=== PATIENT | male | born 1960 | race Caucasian/White ===

== ENCOUNTER 2016-10-18 15:25 | Emergency (ER) | payer MEDICAID ==
--- NOTE | 2016-10-18 16:22 | EDM.PDOC ---
ED HPI Trauma - General Chief Complaint: Lower Extremity Injury/Pain Stated Complaint: FOOT PAIN - BOTH FEET Time Seen by Provider: 10/18/16 16:12 Source: Reports: Patient History Limitations: Reports: No limitations - History of Present Illness INITIAL COMMENTS - FREE TEXT/NARRATIVE: Patient presents for evaluation and treatment of an acute gout flare. Patient reports that this is been going on for the last 3 or 4 days. He says he cannot walk due to the pain. He reports that it is the worst in the left great toe. he also reports pain to the right lateral ankle. He states he cannot walk due to the pain. He reports erythema and swelling to the left toes. He reports that he has had gout before and has been on colchicine previously. He is not on any medications to lower his uric acid levels. While he was being triaged the nurse noticed that his heart rate was rapid and irregular. He is in A. fib and has a history of A. fib. He is currently on metoprolol twice a day and he states that he has been taking this as prescribed. He states when he first was diagnosed A. fib with RVR he would have shortness of breath, chest pain and diaphoresis. He denies any of this today. Specifically, he denies any chest pain, palpitations, fatigue, diaphoresis, shortness of breath, dizziness or lightheadedness. He states that he was seeing a primary care provider and was told to see cardiology to havea cardioversion but has never had this done. He states that he has improved his diet and is no longer drinking alcohol. He currently takes a 325 mg aspirin a day. He was unable to afford xarelto. He was previously on Coumadin, is it unclear why he went off of this medication. He did not refill it. Allergies/ADRs: Allergies No Known Allergies Allergy (Verified 08/15/14 23:21) Home Medications: Ambulatory Orders Aspirin [Ecotrin] 325 mg PO DAILY 08/15/14 [Confirmed 10/18/16] Naproxen 500 mg PO TID #30 tablet 04/22/15 [Confirmed 10/18/16] oxyCODONE HCl/Acetaminophen [Percocet 5-325 mg Tablet] 1 - 2 each PO Q4H PRN # 20 tablet 06/25/16 [Confirmed 10/18/16] Acetaminophen/oxyCODONE [Percocet 325-5 MG] 1 tab PO Q6H PRN #20 tablet Diltiazem [Cardizem CD] 120 mg PO DAILY #30 cap.cd 10/18/16 Metoprolol Tartrate 50 mg PO BID 10/18/16 [Confirmed 10/18/16] Prednisone [IJD: predniSONE] 40 mg PO WITHBREAKFAST #10 tab 10/18/16 Warfarin [Coumadin] 5 mg PO DAILY #10 tablet 10/18/16 Past Medical History - Past Health History Medical/Surgical History: Denies Medical/Surgical History Cardiovascular History: Reports: Afib, Hypertension Other Cardiovascular History: stopped taking xarelto as could not afford it but is on adult asa Musculoskeletal History: Reports: Gout - Past Surgical History Other Cardiovascular Surgeries/Procedures: angiogram Social & Family History - Tobacco Use Smoking Status *Q: Never Smoker - Caffeine Use Caffeine Use: Reports: Soda - Alcohol Use Days Per Week of Alcohol Use: 3 Number of Drinks Per Day: 0 Total Drinks Per Week: 0 - Recreational Drug Use Recreational Drug Use: No Drug Use in Last 12 Months: No Recreational Drug Type: Reports: Marijuana/Hashish Recreational Drug Use Frequency: Rarely - Living Situation & Occupation Living situation: Reports: Occupation: employed Review of Systems - Review of Systems Review Of Systems: See Below Constitutional: Reports: other (denies fatigue). Denies: diaphoresis Ears: Denies: dizziness Respiratory: Denies: Shortness of Breath Cardiovascular: Reports: irregular heart rate. Denies: chest pain, lightheadedness, palpitations Musculoskeletal: Reports: foot pain (left foto, right ankle), joint swelling ( left toes, right lateral ankle) Skin: Reports: erythema (left toes) Neurological: Reports: Difficulty Walking. Denies: Numbness, Tingling Trauma Exam - Physical Exam Exam: See Below Exam Limited By: No limitations General Appearance: Reports: alert, WD/WN, no apparent distress Respiratory Exam: Reports: no respiratory distress, lungs clear, normal breath sounds Cardiovascular: Reports: normal peripheral pulses, no murmur, tachycardia, irregularly irregular GI/Abdominal: Reports: soft, non tender Extremities: Reports: joint effusion (left great toe), pain with movement, tenderness (left toes, rigt lateral ankle), unable to bear weight Neurologic: Reports: alert, normal mood/affect Skin: Reports: Other (erythema to the left toes) EKG INTERPRETATION EKG Date: 10/18/16 Time: 16:50 Rhythm: a-fib Rate (beats/min): 129 (86 to 165) Mousie: normal P-wave: absent QRS: normal ST-T: normal QT: normal EKG Interpretation Comments: a.fib with a rate of 86-15 bpm. Q wave in AVF and near q wave in III. Consider inferior wall ischemia. Reviewed by myself and Dr. Olmedo. Course - Vital Signs Last Recorded V/S: Last Vital Signs Temp 36.7 C 10/18/16 15:35 Pulse 127 H 10/18/16 19:41 Resp 18 10/18/16 19:41 BP 136/95 H 10/18/16 19:41 Pulse Ox 95 10/18/16 19:41 - Orders/Labs/Meds Orders: Active Orders 24 hr Category Date Time Status Cardiac Monitoring [RC] . DIRECTED Care 10/18/16 16:23 Active EKG 12 Lead [EKG Documentation Completion] [RC] STAT Care 10/18/16 16:23 Active Peripheral IV Care [RC] . DIRECTED Care 10/18/16 16:23 Active Chest 1V Frontal [CR] Stat Exams 10/18/16 16:25 Taken Peripheral IV Insertion Adult [OM.PC] Routine Oth 10/18/16 16:22 Ordered Labs: Laboratory Tests 10/18/16 10/18/16 10/18/16 Range/Units 16:30 16:30 16:30 WBC 10.12 H (4.23-9.07) K/mm3 RBC 5.15 (4.63-6.08) M/mm3 Hgb 16.4 (13.7-17.5) gm/L Hct 47.4 (40.1-51.0) % MCV 92.0 (79.0-92.2) fl MCH 31.8 (25.7-32.2) pg MCHC 34.6 (32.2-35.5) g/dl RDW Std Deviation 45.1 H (35.1-43.9) fL Plt Count 210 (163-337) K/mm3 MPV 9.7 (9.4-12.3) fl Neut % (Auto) 58.5 (34.0-67.9) % Lymph % (Auto) 28.6 (21.8-53.1) % Wharton % (Auto) 11.9 (5.3-12.2) % Eos % (Auto) 0.5 L (0.8-7.0) Baso % (Auto) 0.2 (0.1-1.2) % Neut # 5.93 H (1.78-5.38) K/mm3 Lymph # 2.89 (1.32-3.57) K/mm3 Wharton # 1.20 H (0.30-0.82) K/mm3 Eos # 0.05 (0.04-0.54) K/mm3 Baso # 0.02 (0.01-0.08) K/mm3 PT (8.0-13.0) SECONDS INR Sodium 140 (136-145) mEq/L Potassium 4.0 (3.5-5.1) mEq/L Chloride 104 (98-107) mEq/L Carbon Dioxide 24 (21-32) mEq/L Anion Gap 16.0 H (5-15) BUN 8 (7-18) mg/dL Creatinine 1.1 (0.7-1.3) mg/dL Est Cr Clr Drug Dosing 77.96 mL/min Estimated GFR (MDRD) > 60 (>60) mL/min BUN/Creatinine Ratio 7.3 L (14-18) Glucose 99 (74-106) mg/dL Uric Acid (3.5-7.2) mg/dL Calcium 8.9 (8.5-10.1) mg/dL Total Bilirubin 1.4 H (0.2-1.0) mg/dL AST 18 (15-37) U/L ALT 31 (16-63) U/L Alkaline Phosphatase 91 (46-116) U/L CK-MB (CK-2) (0-3.6) ng/ml Troponin I < 0.017 (0.00-0.056) ng/mL B-Natriuretic Peptide 546 H (0-100) pg/mL Total Protein 7.4 (6.4-8.2) g/dl Albumin 3.9 (3.4-5.0) g/dl Globulin 3.5 gm/dL Albumin/Globulin Ratio 1.1 (1-2) 10/18/16 10/18/16 Range/Units 16:30 16:30 WBC (4.23-9.07) K/mm3 RBC (4.63-6.08) M/mm3 Hgb (13.7-17.5) gm/L Hct (40.1-51.0) % MCV (79.0-92.2) fl MCH (25.7-32.2) pg MCHC (32.2-35.5) g/dl RDW Std Deviation (35.1-43.9) fL Plt Count (163-337) K/mm3 MPV (9.4-12.3) fl Neut % (Auto) (34.0-67.9) % Lymph % (Auto) (21.8-53.1) % Wharton % (Auto) (5.3-12.2) % Eos % (Auto) (0.8-7.0) Baso % (Auto) (0.1-1.2) % Neut # (1.78-5.38) K/mm3 Lymph # (1.32-3.57) K/mm3 Wharton # (0.30-0.82) K/mm3 Eos # (0.04-0.54) K/mm3 Baso # (0.01-0.08) K/mm3 PT 10.9 (8.0-13.0) SECONDS INR 1.00 Sodium (136-145) mEq/L Potassium (3.5-5.1) mEq/L Chloride (98-107) mEq/L Carbon Dioxide (21-32) mEq/L Anion Gap (5-15) BUN (7-18) mg/dL Creatinine (0.7-1.3) mg/dL Est Cr Clr Drug Dosing mL/min Estimated GFR (MDRD) (>60) mL/min BUN/Creatinine Ratio (14-18) Glucose (74-106) mg/dL Uric Acid 10.5 H (3.5-7.2) mg/dL Calcium (8.5-10.1) mg/dL Total Bilirubin (0.2-1.0) mg/dL AST (15-37) U/L ALT (16-63) U/L Alkaline Phosphatase (46-116) U/L CK-MB (CK-2) 0.9 (0-3.6) ng/ml Troponin I (0.00-0.056) ng/mL B-Natriuretic Peptide (0-100) pg/mL Total Protein (6.4-8.2) g/dl Albumin (3.4-5.0) g/dl Globulin gm/dL Albumin/Globulin Ratio (1-2) Meds: Medications Discontinued Medications Generic Name Dose Route Start Last Admin Trade Name Melchorq PRN Reason Stop Dose Admin Colchicine 0.6 mg 10/18/16 16:29 10/18/16 16:57 Colcrys PO 10/18/16 16:30 0.6 mg ONETIME ONE Administration Colchicine 0.6 mg 10/18/16 17:49 10/18/16 17:59 Colcrys PO 10/18/16 17:50 0.6 mg ONETIME ONE Administration Colchicine 0.6 mg 10/18/16 18:20 10/18/16 19:17 Colcrys PO 10/18/16 18:21 0.6 mg ONETIME ONE Administration Diltiazem HCl 10 mg 10/18/16 16:25 10/18/16 16:58 Diltiazem IVPUSH 10/18/16 16:26 10 mg ONETIME ONE Administration Diltiazem HCl 120 mg 10/18/16 18:19 10/18/16 19:17 Cardizem Cd PO 10/18/16 18:20 120 mg ONETIME ONE Administration Furosemide 20 mg 10/18/16 17:51 10/18/16 17:59 Lasix IVPUSH 10/18/16 17:52 20 mg NOW ONE Administration Hydromorphone HCl 0.5 mg 10/18/16 16:25 10/18/16 16:55 Dilaudid IVPUSH 10/18/16 16:26 0.5 mg NOW STA Administration Sodium Chloride Confirm 10/18/16 16:45 10/18/16 19:10 Normal Saline Administered 10/18/16 16:46 Not Given Dose 1,000 mls @ as directed .ROUTE .STK-MED ONE Ketorolac Tromethamine 30 mg 10/18/16 16:26 10/18/16 16:49 Toradol IVPUSH 10/18/16 16:27 30 mg ONETIME ONE Administration Methylprednisolone Sodium Succinate 125 mg 10/18/16 16:25 10/18/16 16:52 Solu-Medrol IVPUSH 10/18/16 16:26 125 mg ONETIME ONE Administration Sodium Chloride 10 ml 10/18/16 16:23 10/18/16 17:01 Saline Flush FLUSH 10 ml ASDIRECTED PRN Administration Keep Vein Open Warfarin Sodium 10 mg 10/18/16 18:19 10/18/16 19:17 Coumadin PO 10/18/16 18:20 10 mg ONETIME ONE Administration - Radiology Interpretation Free Text/Narrative:: Chest 1view shows no acute intrathoracic process. - Re-Assessments/Exams Free Text/Narrative Re-Assessment/Exam: 10/18/16 18:55 Labs returned. WBC is 10.12, hgb is 16.4 and plts are 210 uric acid is high at 10.5 Trop is normal at <0.017 CKMB is normal at 0.9 BNP is elevated at 546 Sodium is 140, potassium is 4.0 and chloride is 104. Anion gap is 16.0 and glucose is 99 Patient feels improved after the IV solumedrol, dilaudid and colchine x 3. Case was discussed with Dr. Olmedo. Recommended giving IV bolus of 10mg cardizem here in the ER and an oral dose. Heart rate after cardizem bolus was 90 -100. Patient's [id number] score is 2. This comes with a recommendation for anticoagulation. Patient cannot afford xeralto. Was on coumadin previously but did not refill his medication. Agrees to restart coumadin again today. discussed with Dr. Olmedo. Will not bridge with lovenox due to costs concerns. Will start with 10mg PO today in Ed, 7.5mg tomorrow then 5mg daily. Follow-up with PCP this week. Departure - Departure Time of Disposition: 18:56 Disposition: Home, Self-Care 01 Condition: good Clinical Impression: Atrial fibrillation with rapid ventricular response, Gout attack Prescriptions: Acetaminophen/oxyCODONE [Percocet 325-5 MG] 1 tab PO Q6H PRN #20 tablet PRN Reason: Pain Diltiazem [Cardizem CD] 120 mg PO DAILY #30 cap.cd Prednisone [IJD: predniSONE] 40 mg PO WITHBREAKFAST #10 tab Warfarin [Coumadin] 5 mg PO DAILY #10 tablet Instructions: Gout, [id number], Atrial Fibrillation, [id number] Referrals: Sloane Billy PA-C [Primary Care Provider] - Forms: ED Department Discharge Additional Instructions: You were given medication in the ER that can affect your ability to drive and operate machinery. Do not drive or operate machinery within 12 hours of taking prescription narcotic pain medication. Take cardizem as prescribed 1 tab PO daily, start this medication tomorrow, 10-19 Take coumadin as prescribed. Start tomorrow. Take 1.5 tabs or 7.5mg no 10-19-16 then 1 tab or 5mg daily. Follow-up with PCP this week for an INR (for coumadin) check. I also recommend you discuss medication to lower your uric acid levels. Take prednisone as prescribed. 2 tabs (40mg) PO daily x 5 days, start 10-19-16. May take OTC ibuprofen as needed for pain. May take percocet 1-2 tabs PO every 4 -6 hours prn severe pain. No driving or operating machinery within 12 hours of taking the percocet. Percocet can be habit forming, I recommend you take as few of these as needed to control your pain. Please return to the ER if your symptoms change or worsen. - My Orders Last 24 Hours: My Active Orders 10/18/16 16:22 Peripheral IV Insertion Adult [OM.PC] Routine 10/18/16 16:23 Cardiac Monitoring [RC] . DIRECTED EKG 12 Lead [EKG Documentation Completion] [RC] STAT Peripheral IV Care [RC] . DIRECTED 10/18/16 16:25 Chest 1V Frontal [CR] Stat - Assessment/Plan Last 24 Hours: My Active Orders 10/18/16 16:22 Peripheral IV Insertion Adult [OM.PC] Routine 10/18/16 16:23 Cardiac Monitoring [RC] . DIRECTED EKG 12 Lead [EKG Documentation Completion] [RC] STAT Peripheral IV Care [RC] . DIRECTED 10/18/16 16:25 Chest 1V Frontal [CR] Stat
[2016-10-18] MEDS ORDERED: Sodium Chloride 0.9% 10 ML Syringe FLUSH PRN (16:23)
[2016-10-18] MEDS ORDERED: Diltiazem 25 MG/5 ML SDV IVPUSH ONE (16:25)
[2016-10-18] MEDS ORDERED: HYDROmorphone 0.5 MG/0.5 ML Syringe IVPUSH STA (16:25)
[2016-10-18] MEDS ORDERED: methylPREDNISolone Sodium Succinate 125 MG/2 ML SDV IVPUSH ONE (16:25)
[2016-10-18] MEDS ORDERED: Ketorolac 30 MG/ML SDV IVPUSH ONE (16:26)
[2016-10-18] MEDS ORDERED: Colchicine 0.6 MG Tab PO ONE ×3 (16:29→18:20)
[2016-10-18] MEDS ORDERED: Sodium Chloride 0.9% 1,000 ML ONE (16:45)
[2016-10-18] MEDS ORDERED: Furosemide 40 MG/4 ML VIAL IVPUSH ONE (17:51)
[2016-10-18] MEDS ORDERED: Diltiazem 120 MG Cap.CD PO ONE (18:19)
[2016-10-18] MEDS ORDERED: Warfarin 10 MG Tab PO ONE (18:19)
[2016-10-18 19:18] VITALS: BP 136/95
--- NOTE | 2016-10-20 08:01 | CR ---
Chest: Portable view of the chest was obtained. Comparison: Previous chest x-ray of 06/25/16. Heart size at the upper limits of normal. Tortuous thoracic aorta is seen. Lungs are clear with no acute infiltrates. Bony structures are grossly intact. Impression: 1. Nothing acute is identified on portable chest x-ray. Diagnostic code #2
== END 2016-10-18 19:42 | disposition home or self-care (01) ==
LOC: JD.ED 15:25 → SUPCPDRO 15:25 → JD.ED 19:42
DX: I48.91 Unspecified atrial fibrillation (principal); M10.9 Gout, unspecified; I10 Essential (primary) hypertension; Z79.82 Long term (current) use of aspirin; Z79.01 Long term (current) use of anticoagulants; Z79.899 Other long term (current) drug therapy
CPT/HCPCS: 36415; 71010; 80053; 82553; 83880; 84484; 84550; 85025; 85610; 93005; 96374; 96375; 99284; A9270; J1170; J1885; J1940; J2930; J7050; J3490

== ENCOUNTER 2017-06-15 12:46 | Inpatient (IN) | payer MEDICAID ==
[2017-06-15] MEDS ORDERED: LORazepam 2 MG/ML MDV IVPUSH ONE (13:16)
[2017-06-15] MEDS ORDERED: Magnesium Sulfate/Water 2 GM in Premix Bag 1 BAG IV ONE (13:16)
[2017-06-15] MEDS ORDERED: Diltiazem 25 MG/5 ML SDV IVPUSH ONE (13:16)
[2017-06-15] MEDS ORDERED: Sodium Chloride 0.9% 1,000 ML IV ONE (13:17)
--- NOTE | 2017-06-15 13:24 | EDM.PDOC ---
ED HPI GENERAL MEDICAL PROBLEM - General Chief Complaint: Cardiovascular Problem Stated Complaint: SOB/RACING HEARTBEAT Time Seen by Provider: 06/15/17 13:05 Source of Information: Reports: Patient History Limitations: Reports: No Limitations - History of Present Illness INITIAL COMMENTS - FREE TEXT/NARRATIVE: Patient's 57-year-old male with a history of A. fib/A flutter who presents to the ED with a fast heart rate and shortness of breath. Patient states he has chronic A. fib and is supposed be taking metoprolol, warfarin, and Cardizem. States he's been taking naproxen and aspirin full adult dose every day. States he stopped taking all these medications minus naproxen and aspirin due to cost. 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 He had PFTs and echocardiogram obtained. He was suppose to schedule cardioversion but did not return. Patient also has a history of alcohol abuse. States he normally drinks about a pint of fireball for about 3-4 days and then stops. States his last drink was approximately 3 days ago. In addition he has history of gout and notes that he is currently having a gout attack to his left big toe and also to his right pinky finger. States pattern similar to previous episodes. They diagnosed with pseudogout. He has been experiencing shortness of breath with nonproductive cough. He has been experiencing PND and orthopnea. He's gained approximately 5-10 pounds over the last month. Denies any chest pain, nausea/vomiting, diaphoresis, dizziness, syncopal episodes, or any additional complaints. Middle Chest Pain Score (Numeric/FACES): 0 Lower Pelvic Pain Score (Numeric/FACES): 7 Left Feet Pain Score (Numeric/FACES): 5 - Related Data Allergies Allergy/AdvReac Type Severity Reaction Status Date / Time No Known Allergies Allergy Verified 06/15/17 13:01 Home Meds: Home Meds Aspirin [Ecotrin] 325 mg PO DAILY 08/15/14 [History] Naproxen 500 mg PO TID #30 tablet 04/22/15 [Rx] Acetaminophen/oxyCODONE [Percocet 325-5 MG] 1 tab PO Q6H PRN #20 tablet [Rx] Diltiazem [Cardizem CD] 120 mg PO DAILY #30 cap.cd 10/18/16 [Rx] Metoprolol Tartrate 50 mg PO BID 10/18/16 [History] Warfarin [Coumadin] 5 mg PO DAILY #10 tablet 10/18/16 [Rx] Past Medical History - Past Health History Medical/Surgical History: Denies Medical/Surgical History Cardiovascular History: Reports: Afib, Hypertension Other Cardiovascular History: stopped taking xarelto as could not afford it but is on adult asa Respiratory History: Reports: SOB Musculoskeletal History: Reports: Gout Other Neuro History: broken neck, Halo - Past Surgical History Other Cardiovascular Surgeries/Procedures: angiogram Social & Family History - Family History Family Medical History: Noncontributory - Tobacco Use Smoking Status *Q: Never Smoker - Caffeine Use Caffeine Use: Reports: Soda - Alcohol Use Days Per Week of Alcohol Use: 3 Number of Drinks Per Day: 0 Total Drinks Per Week: 0 - Recreational Drug Use Recreational Drug Use: No Drug Use in Last 12 Months: No Recreational Drug Type: Reports: Marijuana/Hashish Recreational Drug Use Frequency: Rarely - Living Situation & Occupation Living situation: Reports: Occupation: Employed ED ROS GENERAL - Review of Systems Review Of Systems: ROS reveals no pertinent complaints other than HPI. ED EXAM, GENERAL - Physical Exam Exam: See Below Exam Limited By: No Limitations General Appearance: Alert, WD/WN, No Apparent Distress Ears: Hearing Grossly Normal Nose: Normal Inspection Throat/Mouth: Normal Inspection, Normal Oropharynx, Normal Voice, No Airway Compromise Neck: Normal Inspection, Supple Respiratory/Chest: No Respiratory Distress, Lungs Clear, Normal Breath Sounds, No Accessory Muscle Use, Chest Non-Tender Cardiovascular: Normal Peripheral Pulses, No Murmur (None appreciated), Irregularly Irregular (A flutter at a variable rate of 127.) Peripheral Pulses: 2+: Radial (L), Radial (R) GI/Abdominal: Normal Bowel Sounds, Soft, Non-Tender, No Organomegaly, No Distention Back Exam: Normal Inspection Extremities: Normal Inspection, Normal Range of Motion, Non-Tender, No Pedal Edema, Normal Capillary Refill Neurological: Alert, Oriented, CN II-XII Intact, Normal Cognition, No Motor/ Sensory Deficits Psychiatric: Normal Affect, Normal Mood Skin Exam: Warm, Dry, Intact, Normal Color Course - Vital Signs Last Recorded V/S: Last Vital Signs Temp 97.5 F 06/15/17 20:00 Pulse 93 06/15/17 21:56 Resp 20 06/15/17 20:00 BP 143/94 H 06/15/17 21:56 Pulse Ox 97 06/15/17 20:00 - Orders/Labs/Meds Orders: Active Orders 24 hr Category Date Time Status Admission Status [Patient Status] [ADT] Routine ADT 06/15/17 17:28 Active Diltiazem 125 mg Med 06/15/17 14:00 Active Sodium Chloride 0.9% [Normal Saline] 100 ml IV TITRATE Medication Orders Albuterol/Ipratropium (Duoneb 3.0-0.5 Mg/3 Ml) 3 ml NEB Q4H PRN PRN Reason: Shortness Of Breath/wheezing Allopurinol (Zyloprim) 100 mg PO DAILY [facility] Last Admin: 06/15/17 21:46 Dose: 100 mg Diltiazem HCl (Cardizem Cd) 240 mg PO DAILY [facility] Diltiazem HCl 125 mg/ Sodium (Chloride) 125 mls @ 5 mls/hr IV TITRATE JESSICA; 5 MG /HR PRN Reason: Protocol Last Titration: 06/15/17 20:05 Dose: 6 mg/hr, 6 mls/hr Titration: 06/15/17 16:14 Dose: 4 mg/hr, 4 mls/hr Admin: 06/15/17 14:44 Dose: 3 mg/hr, 3 mls/hr Metoprolol Tartrate (Lopressor) 50 mg PO BID [facility] Last Admin: 06/15/17 21:56 Dose: 50 mg Naproxen (Naprosyn) 500 mg PO Q12HR [facility] Last Admin: 06/15/17 21:56 Dose: 500 mg Oxycodone/Acetaminophen (Percocet 325-5 Mg) 1 - 2 tab PO Q6H PRN PRN Reason: Pain Last Admin: 06/15/17 21:44 Dose: 1 tab Temazepam (Restoril) 15 mg PO BEDTIME PRN PRN Reason: Sleep Last Admin: 06/15/17 21:47 Dose: 15 mg Warfarin Sodium (Pharmacy To Dose - Warfarin) 1 dose .XX ASDIRECTED [facility] Labs: Laboratory Tests 06/15/17 06/15/17 06/15/17 Range/Units 13:01 13:01 13:01 WBC 13.41 H (4.23-9.07) K/mm3 RBC 6.06 (4.63-6.08) M/mm3 Hgb 18.6 H (13.7-17.5) gm/L Hct 53.5 H (40.1-51.0) % MCV 88.3 (79.0-92.2) fl MCH 30.7 (25.7-32.2) pg MCHC 34.8 (32.2-35.5) g/dl RDW Std Deviation 44.0 H (35.1-43.9) fL Plt Count 299 (163-337) K/mm3 MPV 9.7 (9.4-12.3) fl Neut % (Auto) 66.8 (34.0-67.9) % Lymph % (Auto) 23.6 (21.8-53.1) % [place] % (Auto) 8.4 (5.3-12.2) % Eos % (Auto) 0.6 L (0.8-7.0) Baso % (Auto) 0.2 (0.1-1.2) % Neut # (Auto) 8.94 H (1.78-5.38) K/mm3 Lymph # (Auto) 3.17 (1.32-3.57) K/mm3 [place] # (Auto) 1.13 H (0.30-0.82) K/mm3 Eos # (Auto) 0.08 (0.04-0.54) K/mm3 Baso # (Auto) 0.03 (0.01-0.08) K/mm3 Manual Slide Review Abnormal smear PT 12.0 (8.0-13.0) SECONDS INR 1.09 APTT (22-36) SECONDS D-Dimer, Quantitative (0.19-0.59) mg/L Sodium 136 (136-145) mEq/L Potassium 4.2 (3.5-5.1) mEq/L Chloride 100 (98-107) mEq/L Carbon Dioxide 25 (21-32) mEq/L Anion Gap 15.2 H (5-15) BUN 13 (7-18) mg/dL Creatinine 1.4 H (0.7-1.3) mg/dL Est Cr Clr Drug Dosing 43.74 mL/min Estimated GFR (MDRD) 52 (>60) mL/min BUN/Creatinine Ratio 9.3 L (14-18) Glucose 109 H (74-106) mg/dL Uric Acid 10.2 H (3.5-7.2) mg/dL Calcium 9.2 (8.5-10.1) mg/dL Magnesium 1.9 (1.8-2.4) mg/dl Total Bilirubin 1.9 H (0.2-1.0) mg/dL AST 31 (15-37) U/L ALT 35 (16-63) U/L Alkaline Phosphatase 90 (46-116) U/L Troponin I < 0.017 (0.00-0.056) ng/mL C-Reactive Protein (<1.0) mg/dL NT-Pro-B Natriuret Pep 6192 H (0-125) pg/mL Total Protein 8.1 (6.4-8.2) g/dl Albumin 3.9 (3.4-5.0) g/dl Globulin 4.2 gm/dL Albumin/Globulin Ratio 0.9 L (1-2) TSH 3rd Generation 2.123 (0.358-3.74) uIU/mL Urine Opiates Screen (NEGATIVE) Ur Buprenorphine Scrn (NEGATIVE) Ur Oxycodone Screen (NEGATIVE) Urine Methadone Screen (NEGATIVE) Ur Propoxyphene Screen (NEGATIVE) Ur Barbiturates Screen (NEGATIVE) Ur Tricyclics Screen (NEGATIVE) Ur Phencyclidine Scrn (NEGATIVE) Ur Amphetamine Screen (NEGATIVE) U Methamphetamines Scrn (NEGATIVE) U Benzodiazepines Scrn (NEGATIVE) U Cocaine Metab Screen (NEGATIVE) U Marijuana (THC) Screen (NEGATIVE) 06/15/17 06/15/17 06/15/17 Range/Units 13:01 13:01 13:01 WBC (4.23-9.07) K/mm3 RBC (4.63-6.08) M/mm3 Hgb (13.7-17.5) gm/L Hct (40.1-51.0) % MCV (79.0-92.2) fl MCH (25.7-32.2) pg MCHC (32.2-35.5) g/dl RDW Std Deviation (35.1-43.9) fL Plt Count (163-337) K/mm3 MPV (9.4-12.3) fl Neut % (Auto) (34.0-67.9) % Lymph % (Auto) (21.8-53.1) % [place] % (Auto) (5.3-12.2) % Eos % (Auto) (0.8-7.0) Baso % (Auto) (0.1-1.2) % Neut # (Auto) (1.78-5.38) K/mm3 Lymph # (Auto) (1.32-3.57) K/mm3 [place] # (Auto) (0.30-0.82) K/mm3 Eos # (Auto) (0.04-0.54) K/mm3 Baso # (Auto) (0.01-0.08) K/mm3 Manual Slide Review PT (8.0-13.0) SECONDS INR APTT 28 (22-36) SECONDS D-Dimer, Quantitative 0.82 H (0.19-0.59) mg/L Sodium (136-145) mEq/L Potassium (3.5-5.1) mEq/L Chloride (98-107) mEq/L Carbon Dioxide (21-32) mEq/L Anion Gap (5-15) BUN (7-18) mg/dL Creatinine (0.7-1.3) mg/dL Est Cr Clr Drug Dosing mL/min Estimated GFR (MDRD) (>60) mL/min BUN/Creatinine Ratio (14-18) Glucose (74-106) mg/dL Uric Acid (3.5-7.2) mg/dL Calcium (8.5-10.1) mg/dL Magnesium (1.8-2.4) mg/dl Total Bilirubin (0.2-1.0) mg/dL AST (15-37) U/L ALT (16-63) U/L Alkaline Phosphatase (46-116) U/L Troponin I (0.00-0.056) ng/mL C-Reactive Protein 2.6 H* (<1.0) mg/dL NT-Pro-B Natriuret Pep (0-125) pg/mL Total Protein (6.4-8.2) g/dl Albumin (3.4-5.0) g/dl Globulin gm/dL Albumin/Globulin Ratio (1-2) TSH 3rd Generation (0.358-3.74) uIU/mL Urine Opiates Screen (NEGATIVE) Ur Buprenorphine Scrn (NEGATIVE) Ur Oxycodone Screen (NEGATIVE) Urine Methadone Screen (NEGATIVE) Ur Propoxyphene Screen (NEGATIVE) Ur Barbiturates Screen (NEGATIVE) Ur Tricyclics Screen (NEGATIVE) Ur Phencyclidine Scrn (NEGATIVE) Ur Amphetamine Screen (NEGATIVE) U Methamphetamines Scrn (NEGATIVE) U Benzodiazepines Scrn (NEGATIVE) U Cocaine Metab Screen (NEGATIVE) U Marijuana (THC) Screen (NEGATIVE) 06/15/17 Range/Units 16:25 WBC (4.23-9.07) K/mm3 RBC (4.63-6.08) M/mm3 Hgb (13.7-17.5) gm/L Hct (40.1-51.0) % MCV (79.0-92.2) fl MCH (25.7-32.2) pg MCHC (32.2-35.5) g/dl RDW Std Deviation (35.1-43.9) fL Plt Count (163-337) K/mm3 MPV (9.4-12.3) fl Neut % (Auto) (34.0-67.9) % Lymph % (Auto) (21.8-53.1) % [place] % (Auto) (5.3-12.2) % Eos % (Auto) (0.8-7.0) Baso % (Auto) (0.1-1.2) % Neut # (Auto) (1.78-5.38) K/mm3 Lymph # (Auto) (1.32-3.57) K/mm3 [place] # (Auto) (0.30-0.82) K/mm3 Eos # (Auto) (0.04-0.54) K/mm3 Baso # (Auto) (0.01-0.08) K/mm3 Manual Slide Review PT (8.0-13.0) SECONDS INR APTT (22-36) SECONDS D-Dimer, Quantitative (0.19-0.59) mg/L Sodium (136-145) mEq/L Potassium (3.5-5.1) mEq/L Chloride (98-107) mEq/L Carbon Dioxide (21-32) mEq/L Anion Gap (5-15) BUN (7-18) mg/dL Creatinine (0.7-1.3) mg/dL Est Cr Clr Drug Dosing mL/min Estimated GFR (MDRD) (>60) mL/min BUN/Creatinine Ratio (14-18) Glucose (74-106) mg/dL Uric Acid (3.5-7.2) mg/dL Calcium (8.5-10.1) mg/dL Magnesium (1.8-2.4) mg/dl Total Bilirubin (0.2-1.0) mg/dL AST (15-37) U/L ALT (16-63) U/L Alkaline Phosphatase (46-116) U/L Troponin I (0.00-0.056) ng/mL C-Reactive Protein (<1.0) mg/dL NT-Pro-B Natriuret Pep (0-125) pg/mL Total Protein (6.4-8.2) g/dl Albumin (3.4-5.0) g/dl Globulin gm/dL Albumin/Globulin Ratio (1-2) TSH 3rd Generation (0.358-3.74) uIU/mL Urine Opiates Screen Negative (NEGATIVE) Ur Buprenorphine Scrn Negative (NEGATIVE) Ur Oxycodone Screen Negative (NEGATIVE) Urine Methadone Screen Negative (NEGATIVE) Ur Propoxyphene Screen Negative (NEGATIVE) Ur Barbiturates Screen Negative (NEGATIVE) Ur Tricyclics Screen Negative (NEGATIVE) Ur Phencyclidine Scrn Negative (NEGATIVE) Ur Amphetamine Screen Negative (NEGATIVE) U Methamphetamines Scrn Negative (NEGATIVE) U Benzodiazepines Scrn Negative (NEGATIVE) U Cocaine Metab Screen Negative (NEGATIVE) U Marijuana (THC) Screen Presumptive positive H (NEGATIVE) Meds: Medications Generic Name Dose Route Start Last Admin Trade Name Freq PRN Reason Stop Dose Admin Albuterol/Ipratropium 3 ml 06/15/17 20:55 Duoneb 3.0-0.5 Mg/3 Ml NEB Q4H PRN Shortness Of Breath/wheezing Allopurinol 100 mg 06/15/17 21:00 06/15/17 21:46 Zyloprim PO 100 mg DAILY JESSICA Administration Diltiazem HCl 240 mg 06/16/17 09:00 Cardizem Cd PO DAILY JESSICA Diltiazem HCl 125 mg/ Sodium 125 mls @ 5 mls/hr 06/15/17 14:00 06/15/17 20:05 Chloride IV 6 mg/hr TITRATE JESSICA 6 mls/hr Protocol Titration 5 MG/HR Metoprolol Tartrate 50 mg 06/15/17 21:45 06/15/17 21:56 Lopressor PO 50 mg BID JESSICA Administration Naproxen 500 mg 06/15/17 21:00 06/15/17 21:56 Naprosyn PO 500 mg Q12HR JESSICA Administration Oxycodone/Acetaminophen 1 - 2 tab 06/15/17 21:02 06/15/17 21:44 Percocet 325-5 Mg PO 1 tab Q6H PRN Administration Pain Temazepam 15 mg 06/15/17 20:55 06/15/17 21:47 Restoril PO 15 mg BEDTIME PRN Administration Sleep Warfarin Sodium 1 dose 06/15/17 21:15 Pharmacy To Dose - Warfarin .XX ASDIRECTED [facility] Discontinued Medications Generic Name Dose Route Start Last Admin Trade Name Freq PRN Reason Stop Dose Admin Aspirin 325 mg 06/16/17 09:00 Ecotrin PO DAILY JESSICA Diltiazem HCl 15 mg 06/15/17 13:16 06/15/17 13:34 Diltiazem IVPUSH 06/15/17 13:17 15 mg NOW ONE Administration Enoxaparin Sodium 100 mg 06/15/17 21:05 06/15/17 21:47 Lovenox SUBCUT 06/15/17 21:06 100 mg ONETIME ONE Administration Furosemide 40 mg 06/15/17 15:30 06/15/17 16:08 Lasix IVPUSH 06/15/17 15:31 40 mg NOW ONE Administration Magnesium Sulfate 2 gm/ Premix 50 mls @ 25 mls/hr 06/15/17 13:16 06/15/17 13: 37 IV 06/15/17 15:15 25 mls/hr ONETIME ONE Administration Sodium Chloride 1,000 mls @ 75 mls/hr 06/15/17 13:17 06/15/17 13:32 Normal Saline IV 06/16/17 02:36 75 mls/hr ONETIME ONE Administration Sodium Chloride 100 mls @ 60 mls/hr 06/15/17 15:30 06/15/17 15:30 Normal Saline IV 60 mls/hr ASDIRECTED JESSICA Administration Influenza Virus Vaccine 1 each 06/15/17 18:37 Pharmacy To Dose - Influenza Vaccine IM 06/15/17 18:38 ONETIME ONE Influenza Virus Vaccine 60 mcg 06/15/17 18:45 Flulaval Quad [id number] IM 06/15/17 18:46 .ONCE ONE Iopamidol 100 ml 06/15/17 15:17 06/15/17 15:30 Isovue-370 (76%) IVPUSH 06/15/17 15:18 100 ml ONETIME ONE Administration Lorazepam 0.5 mg 06/15/17 13:16 06/15/17 13:33 Ativan IVPUSH 06/15/17 13:17 0.5 mg ONETIME ONE Administration Methylprednisolone Sodium Succinate 125 mg 06/15/17 20:58 06/15/17 21:47 Solu-Medrol IVPUSH 06/15/17 20:59 125 mg ONETIME ONE Administration Sodium Chloride 10 ml 06/15/17 15:17 06/15/17 15:30 Saline Flush FLUSH 06/15/17 15:18 10 ml ONETIME ONE Administration Warfarin Sodium 10 mg 06/15/17 21:04 06/15/17 21:46 Coumadin PO 06/15/17 21:05 10 mg ONETIME ONE Administration - Re-Assessments/Exams Free Text/Narrative Re-Assessment/Exam: IV established with normal saline 75 mL per hour, diltiazem 15 mg IV push, lorazepam 0.5 mg IVP for alcohol withdrawals, magnesium 2 g IV. Initial labs and studies include CBC, chem 14, uric acid, crp, urine drug tox, coag studies, magnesium, proBNP, troponin, cxr, and TSH. EKG atrial flutter with variable conduction no ischemic changes with left axis deviation and left ventricle hypertrophy. Echocardiogram obtained August 17, 2014 impression: Left ventricular ejection fraction by visual estimation is 15%. Left ventricle internal cavity size is normal. Elevated mean atrial pressure. There is moderate biatrial dilatation. Mild mitral regurgitation. Right ventricle systolic pressure is mildly elevated at 42.0 mmHg. The inferior vena cava is dilated with respiratory size variation less than 50%. 06/15/17 13:54 Patients heart has lowered.Continues to be atrial flutter with variable conduction rate 70s to 90s blood pressure 08/29/90. Ordered Cardizem drip per a-fib/flutter protocol. 06/15/17 14:06 I did not order CXR or D-Dimer in error. This has been ordered. 06/15/17 14:20 Chest x-ray no acute findings or changes noted in comparison to previous x-ray obtained October 2016. Additional EKG obtained with decrease in heart rate noted. Atrial flutter variable conduction rate 84-144 which is decreased from 85-152. Blood pressures stable. 06/15/17 14:38 D-dimer 0.82. Once chemistry panels back he will get a CTA of the chest. Labs reviewed: Sodium 136, CO2 25, AG 15.2, heart 1.4, glucose 109, uric acid elevated 10.2, troponin less than 0.017, CRP 2.6, pro-BNP 6000 192, TSH 2.123, white blood cell count 13.41, hemoglobin 18.6, platelet count 299. ProBNP was 6192 no prior results to compare with. Ordered 40 mg of Lasix. Patient's had a history of PND and orthopnea. Magnesium is 1.9. Urine sample uncollected. Urine drug tox pending. CTA of the chest has been ordered. 06/15/17 16:10 CTA of the chest impression: Patchy parenchymal density within the left upper lung possibly due to pneumonia. Please correlate if patient has infectious symptoms. 7 mm nodule within the right upper lung. Recommend follow- up CT chest in 6 months which could be performed without contrast. Followed chest CT would occur December 2017. No findings of pulmonary embolism other than incidental findings as noted above. 06/15/17 16:[address] Marin, he has agreed to admit the patient to the ICU. MCG completed. Urine drug tox positive for marijuana. Departure - Departure Time of Disposition: 16:17 Disposition: Admitted As Inpatient 64 Condition: Fair Clinical Impression: Atrial fibrillation with rapid ventricular response - My Orders Last 24 Hours: My Active Orders 06/15/17 14:00 Diltiazem 125 mg Sodium Chloride 0.9% [Normal Saline] 100 ml IV TITRATE 06/15/17 17:28 Admission Status [Patient Status] [ADT] Routine - Assessment/Plan Last 24 Hours: My Active Orders 06/15/17 14:00 Diltiazem 125 mg Sodium Chloride 0.9% [Normal Saline] 100 ml IV TITRATE 06/15/17 17:28 Admission Status [Patient Status] [ADT] Routine
[2017-06-15] MEDS ORDERED: Diltiazem 125 MG in Sodium Chloride 0.9% 100 ML IV SCH (14:00)
[2017-06-15] MEDS ORDERED: Sodium Chloride 0.9% 10 ML Syringe FLUSH ONE (15:17)
[2017-06-15] MEDS ORDERED: Iopamidol 755 Mg/ML 100 ML Bottle IVPUSH ONE (15:17)
--- NOTE | 2017-06-15 15:18 | CR ---
Chest: Portable view of the chest is obtained. Comparison: Prior chest x-ray of 10/18/16. Heart size at the upper limits of normal. Tortuous thoracic aorta is seen. Lungs are clear. Bony structures are grossly intact. Impression: 1. Nothing acute is identified on portable chest x-ray. No significant change is seen from previous study. Diagnostic code #2
[2017-06-15] MEDS ORDERED: Furosemide 40 MG/4 ML VIAL IVPUSH ONE (15:30)
[2017-06-15] MEDS ORDERED: Sodium Chloride 0.9% 100 ML IV SCH (15:30)
--- NOTE | 2017-06-15 15:52 | CT ---
CT chest CT chest Technique: Multiple axial sections through the chest were obtained. Intravenous contrast was utilized. Comparison: Ventilation/perfusion lung scan dated 08/16/14 and chest x-ray performed earlier on the same day. Findings: Pulmonary arteries are well-opacified. No filling defects are identified to indicate pulmonary embolism. Mediastinum and hilar regions show no adenopathy or mass. Mild coronary artery calcification is seen. No pericardial thickening is noted. Mild cardiomegaly is seen. Small portion of the visualized upper abdominal structures appear within normal limits. Incidental dependent atelectasis seen posteriorly within both lungs. Patchy area of increased density is noted within the left upper lung which could represent small area of pneumonia. Nodule is identified within the right upper lung measuring 7 mm. Lungs otherwise are clear. Impression: 1. Patchy parenchymal density within the left upper lung possibly due to pneumonia. Please correlate if patient has infectious symptoms. 2. 7 mm nodule within the right upper lung. Recommend follow-up chest CT in 6 months which can be performed without contrast. This follow-up chest CT would occurred Dec, 2017. 3. No findings of pulmonary embolism. Other incidental findings as noted above. Diagnostic code #9
[2017-06-15] MEDS ORDERED: FLU Vacc QS 2017-18 (6mos UP)/PF 60 MCG/0.5 ML Syringe IM ONE (18:45)
[2017-06-15] MEDS ORDERED: Temazepam 15 MG Cap PO PRN (20:55)
[2017-06-15] MEDS ORDERED: Albuterol/Ipratropium 3.0-0.5 MG/3 ML Neb Soln NEB PRN (20:55)
[2017-06-15] MEDS ORDERED: methylPREDNISolone Sodium Succinate 125 MG/2 ML SDV IVPUSH ONE (20:58)
[2017-06-15] MEDS ORDERED: Acetaminophen/oxyCODONE 325-5 MG Tab PO PRN (21:02)
[2017-06-15] MEDS ORDERED: Warfarin 10 MG Tab PO ONE (21:04)
[2017-06-15] MEDS ORDERED: Enoxaparin 100 MG/1 ML Syringe SUBCUT ONE (21:05)
[2017-06-15] MEDS: Allopurinol 100 MG Tab PO SCH (21:46)
[2017-06-15] MEDS: Naproxen 500 MG Tab PO SCH (21:56)
[2017-06-15] MEDS: Metoprolol Tartrate 50 MG Tab PO SCH (21:56)
--- NOTE | 2017-06-15 23:42 | PCM.HP ---
H&P History of Present Illness - General Date of Service: 06/15/17 Admit Problem/Dx: A-fib with RVR Source of Information: Patient, Old Records, Provider, RN History Limitations: Reports: No Limitations - History of Present Illness Initial Comments - Free Text/Narative: Julius Sheehan is a 57 yo male who presents to our ED after noon with a "fast heart rate" and shortness of breath. The patient has a history of A. fib\\a flutter. Patient reports he is supposed to be taking metoprolol, warfarin and Cardizem however he has stopped taking them due to cost. Reports also been taking naproxen and aspirin every day. He reports being evaluated by Dr. Pardo disc sander at [facility] seeing Lit in [place] 2 years prior. PFTs and echo were obtained. This was scheduled cardioversion but did not return. Reports a history of alcohol abuse. Only drinks about a pint of fireball for 3- 4 days and stops last drink was about 3 days prior. In addition he has a history of gout. Reports a current gout attack of his left big toe and his right pinky finger. He has had prior episodes with gout attacks in these locations.he's been diagnosed with pseudogout in the past. He reports shortness of breath, nonproductive cough, PND, orthopnea he's gained 5-10 pounds over the last month. Denies any chest pain, nausea, vomiting, diaphoresis, dizziness, syncopal episodes. in the ED Was 97.5. Pulse 93. Respirations 20. Blood pressure 143/94. Pulse ox 97%. Labs were obtained: WBC 13.41. Hemoglobin 18.6. Hematocrit 53.5. He is normocytic. Platelet 299,000. Neutrophils 66.8%. PT was 12. INR 1.09. APTT 28. D-dimer was slightly elevated at 0.82. Sodium was 136. Potassium 4.2. Chloride 100. Carbon dioxide 25. Anion gap was slightly elevated at 15.2. BUN was 13. Creatinine elevated at 1.4. EGFR 52. Glucose was slightly high at 109. Uric acid was high at 10.2. Calcium normal at 9.2. Magnesium 1.9. Total bilirubin high at 1.9. Liver enzymes looked good with AST at 31, ALT at 39, alkaline phosphatase and 90. Troponin was negative with less than 0.017. CRP was elevated at 2.6. ProBNP was very high at 6192. Albumin was normal at 3.9. TSH normal at 2.123. Urine drug screen was negative with the exception of marijuana being presumptive positive. An IV of normal saline at 75 mils per hour was established with Cardizem 15 mg IV push, will lorazepam 0.5 mg IV push, and magnesium 2 g IV push. Twelve-lead EKG was obtained noting atrial flutter with variable conduction. No skin changes with left axis deviation and left ventricular hypertrophy. An echocardiogram was obtained August 17, 2014. At that time the impression read left ventricular ejection fraction by visual estimate is 15%. Left ventricular internal cavity size is normal. Elevated mean arterial pressure. There is moderate biatrial dilation. Mild mitral regurgitation. Right ventricular systolic pressure is mildly elevated at 42.0 mm hemoglobin. Inferior vena cava is dilated with respiratory size variation less than 50%. chest x-ray was compared with prior x-ray from October 2016. No acute findings or changes noted. A flutter continued with very poor conduction with a rate in the 70s to 90s. Blood pressure 127/91. Cardizem drip for A. fib/a flutter protocol initiated. CT of the chest was obtained. This shows patchy parenchymal density within the left upper lung possibly due to pneumonia. Please correlate if patient has infectious symptoms. 7 mm nodule within the right upper lung. Recommend follow-up CT chest in 6 months which could be performed without contrast. Follow chest CT would occurred December 2017. No findings of pulmonary embolism other than incidental findings as noted above. This is interpreted by Dr. Rajan, radiologist. He carries a history of:A. fib, hypertension, and gout. he was never a smoker. He does report utilizing marijuana. he was subsequently admitted to the ICU for further treatment. He is a full code. He does not have a primary care provider here. Middle Chest Pain Score (Numeric/FACES): 0 Lower Pelvic Pain Score (Numeric/FACES): 7 Left Feet Pain Score (Numeric/FACES): 5 right finger Pain Score (Numeric/FACES): 2 - Related Data Allergies/Adverse Reactions: Allergies Allergy/AdvReac Type Severity Reaction Status Date / Time No Known Allergies Allergy Verified 06/15/17 13:01 Home Medications: Home Meds Aspirin [Ecotrin] 325 mg PO DAILY 08/15/14 [History] Naproxen 500 mg PO TID #30 tablet 04/22/15 [Rx] Metoprolol Tartrate 50 mg PO BID 10/18/16 [History] Acetaminophen [Tylenol Extra Strength] 500 mg PO ASDIRECTED PRN 06/15/17 [ History] Ibuprofen 200 mg PO ASDIRECTED PRN 06/15/17 [History] Past Medical History - Past Health History Medical/Surgical History: Denies Medical/Surgical History HEENT History: Reports: Other (See Below) Other HEENT History: ears cauterized when he was young. Cardiovascular History: Reports: Afib, Hypertension Other Cardiovascular History: stopped taking xarelto as could not afford it but is on adult asa Respiratory History: Reports: SOB Musculoskeletal History: Reports: Gout Other Musculoskeletal History: chronic pain in feet Other Neuro History: broken neck, Halo Psychiatric History: Reports: Addiction - Infectious Disease History Infectious Disease History: Reports: Other (See Below) Other Infectious Disease History: rickiets - Past Surgical History Other Cardiovascular Surgeries/Procedures: angiogram Social & Family History - Family History Family Medical History: Noncontributory - Tobacco Use Smoking Status *Q: Never Smoker Second Hand Smoke Exposure: No - Caffeine Use Caffeine Use: Reports: Soda - Alcohol Use Days Per Week of Alcohol Use: 3 Number of Drinks Per Day: 0 Total Drinks Per Week: 0 Date of Last Drink: 06/12/17 Time of Last Drink: 22:00 - Recreational Drug Use Recreational Drug Use: No Drug Use in Last 12 Months: No Recreational Drug Type: Reports: Marijuana/Hashish Recreational Drug Use Frequency: Rarely - Living Situation & Occupation Living situation: Reports: Occupation: Employed H&P Review of Systems - Review of Systems: Review Of Systems: See Below General: Reports: No Symptoms. Denies: Fever, Chills, Malaise, Weakness, Fatigue HEENT: Reports: No Symptoms. Denies: Ear Pain, Eye Pain, Glasses, Headaches, Hearing Changes, Sore Throat, Vertigo, Visual Changes Pulmonary: Reports: No Symptoms. Denies: Shortness of Breath, Wheezing, Pleuritic Chest Pain, Cough, Sputum Cardiovascular: Reports: No Symptoms, Palpitations (occasional but none currently ). Denies: Chest Pain, Dyspnea on Exertion, Edema, Lightheadedness, Blood Pressure Problem Gastrointestinal: Reports: No Symptoms. Denies: Abdominal Pain, Constipation, Diarrhea, Nausea, Vomiting Genitourinary: Reports: No Symptoms. Denies: Dysuria, Frequency, Burning, Pain , Urgency Musculoskeletal: Reports: No Symptoms, Hand Pain (right pinky finger ), Foot Pain (left great toe ). Denies: Neck Pain, Shoulder Pain, Arm Pain, Back Pain, Leg Pain, Muscle Pain Skin: Reports: No Symptoms Psychiatric: Reports: No Symptoms Neurological: Reports: No Symptoms Hematologic/Lymphatic: Reports: No Symptoms Immunologic: Reports: No Symptoms Review of Systems Comment:: patient reports he drinks around a pint of fireball for 3-4 straight days and stops. Reports last week was 3 days ago. Denies any current withdrawal symptoms. Exam - Exam Exam: See Below - Vital Signs Vital Signs: Last Vital Signs Temp 97.5 F 06/15/17 20:00 Pulse 85 06/15/17 23:00 Resp 20 06/15/17 20:00 BP 103/76 06/15/17 23:00 Pulse Ox 97 06/15/17 20:00 Weight: 223 lb - Exam Quality Assessment: DVT Prophylaxis General: Alert, Oriented, Cooperative. No: Mild Distress HEENT: Conjunctiva Clear, EACs Clear, EOMI, Hearing Intact, Mucosa Moist & [place] , Nares Patent, Normal Nasal Septum, Posterior Pharynx Clear, PERRLA Neck: Supple, Trachea Midline. No: Carotid Bruit, JVD Lungs: Clear to Auscultation, Normal Respiratory Effort Cardiovascular: Irregular Rhythm (a flutter rate of 90-115) GI/Abdominal Exam: Normal Bowel Sounds, Soft, Non-Tender, No Organomegaly, No Distention, No Abnormal Bruit, No Mass, Pelvis Stable (Male) Exam: Deferred Rectal (Males) Exam: Deferred Back Exam: Normal Inspection, Full Range of Motion Extremities: Normal Inspection, Normal Range of Motion, Non-Tender, No Pedal Edema, Normal Capillary Refill Peripheral Pulses: 2+: Radial (L), Radial (R), Posterior Tibial (L), Posterior Tibial (R), Dorsalis Pedis (L), Dorsalis Pedis (R) Skin: Warm, Dry, Intact Neurological: Cranial Nerves Intact (grossly) Neuro Extensive - Mental Status: Alert, Oriented x3, Normal Mood/Affect, Normal Cognition Neuro Extensive - Motor, Sensory, Reflexes: CN II-XII Intact (grossly), Normal Gait Psychiatric: Alert, Normal Affect, Normal Mood - Patient Data Result Diagrams: 06/15/17 13:01 06/15/17 13:01 *Q Meaningful Use (ADM) - VTE *Q VTE Criteria *Q: - Stroke *Q Stroke Criteria *Q: - AMI *Q AMI Criteria *Q: - Problem List (1) Atrial fibrillation with rapid ventricular response SNOMED Code(s): 505435933647417 ICD Code: I48.91 - UNSPECIFIED ATRIAL FIBRILLATION Status: Acute Priority : High Current Visit: Yes (2) Alcohol abuse SNOMED Code(s): 96646967 ICD Code: F10.10 - ALCOHOL ABUSE, UNCOMPLICATED Status: Acute Priority: Medium Current Visit: Yes (3) Atrial flutter SNOMED Code(s): 2537672 ICD Code: I48.92 - UNSPECIFIED ATRIAL FLUTTER Status: Acute Priority: High Current Visit: Yes (4) CHF (congestive heart failure) SNOMED Code(s): 21407978 ICD Code: I50.9 - HEART FAILURE, UNSPECIFIED Status: Acute Priority: High Current Visit: Yes Qualifiers: Congestive heart failure type: unspecified congestive heart failure type Congestive heart failure chronicity: chronic Qualified Code(s): I50.9 - Heart failure, unspecified (5) Gout attack SNOMED Code(s): 92543509 ICD Code: M10.9 - GOUT, UNSPECIFIED Status: Acute Priority: High Current Visit: Yes Qualifiers: Gout site: multiple sites Gout etiology: unspecified cause Qualified Code (s): M10.9 - Gout, unspecified (6) Anxiety SNOMED Code(s): 97051956 ICD Code: F41.9 - ANXIETY DISORDER, UNSPECIFIED Status: Acute Priority: Medium Current Visit: Yes (7) Incidental lung nodule, > 3mm and < 8mm SNOMED Code(s): 215084549 ICD Code: R91.1 - SOLITARY PULMONARY NODULE Status: Acute Priority: Low Current Visit: Yes Problem Details: 7 mm nodule within right upper chest on 06/15/17. Follow-up chest CT recommended Dec, 2017. Problem List Initiated/Reviewed/Updated: Yes Orders Last 24hrs: Active Orders 24 hr Category Date Time Status Ambulate [RC] PER UNIT ROUTINE Care 06/15/17 21:00 Active Antiembolic Devices [RC] QSHIFT Care 06/15/17 21:02 Active Cardiac Monitoring [RC] CONTINUOUS Care 06/15/17 21:00 Active Height and Weight [RC] 04 Care 06/15/17 20:55 Active Intake and Output [RC] 04,16 Care 06/15/17 21:00 Active Oxygen Therapy [RC] PRN Care 06/15/17 20:55 Active RT Aerosol Therapy [RC] ASDIRECTED Care 06/15/17 21:02 Active Up With Assistance [RC] QSHIFT Care 06/15/17 20:55 Active VTE/DVT Education [RC] PER UNIT ROUTINE Care 06/15/17 20:55 Active Consult to Case Management [CONS] Routine Cons 06/15/17 20:55 Active Consult to Courier [CONS] Routine Cons 06/15/17 20:55 Active OT Evaluation and Treatment [CONS] Routine Cons 06/15/17 20:55 Active PT Evaluation and Treatment [CONS] Routine Cons 06/15/17 20:55 Active 2 Gram Sodium Diet [DIET] Diet 06/15/17 Breakfast Active BASIC METABOLIC PANEL,BMP [CHEM] AM Lab 06/16/17 05:11 Ordered BASIC METABOLIC PANEL,BMP [CHEM] AM Lab 06/17/17 05:11 Ordered BASIC METABOLIC PANEL,BMP [CHEM] AM Lab 06/18/17 05:11 Ordered BASIC METABOLIC PANEL,BMP [CHEM] AM Lab 06/19/17 05:11 Ordered CBC WITH AUTO DIFF [HEME] AM Lab 06/16/17 05:11 Ordered CBC WITH AUTO DIFF [HEME] AM Lab 06/17/17 05:11 Ordered CBC WITH AUTO DIFF [HEME] AM Lab 06/18/17 05:11 Ordered CBC WITH AUTO DIFF [HEME] AM Lab 06/19/17 05:11 Ordered INR,PT,PROTHROMBIN TIME [COAG] AM Lab 06/16/17 05:11 Ordered INR,PT,PROTHROMBIN TIME [COAG] AM Lab 06/17/17 05:11 Ordered INR,PT,PROTHROMBIN TIME [COAG] AM Lab 06/18/17 05:11 Ordered INR,PT,PROTHROMBIN TIME [COAG] AM Lab 06/19/17 05:11 Ordered MAGNESIUM [CHEM] AM Lab 06/16/17 05:11 Ordered MAGNESIUM [CHEM] AM Lab 06/17/17 05:11 Ordered MAGNESIUM [CHEM] AM Lab 06/18/17 05:11 Ordered MAGNESIUM [CHEM] AM Lab 06/19/17 05:11 Ordered PRO B-TYPE NATRIUR PEPT,BNPPRO [CHEM] DAILY Lab 06/16/17 05:11 Ordered PRO B-TYPE NATRIUR PEPT,BNPPRO [CHEM] DAILY Lab 06/17/17 05:11 Ordered PRO B-TYPE NATRIUR PEPT,BNPPRO [CHEM] DAILY Lab 06/18/17 05:11 Ordered PRO B-TYPE NATRIUR PEPT,BNPPRO [CHEM] DAILY Lab 06/19/17 05:11 Ordered Acetaminophen/oxyCODONE [Percocet 325-5 MG] Med 06/15/17 21:02 Active 1 - 2 tab PO Q6H PRN Albuterol/Ipratropium [DuoNeb 3.0-0.5 MG/3 ML] Med 06/15/17 20:55 Active 3 ml NEB Q4H PRN Allopurinol [Zyloprim] Med 06/15/17 21:00 Active 100 mg PO DAILY Diltiazem [Cardizem CD] Med 06/16/17 09:00 Active 240 mg PO DAILY Metoprolol Tartrate [Lopressor] Med 06/15/17 21:45 Active 50 mg PO BID Naproxen [Naprosyn] Med 06/15/17 21:00 Active 500 mg PO Q12HR Temazepam [Restoril] Med 06/15/17 20:55 Active 15 mg PO BEDTIME PRN Warfarin Pharmacy to Dose [Pharmacy to Dose - Warfarin] Med 06/15/17 21:15 Pending 1 dose .XX ASDIRECTED LICO Hose [Antiembolic Hose] [OM.PC] Routine Oth 06/15/17 21:34 Ordered Resuscitation Status Routine Resus Stat 06/15/17 20:55 Ordered Medication Orders Albuterol/Ipratropium (Duoneb 3.0-0.5 Mg/3 Ml) 3 ml NEB Q4H PRN PRN Reason: Shortness Of Breath/wheezing Allopurinol (Zyloprim) 100 mg PO DAILY JESSICA Last Admin: 06/15/17 21:46 Dose: 100 mg Diltiazem HCl (Cardizem Cd) 240 mg PO DAILY JESSICA Diltiazem HCl 125 mg/ Sodium (Chloride) 125 mls @ 5 mls/hr IV TITRATE JESSICA; 5 MG /HR PRN Reason: Protocol Last Titration: 06/15/17 23:06 Dose: 4 mg/hr, 4 mls/hr Titration: 06/15/17 20:05 Dose: 6 mg/hr, 6 mls/hr Titration: 06/15/17 16:14 Dose: 4 mg/hr, 4 mls/hr Admin: 06/15/17 14:44 Dose: 3 mg/hr, 3 mls/hr Metoprolol Tartrate (Lopressor) 50 mg PO BID [facility] Last Admin: 06/15/17 21:56 Dose: 50 mg Naproxen (Naprosyn) 500 mg PO Q12HR [facility] Last Admin: 06/15/17 21:56 Dose: 500 mg Oxycodone/Acetaminophen (Percocet 325-5 Mg) 1 - 2 tab PO Q6H PRN PRN Reason: Pain Last Admin: 06/15/17 21:44 Dose: 1 tab Temazepam (Restoril) 15 mg PO BEDTIME PRN PRN Reason: Sleep Last Admin: 06/15/17 21:47 Dose: 15 mg Warfarin Sodium (Pharmacy To Dose - Warfarin) 1 dose .XX ASDIRECTED [facility] Assessment/Plan Comment:: I/P Acute: Afib/flutter with RVR -Rate in upper 120s in ED -Given Cardizem IVP and started on Cardizem IV drip per protocol - continue -Supposed to be taking metoprolol, warfarin, and cardizem but quit taking due to cost -Last saw cardiology 2 years prior -Will order echo for tomorrow -Troponin negative -Vital signs stable -Lovenox 100mg for anticoagulation -Warfarin 10 mg - bridge to response; pharmacy to monitor and adjust dosage -Daily PT/INR -[id number] score - 2 (2.2% stroke risk per year) -HAS-BLED score - 2 (moderate risk of major bleeding); 3 after anti- coagulation (high risk of major bleeding). Heart failure -Acute on chronic -Reportedly gained 5-10 lbs over last maurice -Denies any edema and none noted on exam -Denies SOB -BNP 6192 in ED -Given 60mg Lasix in ED -Will order bumex 0.5mg BID monitoring for effect -Echo obtained 08/17/16 interpreted as: -left ventricular ejection fraction by visual estimation is 15%. -Left ventricular internal cavity size is normal. -Elevated mean arterial pressure. -There is moderate biatrial dilation. -Mild mitral regurgitation. -Right ventricular systolic pressure is mildly elevated at 42.0 mmHg. -Inferior vena cava is dilated with respiratory size variation less than 50%. -Echo ordered in AM Alcohol abuse -Reportedly drinks nearly a pint of fireball for 3-4 days and then stops. -States last drink was approximately 3 days ago -Denies any withdrawl symptoms. -2mg lorazepam ordered for seizure precautions -Discussed concern over withdrawl symptoms with ICU nurses. They deny any current concerns/symptoms. -Liver enzymes WNL -Will hold off CIWAA protocol for now -Consider [facility]/licensed addiction counselor consult -Consider supplementation Elevated D-Dimer -0.82 in ED -Reports SOB in ED -Negative CTA Anxiety -Very anxious about health per nursing reports -Pt. states he was supposed to be cardioverted multiple times but refused due to fear of procedure -Noncompliant for healthcare -0.5mg ativan ordered PRN for anxiety Gout attack -hx/o prior gout attacks and pseudogout attacks -Uric acid 10.2 in ED -C/o left great toe and right pinky finger pain -Redness/swelling noted in physical exam -Took indomethacin from friend prior to arrival for attack -Naproxen 500 mg every 12 ordered -Allopurinol 100 mg daily ordered Incidental Lung nodule -7mm nodule within right upper lung -Dr. Rajan recommends follow-up chest CT within 6 months (December 2017) which can be preformed without contrast. Chronic: As above Plan: Admit to ICU Continuous telemetry CM/SW for discharge planning PT/OT Routine AM labs Home medications as ordered Other orders as indicated above Patchy parenchymal density on CTA within left upper lung possibly pneumonia, monitor for worsening symptoms. Code Status: Full Code. He does not have a PCP and should establish locally.
[2017-06-16] MEDS ORDERED: LORazepam 2 MG/ML MDV IVPUSH PRN (01:31)
[2017-06-16] MEDS: Bumetanide 1 MG/4 ML MDV IVPUSH SCH ×2 (08:50→20:39)
[2017-06-16] MEDS: Naproxen 500 MG Tab PO SCH ×2 (08:51→20:38)
[2017-06-16] MEDS: Metoprolol Tartrate 50 MG Tab PO SCH ×2 (08:51→20:38)
[2017-06-16] MEDS: Allopurinol 100 MG Tab PO SCH (08:52)
[2017-06-16] MEDS ORDERED: Diltiazem 120 MG Cap.CD PO SCH (09:00)
[2017-06-16] MEDS ORDERED: Metoprolol Tartrate 50 MG Tab PO SCH (09:00)
[2017-06-16] MEDS ORDERED: Aspirin 325 MG Tab.EC PO SCH (09:00)
[2017-06-16] MEDS ORDERED: Benzocaine/Cetylpyridinium/Menthol Lozenge MUCMEM PRN (11:16)
--- NOTE | 2017-06-16 12:21 | PCM.PN ---
<Joanie Martinez - Last Filed: 06/16/17 12:16> - General Info Date of Service: 06/16/17 Admission Dx/Problem (Free Text): A-fib with RVR Functional Status: Reports: Pain Controlled, Tolerating Diet, Ambulating, Urinating - Review of Systems General: Reports: Fatigue HEENT: Reports: No Symptoms Pulmonary: Reports: Cough Cardiovascular: Reports: No Symptoms Gastrointestinal: Reports: No Symptoms Genitourinary: Reports: No Symptoms Musculoskeletal: Reports: Joint Pain (Gout) Skin: Reports: No Symptoms Neurological: Reports: Dizziness Psychiatric: Reports: Other (Has remorse about his drinking. Feels guilty about it) - Patient Data Vitals - Most Recent: Last Vital Signs Temp 97.0 F 06/16/17 12:00 Pulse 98 06/16/17 12:00 Resp 18 06/16/17 12:00 BP 161/87 H 06/16/17 12:00 Pulse Ox 97 06/16/17 12:00 Weight - Most Recent: 102.257 kg I&O - Last 24 Hours: Intake & Output 06/15/17 06/16/17 06/16/17 22:59 06:59 14:59 Intake Total 600 646 340 Output Total 640 250 Balance -40 396 340 Lab Results Last 24 Hours: Laboratory Results - last 24 hr 06/16/17 06/16/17 06/16/17 Range/Units 05:30 05:30 05:30 WBC 8.73 (4.23-9.07) K/mm3 RBC 5.98 (4.63-6.08) M/mm3 Hgb 18.6 H (13.7-17.5) gm/L Hct 52.5 H (40.1-51.0) % MCV 87.8 (79.0-92.2) fl MCH 31.1 (25.7-32.2) pg MCHC 35.4 (32.2-35.5) g/dl RDW Std Deviation 43.3 (35.1-43.9) fL Plt Count 266 (163-337) K/mm3 MPV 10.2 (9.4-12.3) fl Neut % (Auto) 84.3 H (34.0-67.9) % Lymph % (Auto) 14.3 L (21.8-53.1) % Todd % (Auto) 1.0 L (5.3-12.2) % Eos % (Auto) 0 L (0.8-7.0) Baso % (Auto) 0.1 (0.1-1.2) % Neut # (Auto) 7.35 H (1.78-5.38) K/mm3 Lymph # (Auto) 1.25 L (1.32-3.57) K/mm3 Todd # (Auto) 0.09 L (0.30-0.82) K/mm3 Eos # (Auto) 0.00 L (0.04-0.54) K/mm3 Baso # (Auto) 0.01 (0.01-0.08) K/mm3 PT 12.1 (8.0-13.0) SECONDS INR 1.10 Sodium 136 (136-145) mEq/L Potassium 4.2 (3.5-5.1) mEq/L Chloride 100 (98-107) mEq/L Carbon Dioxide 24 (21-32) mEq/L Anion Gap 16.2 H (5-15) BUN 19 H (7-18) mg/dL Creatinine 1.5 H (0.7-1.3) mg/dL Est Cr Clr Drug Dosing 56.48 mL/min Estimated GFR (MDRD) 48 (>60) mL/min BUN/Creatinine Ratio 12.7 L (14-18) Glucose 147 H (74-106) mg/dL Calcium 9.7 (8.5-10.1) mg/dL Magnesium 2.5 H (1.8-2.4) mg/dl NT-Pro-B Natriuret Pep 1790 H (0-125) pg/mL Kai Results Last 24 Hours: Microbiology 06/16/17 11:26 Group A Streptococcus Rapid Screen - Final Throat NEGATIVE STREP A SCREEN Med Orders - Current: Current Medications Albuterol/Ipratropium (Duoneb 3.0-0.5 Mg/3 Ml) 3 ml NEB Q4H PRN PRN Reason: Shortness Of Breath/wheezing Allopurinol (Zyloprim) 100 mg PO DAILY JESSICA Last Admin: 06/16/17 08:52 Dose: 100 mg Benzocaine/Menthol (Cepacol Sore Throat) 1 lozenge MUCMEM Q8HR PRN PRN Reason: Sore Throat Last Admin: 06/16/17 11:56 Dose: 1 lozenge Bumetanide (Bumex) 0.5 mg IVPUSH BID [facility] Last Admin: 06/16/17 08:50 Dose: 0.5 mg Diltiazem HCl (Cardizem Cd) 240 mg PO DAILY [facility] Last Admin: 06/16/17 08:48 Dose: 240 mg Diltiazem HCl 125 mg/ Sodium (Chloride) 125 mls @ 5 mls/hr IV TITRATE JESSICA; 5 MG /HR PRN Reason: Protocol Last Titration: 06/16/17 09:56 Dose: 0 mg/hr, 0 mls/hr Lorazepam (Ativan) 0.5 mg PO Q6H PRN PRN Reason: anxiety Lorazepam (Ativan) 2 mg IVPUSH Q4H PRN PRN Reason: Seizures Magnesium Sulfate (Pharmacy To Dose - Magnesium Replacement) 1 dose .XX ASDIRECTED [facility] Metoprolol Tartrate (Lopressor) 50 mg PO BID [facility] Last Admin: 06/16/17 08:51 Dose: 50 mg Naproxen (Naprosyn) 500 mg PO Q12HR [facility] Last Admin: 06/16/17 08:51 Dose: 500 mg Oxycodone/Acetaminophen (Percocet 325-5 Mg) 1 - 2 tab PO Q6H PRN PRN Reason: Pain Last Admin: 06/15/17 21:44 Dose: 1 tab Potassium Chloride (Pharmacy To Dose - Potassium Replacement) 1 dose .XX ASDIRECTED [facility] Temazepam (Restoril) 15 mg PO BEDTIME PRN PRN Reason: Sleep Last Admin: 06/15/17 21:47 Dose: 15 mg Warfarin Sodium (Pharmacy To Dose - Warfarin) 1 dose .XX ASDIRECTED [facility] Discontinued Medications Aspirin (Ecotrin) 325 mg PO DAILY [facility] Diltiazem HCl (Diltiazem) 15 mg IVPUSH NOW ONE Stop: 06/15/17 13:17 Last Admin: 06/15/17 13:34 Dose: 15 mg Enoxaparin Sodium (Lovenox) 100 mg SUBCUT ONETIME ONE Stop: 06/15/17 21:06 Last Admin: 06/15/17 21:47 Dose: 100 mg Furosemide (Lasix) 40 mg IVPUSH NOW ONE Stop: 06/15/17 15:31 Last Admin: 06/15/17 16:08 Dose: 40 mg Magnesium Sulfate 2 gm/ Premix 50 mls @ 25 mls/hr IV ONETIME ONE Stop: 06/15/17 15:15 Last Admin: 06/15/17 13:37 Dose: 25 mls/hr Sodium Chloride (Normal Saline) 1,000 mls @ 75 mls/hr IV ONETIME ONE Stop: 06/16/17 02:36 Last Admin: 06/15/17 13:32 Dose: 75 mls/hr Sodium Chloride (Normal Saline) 100 mls @ 60 mls/hr IV ASDIRECTED [facility] Last Admin: 06/15/17 15:30 Dose: 60 mls/hr Influenza Virus Vaccine (Pharmacy To Dose - Influenza Vaccine) 1 each IM ONETIME ONE Stop: 06/15/17 18:38 Influenza Virus Vaccine (Flulaval Quad [id number]) 60 mcg IM .ONCE ONE Stop: 06/15/17 18:46 Iopamidol (Isovue-370 (76%)) 100 ml IVPUSH ONETIME ONE Stop: 06/15/17 15:18 Last Admin: 06/15/17 15:30 Dose: 100 ml Lorazepam (Ativan) 0.5 mg IVPUSH ONETIME ONE Stop: 06/15/17 13:17 Last Admin: 06/15/17 13:33 Dose: 0.5 mg Methylprednisolone Sodium Succinate (Solu-Medrol) 125 mg IVPUSH ONETIME ONE Stop: 06/15/17 20:59 Last Admin: 06/15/17 21:47 Dose: 125 mg Sodium Chloride (Saline Flush) 10 ml FLUSH ONETIME ONE Stop: 06/15/17 15:18 Last Admin: 06/15/17 15:30 Dose: 10 ml Warfarin Sodium (Coumadin) 10 mg PO ONETIME ONE Stop: 06/15/17 21:05 Last Admin: 06/15/17 21:46 Dose: 10 mg - Exam General: Alert, Oriented, Cooperative, No Acute Distress HEENT: Pupils Equal, Pupils Reactive, EOMI, Mucous Membr. Moist/[place] Neck: Supple, Trachea Midline Lungs: Clear to Auscultation, Normal Respiratory Effort Cardiovascular: Irregular Rhythm (Atrial flutter), Tachycardia GI/Abdominal Exam: Normal Bowel Sounds, Soft, Non-Tender, No Organomegaly, No Distention, No Abnormal Bruit, No Mass, Pelvis Stable (Male) Exam: Deferred Back Exam: Normal Inspection, Full Range of Motion Extremities: Normal Inspection, Normal Range of Motion, Non-Tender, No Pedal Edema, Normal Capillary Refill Skin: Warm, Dry, Intact Neurological: No New Focal Deficit Psy/Mental Status: Alert, Normal Affect, Normal Mood - Assessment Assessment:: Patient is a 57 yo male who was admitted for atrial flutter. The patient says he is feeling much better from the previous day. He states that he is starting to develop a tickle in his throat which is causing him to cough and interrupt his sleep. He does not report any chest pain. He says that he is used to his irregular heart rhythm that he does not notice it anymore. He also reports that his gout is improved and overall is feeling much better. His main concern while talking to me, is that he feels guilty about his drinking and the outcome it has on his health. Physical exam showed no cervical or occipital adenopathy. Lung auscultation was unremarkable. Cardiac exam revealed an irregular rhythm and tachycardia. The gout in his left big toe and right pinky finger look swollen with some erythema, but he patient says it is improving. Rest of focus exam is unremarkable. - Plan Plan:: I/P Acute: Afib/flutter with RVR -Rate in upper 120s in ED -Given Cardizem IVP and started on Cardizem IV drip per protocol - continue -Supposed to be taking metoprolol, warfarin, and cardizem but quit taking due to cost -Last saw cardiology 2 years prior -Will order echo for tomorrow -Troponin negative -Vital signs stable -Lovenox 100mg for anticoagulation -Warfarin 10 mg - bridge to response; pharmacy to monitor and adjust dosage -Daily PT/INR -[id number] score - 2 (2.2% stroke risk per year) -HAS-BLED score - 2 (moderate risk of major bleeding); 3 after anti- coagulation (high risk of major bleeding). Heart failure -Acute on chronic -Reportedly gained 5-10 lbs over last maurice -Denies any edema and none noted on exam -Denies SOB -BNP 6192 in ED--> Today is 1270 -Given 60mg Lasix in ED -Will order bumex 0.5mg BID monitoring for effect -Echo obtained 08/17/16 interpreted as: -left ventricular ejection fraction by visual estimation is 15%. -Left ventricular internal cavity size is normal. -Elevated mean arterial pressure. -There is moderate biatrial dilation. -Mild mitral regurgitation. -Right ventricular systolic pressure is mildly elevated at 42.0 mmHg. -Inferior vena cava is dilated with respiratory size variation less than 50%. -Waiting on second echo report Alcohol abuse -Reportedly drinks nearly a pint of fireball for 3-4 days and then stops. -States last drink was approximately 3 days ago -Denies any withdrawl symptoms. -2mg lorazepam ordered for seizure precautions -Discussed concern over withdrawl symptoms with ICU nurses. They deny any current concerns/symptoms. -Liver enzymes WNL -Will hold off CIWAA protocol for now -Consider [facility]/licensed addiction counselor consult -Consider supplementation Elevated D-Dimer -0.82 in ED -Reports SOB in ED -Negative CTA Anxiety -Very anxious about health per nursing reports -Pt. states he was supposed to be cardioverted multiple times but refused due to fear of procedure -Noncompliant for healthcare -0.5mg ativan ordered PRN for anxiety Gout attack -hx/o prior gout attacks and pseudogout attacks -Uric acid 10.2 in ED -C/o left great toe and right pinky finger pain. Says its improving -Redness/swelling noted in physical exam -Took indomethacin from friend prior to arrival for attack -Naproxen 500 mg every 12 ordered -Allopurinol 100 mg daily ordered Incidental Lung nodule -7mm nodule within right upper lung -Dr. Rajan recommends follow-up chest CT within 6 months (December 2017) which can be preformed without contrast. Chronic: As above Plan: Move to med/surg floor Continuous telemetry CM/SW for discharge planning PT/OT Routine AM labs Home medications as ordered Other orders as indicated above Code Status: Full Code. He does not have a PCP and should establish locally. <Terrance Marin T - Last Filed: 06/16/17 23:22> - General Info Subjective Update: Follow Up Functional Status: Reports: Pain Controlled, Tolerating Diet, Ambulating, Urinating. Denies: New Symptoms - Review of Systems General: Reports: Fatigue. Denies: Fever, Chills HEENT: Reports: No Symptoms Pulmonary: Reports: Cough. Denies: Shortness of Breath Cardiovascular: Denies: Palpitations, Dyspnea on Exertion, Lightheadedness Gastrointestinal: Denies: Abdominal Pain, Nausea, Vomiting Genitourinary: Reports: No Symptoms Musculoskeletal: Reports: Joint Pain Skin: Reports: No Symptoms Neurological: Denies: Confusion, Dizziness, Difficulty Walking, Weakness, Gait Disturbance Psychiatric: Reports: Other. Denies: Depression, Anxiety, Agitation, Hallucinations Systems Review Comment:: No significant overnight or acute issues. He slept good and seems to be better. He complaints of toe pain. He is afebrile w/o leukocytosis. - Patient Data Vitals - Most Recent: Last Vital Signs Temp 36.7 C 06/16/17 19:47 Pulse 93 06/16/17 20:38 Resp 20 06/16/17 19:47 BP 152/99 H 06/16/17 20:38 Pulse Ox 95 06/16/17 19:47 I&O - Last 24 Hours: Intake & Output 06/16/17 06/16/17 06/17/17 14:59 22:59 06:59 Intake Total 340 1374 Output Total 300 Balance 340 1074 Lab Results Last 24 Hours: Laboratory Results - last 24 hr 06/16/17 06/16/17 06/16/17 Range/Units 05:30 05:30 05:30 WBC 8.73 (4.23-9.07) K/mm3 RBC 5.98 (4.63-6.08) M/mm3 Hgb 18.6 H (13.7-17.5) gm/L Hct 52.5 H (40.1-51.0) % MCV 87.8 (79.0-92.2) fl MCH 31.1 (25.7-32.2) pg MCHC 35.4 (32.2-35.5) g/dl RDW Std Deviation 43.3 (35.1-43.9) fL Plt Count 266 (163-337) K/mm3 MPV 10.2 (9.4-12.3) fl Neut % (Auto) 84.3 H (34.0-67.9) % Lymph % (Auto) 14.3 L (21.8-53.1) % Todd % (Auto) 1.0 L (5.3-12.2) % Eos % (Auto) 0 L (0.8-7.0) Baso % (Auto) 0.1 (0.1-1.2) % Neut # (Auto) 7.35 H (1.78-5.38) K/mm3 Lymph # (Auto) 1.25 L (1.32-3.57) K/mm3 Todd # (Auto) 0.09 L (0.30-0.82) K/mm3 Eos # (Auto) 0.00 L (0.04-0.54) K/mm3 Baso # (Auto) 0.01 (0.01-0.08) K/mm3 PT 12.1 (8.0-13.0) SECONDS INR 1.10 Sodium 136 (136-145) mEq/L Potassium 4.2 (3.5-5.1) mEq/L Chloride 100 (98-107) mEq/L Carbon Dioxide 24 (21-32) mEq/L Anion Gap 16.2 H (5-15) BUN 19 H (7-18) mg/dL Creatinine 1.5 H (0.7-1.3) mg/dL Est Cr Clr Drug Dosing 56.48 mL/min Estimated GFR (MDRD) 48 (>60) mL/min BUN/Creatinine Ratio 12.7 L (14-18) Glucose 147 H (74-106) mg/dL Calcium 9.7 (8.5-10.1) mg/dL Magnesium 2.5 H (1.8-2.4) mg/dl NT-Pro-B Natriuret Pep 1790 H (0-125) pg/mL Kai Results Last 24 Hours: Microbiology 06/16/17 11:26 Group A Streptococcus Rapid Screen - Final Throat NEGATIVE STREP A SCREEN Med Orders - Current: Current Medications Albuterol/Ipratropium (Duoneb 3.0-0.5 Mg/3 Ml) 3 ml NEB Q4H PRN PRN Reason: Shortness Of Breath/wheezing Allopurinol (Zyloprim) 100 mg PO DAILY [facility] Last Admin: 06/16/17 08:52 Dose: 100 mg Benzocaine/Menthol (Cepacol Sore Throat) 1 lozenge MUCMEM Q8HR PRN PRN Reason: Sore Throat Last Admin: 06/16/17 11:56 Dose: 1 lozenge Bumetanide (Bumex) 0.5 mg IVPUSH BID [facility] Last Admin: 06/16/17 20:39 Dose: 0.5 mg Diltiazem HCl (Dilacor Xr) 240 mg PO DAILY [facility] Enoxaparin Sodium (Lovenox) 100 mg SUBCUT DAILY [facility] Last Admin: 06/16/17 20:37 Dose: 100 mg Diltiazem HCl 125 mg/ Sodium (Chloride) 125 mls @ 5 mls/hr IV TITRATE JESSICA; 5 MG /HR PRN Reason: Protocol Last Titration: 06/16/17 09:56 Dose: 0 mg/hr, 0 mls/hr Lorazepam (Ativan) 0.5 mg PO Q6H PRN PRN Reason: anxiety Last Admin: 06/16/17 17:32 Dose: 0.5 mg Lorazepam (Ativan) 2 mg IVPUSH Q4H PRN PRN Reason: Seizures Magnesium Sulfate (Pharmacy To Dose - Magnesium Replacement) 1 dose .XX ASDIRECTED [facility] Metoprolol Tartrate (Lopressor) 50 mg PO BID [facility] Last Admin: 06/16/17 20:38 Dose: 50 mg Metoprolol Tartrate (Lopressor) 5 mg IVPUSH Q4H PRN PRN Reason: Tachycardia Naproxen (Naprosyn) 500 mg PO Q12HR [facility] Last Admin: 06/16/17 20:38 Dose: 500 mg Non-Formulary Medication (Acetaminophen) 500 mg PO ASDIRECTED PRN PRN Reason: gout flareups Non-Formulary Medication (Ibuprofen [Ibuprofen]) 200 mg PO ASDIRECTED PRN PRN Reason: gout flareups Oxycodone/Acetaminophen (Percocet 325-5 Mg) 1 - 2 tab PO Q6H PRN PRN Reason: Pain Last Admin: 06/15/17 21:44 Dose: 1 tab Potassium Chloride (Pharmacy To Dose - Potassium Replacement) 1 dose .XX ASDIRECTED [facility] Temazepam (Restoril) 15 mg PO BEDTIME PRN PRN Reason: Sleep Last Admin: 06/15/17 21:47 Dose: 15 mg Warfarin Sodium (Pharmacy To Dose - Warfarin) 1 dose .XX ASDIRECTED [facility] Discontinued Medications Aspirin (Ecotrin) 325 mg PO DAILY [facility] Diltiazem HCl (Diltiazem) 15 mg IVPUSH NOW ONE Stop: 06/15/17 13:17 Last Admin: 06/15/17 13:34 Dose: 15 mg Diltiazem HCl (Cardizem Cd) 240 mg PO DAILY JESSICA Last Admin: 06/16/17 08:48 Dose: 240 mg Diltiazem HCl (Cardizem Cd) 360 mg PO DAILY [facility] Enoxaparin Sodium (Lovenox) 100 mg SUBCUT ONETIME ONE Stop: 06/15/17 21:06 Last Admin: 06/15/17 21:47 Dose: 100 mg Enoxaparin Sodium (Lovenox) 150 mg SUBCUT BEDTIME JESSICA Furosemide (Lasix) 40 mg IVPUSH NOW ONE Stop: 06/15/17 15:31 Last Admin: 06/15/17 16:08 Dose: 40 mg Magnesium Sulfate 2 gm/ Premix 50 mls @ 25 mls/hr IV ONETIME ONE Stop: 06/15/17 15:15 Last Admin: 06/15/17 13:37 Dose: 25 mls/hr Sodium Chloride (Normal Saline) 1,000 mls @ 75 mls/hr IV ONETIME ONE Stop: 06/16/17 02:36 Last Admin: 06/15/17 13:32 Dose: 75 mls/hr Sodium Chloride (Normal Saline) 100 mls @ 60 mls/hr IV ASDIRECTED JESSICA Last Admin: 06/15/17 15:30 Dose: 60 mls/hr Influenza Virus Vaccine (Pharmacy To Dose - Influenza Vaccine) 1 each IM ONETIME ONE Stop: 06/15/17 18:38 Influenza Virus Vaccine (Flulaval Quad [id number]) 60 mcg IM .ONCE ONE Stop: 06/15/17 18:46 Iopamidol (Isovue-370 (76%)) 100 ml IVPUSH ONETIME ONE Stop: 06/15/17 15:18 Last Admin: 06/15/17 15:30 Dose: 100 ml Lorazepam (Ativan) 0.5 mg IVPUSH ONETIME ONE Stop: 06/15/17 13:17 Last Admin: 06/15/17 13:33 Dose: 0.5 mg Methylprednisolone Sodium Succinate (Solu-Medrol) 125 mg IVPUSH ONETIME ONE Stop: 06/15/17 20:59 Last Admin: 06/15/17 21:47 Dose: 125 mg Sodium Chloride (Saline Flush) 10 ml FLUSH ONETIME ONE Stop: 06/15/17 15:18 Last Admin: 06/15/17 15:30 Dose: 10 ml Warfarin Sodium (Coumadin) 10 mg PO ONETIME ONE Stop: 06/15/17 21:05 Last Admin: 06/15/17 21:46 Dose: 10 mg Warfarin Sodium (Coumadin) 7.5 mg PO ONETIME ONE Stop: 06/16/17 18:01 Last Admin: 06/16/17 17:28 Dose: 7.5 mg - Exam General: Alert, Oriented, Cooperative, No Acute Distress HEENT: Pupils Equal, Pupils Reactive, EOMI, Mucous Membr. Moist/[place] Neck: Supple, Trachea Midline, No JVD, No Thyromegaly Lungs: Clear to Auscultation, Normal Respiratory Effort Cardiovascular: Irregular Rhythm, Tachycardia GI/Abdominal Exam: Normal Bowel Sounds, Soft, Non-Tender, No Organomegaly, No Distention, No Abnormal Bruit, No Mass, Pelvis Stable (Male) Exam: Deferred Back Exam: Normal Inspection, Decreased Range of Motion Extremities: Normal Inspection, Normal Range of Motion, Non-Tender, No Pedal Edema, Normal Capillary Refill Peripheral Pulses: 2+: Dorsalis Pedis (L), Dorsalis Pedis (R) Skin: Warm, Dry, Intact Neurological: No New Focal Deficit Psy/Mental Status: Alert, Normal Affect, Normal Mood - Problem List Review Problem List Initiated/Reviewed/Updated: Yes - My Orders Last 24 Hours: My Active Orders 06/16/17 11:16 Benzocaine/Cetylpyrd/Menthol [Cepacol Sore Throat] 1 lozenge MUCMEM Q8HR PRN 06/16/17 11:26 CULTURE STREP A CONFIRMATION [RM] Routine STREP SCRN A RAPID W CULT CONF [RM] Routine 06/16/17 13:52 Consult for Substance Abuse [CONS] Routine 06/16/17 20:51 Metoprolol Tartrate [Lopressor] 5 mg IVPUSH Q4H PRN 06/16/17 20:59 Acetaminophen 500 mg PO ASDIRECTED PRN Ibuprofen [Ibuprofen] 200 mg PO ASDIRECTED PRN 06/16/17 21:03 Admission Status [Patient Status] [ADT] Routine 06/17/17 09:00 Diltiazem [Dilacor XR] 240 mg PO DAILY - Plan Plan:: I/P Acute: Afib/flutter with RVR - Rate in upper 120s in ED; HR now in the teens - Given Cardizem IVP and started on Cardizem IV drip per protocol - continue - Supposed to be taking metoprolol, warfarin, and cardizem but quit taking due to cost - Last saw cardiology 2 years prior - 2D echo completed - Continue Lovenox and Warfarin; pharmacy to monitor and adjust dosage - Daily PT/INR - [id number] score - 2 (2.2% stroke risk per year) - HAS-BLED score - 2 (moderate risk of major bleeding); 3 after anti- coagulation (high risk of major bleeding) - Titrate to come off cardizem drip - Start oral Cardizem 240 mg po daily and Metoprolol Tartrate 50 mg po BID once off drip Heart Failure with Reduced EF - Acute on chronic - Reportedly gained 5-10 lbs over last maurice - Denies any edema and none noted on exam - Denies SOB - BNP 6192 in ED--> Today is 1270 - Given 60mg Lasix in ED - Lasix 20 mg po daily and salt restriction - Echo obtained 08/17/16 interpreted as: - left ventricular ejection fraction by visual estimation is 15%. - Left ventricular internal cavity size is normal. - Elevated mean arterial pressure. - There is moderate biatrial dilation. - Mild mitral regurgitation. - Right ventricular systolic pressure is mildly elevated at 42.0 mmHg. - Inferior vena cava is dilated with respiratory size variation less than 50%. - Repeat echo completed; waiting on report Alcohol Abuse - Has hx/o chronic alcohol use - Reportedly drinks nearly a pint of fireball for 3-4 days and then stops. - States last drink was approximately 3 days ago - Denies any withdrawal symptoms. - 2mg lorazepam ordered for seizure precautions - Liver enzymes WNL - Will hold off CIWAA protocol for now - counselor consult - Consider supplementation Elevated D-Dimer - 0.82 in ED - Reports SOB in ED - Negative CTA Anxiety, Stable - Very anxious about health per nursing reports - Pt. states he was supposed to be cardioverted multiple times but refused due to fear of procedure - Noncompliant for healthcare - 0.5mg ativan ordered PRN for anxiety Gout Attack - Hx/o prior gout attacks and pseudogout attacks - Uric acid 10.2 in ED - C/o left great toe and right pinky finger pain. Says its improving - Redness/swelling noted in physical exam - Took indomethacin from friend prior to arrival for attack - Received Solumderol 125 IVP x1 - Continue Naproxen 500 mg BID and Allopurinol 100 mg daily - Gout Diet Incidental Lung nodule - 7mm nodule within right upper lung - Dr. Rajan recommends follow-up chest CT within 6 months (December 2017) which can be preformed without contrast. - PCP to monitor Chronic: As above Plan: He is clinically much better today Transfer to Med-Surg with Tele once off cardize drip CM/SW for discharge planning Continue PT/OT Routine AM labs Other orders as indicated above Code Status: Full Code. He does not have a PCP and should establish locally. Possible d/c in AM
[2017-06-16] MEDS: LORazepam 0.5 MG Tab PO PRN (17:32)
[2017-06-16] MEDS ORDERED: Warfarin 7.5 MG Tab PO ONE (18:00)
[2017-06-16] MEDS: Enoxaparin 100 MG/1 ML Syringe SUBCUT SCH (20:37)
[2017-06-16] MEDS ORDERED: Metoprolol Tartrate 5 MG/5 ML SDV IVPUSH PRN (20:51)
[2017-06-16] MEDS ORDERED: Acetaminophen 325 MG Tab PO PRN (20:59)
[2017-06-16] MEDS ORDERED: IBUPROFEN 200 MG PO PRN (20:59)
[2017-06-16] MEDS ORDERED: Enoxaparin 150 MG/1 ML Syringe SUBCUT SCH (21:00)
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
[2017-06-17] MEDS: Bumetanide 1 MG/4 ML MDV IVPUSH SCH ×2 (08:00→21:13)
[2017-06-17] MEDS: Enoxaparin 100 MG/1 ML Syringe SUBCUT SCH (08:00)
[2017-06-17] MEDS: Naproxen 500 MG Tab PO SCH ×2 (08:01→21:14)
[2017-06-17] MEDS: Diltiazem 240 MG Cap.ER PO SCH (08:01)
[2017-06-17] MEDS: Allopurinol 100 MG Tab PO SCH (08:01)
[2017-06-17] MEDS: Metoprolol Tartrate 50 MG Tab PO SCH ×2 (08:01→21:14)
--- NOTE | 2017-06-17 08:41 | PCM.PN ---
<Joanie Martinez - Last Filed: 06/17/17 08:48> - General Info Date of Service: 06/17/17 Admission Dx/Problem (Free Text): A-fib with RVR Subjective Update: Follow Up Functional Status: Reports: Pain Controlled, Tolerating Diet, Ambulating, Urinating - Review of Systems General: Reports: No Symptoms HEENT: Reports: No Symptoms Pulmonary: Reports: Cough Cardiovascular: Reports: No Symptoms Gastrointestinal: Reports: No Symptoms Genitourinary: Reports: No Symptoms Musculoskeletal: Reports: No Symptoms Skin: Reports: No Symptoms Neurological: Reports: No Symptoms Psychiatric: Reports: No Symptoms - Patient Data Vitals - Most Recent: Last Vital Signs Temp 97.4 F 06/17/17 07:46 Pulse 89 06/17/17 08:01 Resp 16 06/17/17 07:46 BP 115/89 06/17/17 08:01 Pulse Ox 98 06/17/17 07:46 Weight - Most Recent: 100.38 kg I&O - Last 24 Hours: Intake & Output 06/16/17 06/17/17 06/17/17 22:59 06:59 14:59 Intake Total 1374 Output Total 300 600 Balance 1074 -600 Lab Results Last 24 Hours: Laboratory Results - last 24 hr 06/17/17 06/17/17 06/17/17 Range/Units 05:35 05:35 05:35 WBC 21.20 H (4.23-9.07) K/mm3 RBC 5.70 (4.63-6.08) M/mm3 Hgb 17.9 H (13.7-17.5) gm/L Hct 51.0 (40.1-51.0) % MCV 89.5 (79.0-92.2) fl MCH 31.4 (25.7-32.2) pg MCHC 35.1 (32.2-35.5) g/dl RDW Std Deviation 44.2 H (35.1-43.9) fL Plt Count 326 (163-337) K/mm3 MPV 9.7 (9.4-12.3) fl Neut % (Auto) 81.0 H (34.0-67.9) % Lymph % (Auto) 10.1 L (21.8-53.1) % [place] % (Auto) 8.4 (5.3-12.2) % Eos % (Auto) 0 L (0.8-7.0) Baso % (Auto) 0.1 (0.1-1.2) % Neut # (Auto) 17.16 H (1.78-5.38) K/mm3 Lymph # (Auto) 2.15 (1.32-3.57) K/mm3 [place] # (Auto) 1.78 H (0.30-0.82) K/mm3 Eos # (Auto) 0.00 L (0.04-0.54) K/mm3 Baso # (Auto) 0.02 (0.01-0.08) K/mm3 Manual Slide Review Abnormal smear PT 17.9 H (8.0-13.0) SECONDS INR 1.59 Sodium 137 (136-145) mEq/L Potassium 4.9 (3.5-5.1) mEq/L Chloride 102 (98-107) mEq/L Carbon Dioxide 23 (21-32) mEq/L Anion Gap 16.9 H (5-15) BUN 33 H (7-18) mg/dL Creatinine 1.5 H (0.7-1.3) mg/dL Est Cr Clr Drug Dosing 56.48 mL/min Estimated GFR (MDRD) 48 (>60) mL/min BUN/Creatinine Ratio 22.0 H (14-18) Glucose 125 H (74-106) mg/dL Calcium 9.1 (8.5-10.1) mg/dL Magnesium 2.3 (1.8-2.4) mg/dl NT-Pro-B Natriuret Pep 1518 H (0-125) pg/mL Kai Results Last 24 Hours: Microbiology 06/16/17 11:26 Quick Strep Confirmation Culture - Final Throat NEGATIVE FOR BETA STREP Group A Streptococcus Rapid Screen - Final NEGATIVE STREP A SCREEN Med Orders - Current: Current Medications Acetaminophen (Tylenol) 650 mg PO ASDIRECTED PRN PRN Reason: gout flareups Albuterol/Ipratropium (Duoneb 3.0-0.5 Mg/3 Ml) 3 ml NEB Q4H PRN PRN Reason: Shortness Of Breath/wheezing Allopurinol (Zyloprim) 100 mg PO DAILY [facility]ESS[facility] Last Admin: 06/17/17 08:01 Dose: 100 mg Benzocaine/Menthol (Cepacol Sore Throat) 1 lozenge MUCMEM Q8HR PRN PRN Reason: Sore Throat Last Admin: 06/16/17 11:56 Dose: 1 lozenge Bumetanide (Bumex) 0.5 mg IVPUSH BID [facility] Last Admin: 06/17/17 08:00 Dose: 0.5 mg Diltiazem HCl (Dilacor Xr) 240 mg PO DAILY [facility] Last Admin: 06/17/17 08:01 Dose: 240 mg Enoxaparin Sodium (Lovenox) 100 mg SUBCUT DAILY [facility] Last Admin: 06/17/17 08:00 Dose: 100 mg Diltiazem HCl 125 mg/ Sodium (Chloride) 125 mls @ 5 mls/hr IV TITRATE JESSICA; 5 MG /HR PRN Reason: Protocol Last Titration: 06/16/17 09:56 Dose: 0 mg/hr, 0 mls/hr Lorazepam (Ativan) 0.5 mg PO Q6H PRN PRN Reason: anxiety Last Admin: 06/16/17 17:32 Dose: 0.5 mg Lorazepam (Ativan) 2 mg IVPUSH Q4H PRN PRN Reason: Seizures Magnesium Sulfate (Pharmacy To Dose - Magnesium Replacement) 1 dose .XX ASDIRECTED [facility] Metoprolol Tartrate (Lopressor) 50 mg PO BID [facility] Last Admin: 06/17/17 08:01 Dose: 50 mg Metoprolol Tartrate (Lopressor) 5 mg IVPUSH Q4H PRN PRN Reason: Tachycardia Naproxen (Naprosyn) 500 mg PO Q12HR [facility] Last Admin: 06/17/17 08:01 Dose: 500 mg Non-Formulary Medication (Ibuprofen [Ibuprofen]) 200 mg PO ASDIRECTED PRN PRN Reason: gout flareups Oxycodone/Acetaminophen (Percocet 325-5 Mg) 1 - 2 tab PO Q6H PRN PRN Reason: Pain Last Admin: 06/15/17 21:44 Dose: 1 tab Potassium Chloride (Pharmacy To Dose - Potassium Replacement) 1 dose .XX ASDIRECTED [facility] Temazepam (Restoril) 15 mg PO BEDTIME PRN PRN Reason: Sleep Last Admin: 06/15/17 21:47 Dose: 15 mg Warfarin Sodium (Pharmacy To Dose - Warfarin) 1 dose .XX ASDIRECTED [facility] Warfarin Sodium (Coumadin) 7.5 mg PO ONETIME ONE Stop: 06/17/17 18:01 Discontinued Medications Aspirin (Ecotrin) 325 mg PO DAILY [facility] Diltiazem HCl (Diltiazem) 15 mg IVPUSH NOW ONE Stop: 06/15/17 13:17 Last Admin: 06/15/17 13:34 Dose: 15 mg Diltiazem HCl (Cardizem Cd) 240 mg PO DAILY [facility] Last Admin: 06/16/17 08:48 Dose: 240 mg Diltiazem HCl (Cardizem Cd) 360 mg PO DAILY [facility] Enoxaparin Sodium (Lovenox) 100 mg SUBCUT ONETIME ONE Stop: 06/15/17 21:06 Last Admin: 06/15/17 21:47 Dose: 100 mg Enoxaparin Sodium (Lovenox) 150 mg SUBCUT BEDTIME JESS[facility] Furosemide (Lasix) 40 mg IVPUSH NOW ONE Stop: 06/15/17 15:31 Last Admin: 06/15/17 16:08 Dose: 40 mg Magnesium Sulfate 2 gm/ Premix 50 mls @ 25 mls/hr IV ONETIME ONE Stop: 06/15/17 15:15 Last Admin: 06/15/17 13:37 Dose: 25 mls/hr Sodium Chloride (Normal Saline) 1,000 mls @ 75 mls/hr IV ONETIME ONE Stop: 06/16/17 02:36 Last Admin: 06/15/17 13:32 Dose: 75 mls/hr Sodium Chloride (Normal Saline) 100 mls @ 60 mls/hr IV ASDIRECTED [facility] Last Admin: 06/15/17 15:30 Dose: 60 mls/hr Influenza Virus Vaccine (Pharmacy To Dose - Influenza Vaccine) 1 each IM ONETIME ONE Stop: 06/15/17 18:38 Influenza Virus Vaccine (Flulaval Quad [id number]) 60 mcg IM .ONCE ONE Stop: 06/15/17 18:46 Iopamidol (Isovue-370 (76%)) 100 ml IVPUSH ONETIME ONE Stop: 06/15/17 15:18 Last Admin: 06/15/17 15:30 Dose: 100 ml Lorazepam (Ativan) 0.5 mg IVPUSH ONETIME ONE Stop: 06/15/17 13:17 Last Admin: 06/15/17 13:33 Dose: 0.5 mg Methylprednisolone Sodium Succinate (Solu-Medrol) 125 mg IVPUSH ONETIME ONE Stop: 06/15/17 20:59 Last Admin: 06/15/17 21:47 Dose: 125 mg Sodium Chloride (Saline Flush) 10 ml FLUSH ONETIME ONE Stop: 06/15/17 15:18 Last Admin: 06/15/17 15:30 Dose: 10 ml Warfarin Sodium (Coumadin) 10 mg PO ONETIME ONE Stop: 06/15/17 21:05 Last Admin: 06/15/17 21:46 Dose: 10 mg Warfarin Sodium (Coumadin) 7.5 mg PO ONETIME ONE Stop: 06/16/17 18:01 Last Admin: 06/16/17 17:28 Dose: 7.5 mg - Exam General: Alert, Oriented, Cooperative, No Acute Distress HEENT: Pupils Equal, Pupils Reactive, EOMI, Mucous Membr. Moist/[place] Neck: Supple Lungs: Clear to Auscultation, Normal Respiratory Effort Cardiovascular: Regular Rate, Irregular Rhythm GI/Abdominal Exam: Normal Bowel Sounds, Soft, Non-Tender, No Organomegaly, No Distention, No Abnormal Bruit, No Mass, Pelvis Stable (Male) Exam: Deferred Back Exam: Normal Inspection, Full Range of Motion Extremities: Normal Inspection, Normal Range of Motion, Non-Tender, No Pedal Edema, Normal Capillary Refill Skin: Warm, Dry, Intact Neurological: No New Focal Deficit Psy/Mental Status: Alert, Normal Affect, Normal Mood - Assessment Assessment:: Patient is a 57 yo male who was admitted for atrial flutter. The patient says he is feeling much better from the previous day. He states that the tickle in his throat is well controlled with throat lozenge and is staying constant. He was tested for strep throat and it was negative. He does not report any chest pain. He says that he is used to his irregular heart rhythm that he does not notice it anymore. He also reports that his gout is improved and overall is feeling much better. He spoke with Juan Trejo LAC and he is willing to try an inpatient program at [facility]. He says he also has a follow up appointment with a family medicine provider here at [facility]. On cardiac exam there is still an irregular rhythm and tachycardia. The gout in his left big toe and right pinky finger look much better and still have some erythema. Rest of focus exam is unremarkable. - Plan Plan:: I/P Acute: Afib/flutter with RVR - Rate in upper 120s in ED; HR now in the teens - Given Cardizem IVP and started on Cardizem IV drip per protocol - continue - Supposed to be taking metoprolol, warfarin, and cardizem but quit taking due to cost - Last saw cardiology 2 years prior - 2D echo completed - Continue Lovenox and Warfarin; pharmacy to monitor and adjust dosage - Daily PT/INR - [id number] score - 2 (2.2% stroke risk per year) - HAS-BLED score - 2 (moderate risk of major bleeding); 3 after anti- coagulation (high risk of major bleeding) - Titrate to come off cardizem drip - Start oral Cardizem 240 mg po daily and Metoprolol Tartrate 50 mg po BID once off drip Heart Failure with Reduced EF - Acute on chronic - Reportedly gained 5-10 lbs over last maurice - Denies any edema and none noted on exam - Denies SOB - BNP 6192 in ED--> 1270--> Today 1518 - Given 60mg Lasix in ED - Lasix 20 mg po daily and salt restriction - Echo obtained 08/17/16 interpreted as: - left ventricular ejection fraction by visual estimation is 15%. - Left ventricular internal cavity size is normal. - Elevated mean arterial pressure. - There is moderate biatrial dilation. - Mild mitral regurgitation. - Right ventricular systolic pressure is mildly elevated at 42.0 mmHg. - Inferior vena cava is dilated with respiratory size variation less than 50%. - Repeat echo completed; waiting on report Alcohol Abuse - Has hx/o chronic alcohol use - Reportedly drinks nearly a pint of fireball for 3-4 days and then stops. - States last drink was approximately 3 days ago - Denies any withdrawal symptoms. - 2mg lorazepam ordered for seizure precautions - Liver enzymes WNL - Will hold off [facility] protocol for now - counselor consult - Consider supplementation Elevated D-Dimer - 0.82 in ED - Reports SOB in ED - Negative CTA Anxiety, Stable - Very anxious about health per nursing reports - Pt. states he was supposed to be cardioverted multiple times but refused due to fear of procedure - Noncompliant for healthcare - 0.5mg ativan ordered PRN for anxiety Gout Attack - Hx/o prior gout attacks and pseudogout attacks - Uric acid 10.2 in ED - C/o left great toe and right pinky finger pain. Says its improving - Redness/swelling noted in physical exam - Took indomethacin from friend prior to arrival for attack - Received Solumderol 125 IVP x1 - Continue Naproxen 500 mg BID and Allopurinol 100 mg daily - Gout Diet Incidental Lung nodule - 7mm nodule within right upper lung - Dr. Rajan recommends follow-up chest CT within 6 months (December 2017) which can be preformed without contrast. - PCP to monitor Chronic: As above Plan: He is clinically much better today Transfer to Med-Surg with Tele once off cardizem drip CM/SW for discharge planning Continue PT/OT Routine AM labs Other orders as indicated above Code Status: Full Code. He does not have a PCP and should establish locally. Possible d/c in AM <Terrance Marin T - Last Filed: 06/18/17 00:57> - General Info Functional Status: Reports: Pain Controlled, Tolerating Diet, Ambulating, Urinating, New Symptoms (weakness) - Review of Systems General: Reports: Weakness. Denies: Fever, Chills HEENT: Reports: No Symptoms Pulmonary: Reports: Cough. Denies: Shortness of Breath Cardiovascular: Denies: Chest Pain, Palpitations, Dyspnea on Exertion, Lightheadedness Gastrointestinal: Denies: Abdominal Pain, Nausea, Vomiting Genitourinary: Reports: No Symptoms Musculoskeletal: Reports: No Symptoms Skin: Denies: Cyanosis, Pallor, Diaphoresis, Pruritis Neurological: Denies: Confusion, Difficulty Walking, Weakness, Gait Disturbance Psychiatric: Denies: Depression, Anxiety, Agitation, Hallucinations, Suicidal Ideation Systems Review Comment:: No significant overnight or acute issues. He is doing just fine. He slept good but feels weak. He still has the cough. His HR is now pretty much controlled. Hs INR still subtherapeutic at 1.5. His WBC went up considerably to 21.20 from 8.73 this am. - Patient Data Vitals - Most Recent: Last Vital Signs Temp 36.6 C 06/17/17 21:25 Pulse 78 06/17/17 21:25 Resp 16 06/17/17 21:25 BP 118/92 H 06/17/17 21:26 Pulse Ox 100 06/17/17 21:25 I&O - Last 24 Hours: Intake & Output 06/17/17 06/17/17 06/18/17 14:59 22:59 06:59 Intake Total 1220 390 Output Total 300 300 Balance 920 90 Lab Results Last 24 Hours: Laboratory Results - last 24 hr 06/17/17 06/17/17 06/17/17 Range/Units 05:35 05:35 05:35 WBC 21.20 H (4.23-9.07) K/mm3 RBC 5.70 (4.63-6.08) M/mm3 Hgb 17.9 H (13.7-17.5) gm/L Hct 51.0 (40.1-51.0) % MCV 89.5 (79.0-92.2) fl MCH 31.4 (25.7-32.2) pg MCHC 35.1 (32.2-35.5) g/dl RDW Std Deviation 44.2 H (35.1-43.9) fL Plt Count 326 (163-337) K/mm3 MPV 9.7 (9.4-12.3) fl Neut % (Auto) 81.0 H (34.0-67.9) % Lymph % (Auto) 10.1 L (21.8-53.1) % [place] % (Auto) 8.4 (5.3-12.2) % Eos % (Auto) 0 L (0.8-7.0) Baso % (Auto) 0.1 (0.1-1.2) % Neut # (Auto) 17.16 H (1.78-5.38) K/mm3 Lymph # (Auto) 2.15 (1.32-3.57) K/mm3 [place] # (Auto) 1.78 H (0.30-0.82) K/mm3 Eos # (Auto) 0.00 L (0.04-0.54) K/mm3 Baso # (Auto) 0.02 (0.01-0.08) K/mm3 Manual Slide Review Abnormal smear PT 17.9 H (8.0-13.0) SECONDS INR 1.59 Sodium 137 (136-145) mEq/L Potassium 4.9 (3.5-5.1) mEq/L Chloride 102 (98-107) mEq/L Carbon Dioxide 23 (21-32) mEq/L Anion Gap 16.9 H (5-15) BUN 33 H (7-18) mg/dL Creatinine 1.5 H (0.7-1.3) mg/dL Est Cr Clr Drug Dosing 56.48 mL/min Estimated GFR (MDRD) 48 (>60) mL/min BUN/Creatinine Ratio 22.0 H (14-18) Glucose 125 H (74-106) mg/dL Calcium 9.1 (8.5-10.1) mg/dL Magnesium 2.3 (1.8-2.4) mg/dl C-Reactive Protein (<1.0) mg/dL NT-Pro-B Natriuret Pep 1518 H (0-125) pg/mL 06/17/17 Range/Units 05:35 WBC (4.23-9.07) K/mm3 RBC (4.63-6.08) M/mm3 Hgb (13.7-17.5) gm/L Hct (40.1-51.0) % MCV (79.0-92.2) fl MCH (25.7-32.2) pg MCHC (32.2-35.5) g/dl RDW Std Deviation (35.1-43.9) fL Plt Count (163-337) K/mm3 MPV (9.4-12.3) fl Neut % (Auto) (34.0-67.9) % Lymph % (Auto) (21.8-53.1) % [place] % (Auto) (5.3-12.2) % Eos % (Auto) (0.8-7.0) Baso % (Auto) (0.1-1.2) % Neut # (Auto) (1.78-5.38) K/mm3 Lymph # (Auto) (1.32-3.57) K/mm3 [place] # (Auto) (0.30-0.82) K/mm3 Eos # (Auto) (0.04-0.54) K/mm3 Baso # (Auto) (0.01-0.08) K/mm3 Manual Slide Review PT (8.0-13.0) SECONDS INR Sodium (136-145) mEq/L Potassium (3.5-5.1) mEq/L Chloride (98-107) mEq/L Carbon Dioxide (21-32) mEq/L Anion Gap (5-15) BUN (7-18) mg/dL Creatinine (0.7-1.3) mg/dL Est Cr Clr Drug Dosing mL/min Estimated GFR (MDRD) (>60) mL/min BUN/Creatinine Ratio (14-18) Glucose (74-106) mg/dL Calcium (8.5-10.1) mg/dL Magnesium (1.8-2.4) mg/dl C-Reactive Protein 1.7 H* (<1.0) mg/dL NT-Pro-B Natriuret Pep (0-125) pg/mL Kai Results Last 24 Hours: Microbiology 06/16/17 11:26 Quick Strep Confirmation Culture - Final Throat NEGATIVE FOR BETA STREP Group A Streptococcus Rapid Screen - Final NEGATIVE STREP A SCREEN Med Orders - Current: Current Medications Acetaminophen (Tylenol) 650 mg PO ASDIRECTED PRN PRN Reason: gout flareups Albuterol/Ipratropium (Duoneb 3.0-0.5 Mg/3 Ml) 3 ml NEB Q4H PRN PRN Reason: Shortness Of Breath/wheezing Allopurinol (Zyloprim) 100 mg PO DAILY [facility] Last Admin: 06/17/17 08:01 Dose: 100 mg Benzocaine/Menthol (Cepacol Sore Throat) 1 lozenge MUCMEM Q8HR PRN PRN Reason: Sore Throat Last Admin: 06/16/17 11:56 Dose: 1 lozenge Bumetanide (Bumex) 0.5 mg IVPUSH BID [facility] Last Admin: 06/17/17 21:13 Dose: 0.5 mg Diltiazem HCl (Dilacor Xr) 240 mg PO DAILY [facility] Last Admin: 06/17/17 08:01 Dose: 240 mg Enoxaparin Sodium (Lovenox) 100 mg SUBCUT DAILY [facility] Last Admin: 06/17/17 08:00 Dose: 100 mg Levofloxacin/Dextrose 750 mg/ (Premix) 150 mls @ 100 mls/hr IV Q24H [facility] Lorazepam (Ativan) 0.5 mg PO Q6H PRN PRN Reason: anxiety Last Admin: 06/16/17 17:32 Dose: 0.5 mg Lorazepam (Ativan) 2 mg IVPUSH Q4H PRN PRN Reason: Seizures Magnesium Sulfate (Pharmacy To Dose - Magnesium Replacement) 1 dose .XX ASDIRECTED [facility] Metoprolol Tartrate (Lopressor) 50 mg PO BID [facility] Last Admin: 06/17/17 21:14 Dose: 50 mg Metoprolol Tartrate (Lopressor) 5 mg IVPUSH Q4H PRN PRN Reason: Tachycardia Naproxen (Naprosyn) 500 mg PO Q12HR [facility] Last Admin: 06/17/17 21:14 Dose: 500 mg Non-Formulary Medication (Ibuprofen [Ibuprofen]) 200 mg PO ASDIRECTED PRN PRN Reason: gout flareups Oxycodone/Acetaminophen (Percocet 325-5 Mg) 1 - 2 tab PO Q6H PRN PRN Reason: Pain Last Admin: 06/15/17 21:44 Dose: 1 tab Potassium Chloride (Pharmacy To Dose - Potassium Replacement) 1 dose .XX ASDIRECTED [facility] Temazepam (Restoril) 15 mg PO BEDTIME PRN PRN Reason: Sleep Last Admin: 06/15/17 21:47 Dose: 15 mg Warfarin Sodium (Pharmacy To Dose - Warfarin) 1 dose .XX ASDIRECTED [facility] Discontinued Medications Aspirin (Ecotrin) 325 mg PO DAILY [facility] Diltiazem HCl (Diltiazem) 15 mg IVPUSH NOW ONE Stop: 06/15/17 13:17 Last Admin: 06/15/17 13:34 Dose: 15 mg Diltiazem HCl (Cardizem Cd) 240 mg PO DAILY [facility] Last Admin: 06/16/17 08:48 Dose: 240 mg Diltiazem HCl (Cardizem Cd) 360 mg PO DAILY [facility] Enoxaparin Sodium (Lovenox) 100 mg SUBCUT ONETIME ONE Stop: 06/15/17 21:06 Last Admin: 06/15/17 21:47 Dose: 100 mg Enoxaparin Sodium (Lovenox) 150 mg SUBCUT BEDTIME [facility] Furosemide (Lasix) 40 mg IVPUSH NOW ONE Stop: 06/15/17 15:31 Last Admin: 06/15/17 16:08 Dose: 40 mg Magnesium Sulfate 2 gm/ Premix 50 mls @ 25 mls/hr IV ONETIME ONE Stop: 06/15/17 15:15 Last Admin: 06/15/17 13:37 Dose: 25 mls/hr Sodium Chloride (Normal Saline) 1,000 mls @ 75 mls/hr IV ONETIME ONE Stop: 06/16/17 02:36 Last Admin: 06/15/17 13:32 Dose: 75 mls/hr Diltiazem HCl 125 mg/ Sodium (Chloride) 125 mls @ 5 mls/hr IV TITRATE JESSICA; 5 MG /HR PRN Reason: Protocol Last Titration: 06/16/17 09:56 Dose: 0 mg/hr, 0 mls/hr Sodium Chloride (Normal Saline) 100 mls @ 60 mls/hr IV ASDIRECTED JESSICA Last Admin: 06/15/17 15:30 Dose: 60 mls/hr Levofloxacin/Dextrose 750 mg/ (Premix) 150 mls @ 100 mls/hr IV ONETIME ONE Stop: 06/17/17 13:05 Last Admin: 06/17/17 12:02 Dose: 100 mls/hr Influenza Virus Vaccine (Pharmacy To Dose - Influenza Vaccine) 1 each IM ONETIME ONE Stop: 06/15/17 18:38 Influenza Virus Vaccine (Flulaval Quad [id number]) 60 mcg IM .ONCE ONE Stop: 06/15/17 18:46 Iopamidol (Isovue-370 (76%)) 100 ml IVPUSH ONETIME ONE Stop: 06/15/17 15:18 Last Admin: 06/15/17 15:30 Dose: 100 ml Lorazepam (Ativan) 0.5 mg IVPUSH ONETIME ONE Stop: 06/15/17 13:17 Last Admin: 06/15/17 13:33 Dose: 0.5 mg Methylprednisolone Sodium Succinate (Solu-Medrol) 125 mg IVPUSH ONETIME ONE Stop: 06/15/17 20:59 Last Admin: 06/15/17 21:47 Dose: 125 mg Sodium Chloride (Saline Flush) 10 ml FLUSH ONETIME ONE Stop: 06/15/17 15:18 Last Admin: 06/15/17 15:30 Dose: 10 ml Warfarin Sodium (Coumadin) 10 mg PO ONETIME ONE Stop: 06/15/17 21:05 Last Admin: 06/15/17 21:46 Dose: 10 mg Warfarin Sodium (Coumadin) 7.5 mg PO ONETIME ONE Stop: 06/16/17 18:01 Last Admin: 06/16/17 17:28 Dose: 7.5 mg Warfarin Sodium (Coumadin) 7.5 mg PO ONETIME ONE Stop: 06/17/17 18:01 Last Admin: 06/17/17 17:26 Dose: 7.5 mg - Exam General: Alert, Oriented, Cooperative, No Acute Distress HEENT: Pupils Equal, Pupils Reactive, EOMI, Mucous Membr. Moist/[place] Neck: Supple, Trachea Midline, No JVD Lungs: Clear to Auscultation, Normal Respiratory Effort Cardiovascular: Irregular Rhythm GI/Abdominal Exam: Normal Bowel Sounds, Soft, Non-Tender, No Organomegaly, No Distention, No Abnormal Bruit, No Mass (Male) Exam: Deferred Back Exam: Normal Inspection, Full Range of Motion Extremities: Normal Inspection, Normal Range of Motion, Non-Tender, No Pedal Edema, Normal Capillary Refill Peripheral Pulses: 2+: Dorsalis Pedis (L), Dorsalis Pedis (R) Skin: Warm, Dry, Intact Neurological: No New Focal Deficit Psy/Mental Status: Alert, Normal Affect, Normal Mood - Problem List Review Problem List Initiated/Reviewed/Updated: Yes - My Orders Last 24 Hours: My Active Orders 06/17/17 09:00 Diltiazem [Dilacor XR] 240 mg PO DAILY 06/18/17 05:11 CRP [C-REACTIVE PROTEIN] [CHEM] AM 06/18/17 11:30 Levofloxacin/Dextrose 5%-Water [Levaquin in D5W 750 MG/150 ML] 750 mg Premix Bag 1 bag IV Q24H 06/19/17 05:11 CRP [C-REACTIVE PROTEIN] [CHEM] AM 06/20/17 05:11 CRP [C-REACTIVE PROTEIN] [CHEM] AM 06/21/17 05:11 CRP [C-REACTIVE PROTEIN] [CHEM] AM - Plan Plan:: I/P Acute: Afib/flutter with RVR, now HR controlled - Rate in upper 120s in ED - Off cardizem drip - Supposed to be taking metoprolol, warfarin, and cardizem but quit taking due to cost - Last saw cardiology 2 years prior - 2D echo; LVEF of 30 % - Continue Lovenox and Warfarin; pharmacy to monitor and adjust dosage - Daily PT/INR - [id number] score - 2 (2.2% stroke risk per year) - HAS-BLED score - 2 (moderate risk of major bleeding); 3 after anti- coagulation (high risk of major bleeding) - Continue oral Cardizem 240 mg po daily and Metoprolol Tartrate 50 mg po BID Heart Failure with Reduced EF - Acute on chronic - Reportedly gained 5-10 lbs over last maurice - Denies any edema and none noted on exam - Denies SOB - BNP 6192 in ED--> 1270--> Today 1518 - Loop diuretic and salt restriction - Echo obtained 08/17/16 interpreted as: - left ventricular ejection fraction by visual estimation is 15%. - Left ventricular internal cavity size is normal. - Elevated mean arterial pressure. - There is moderate biatrial dilation. - Mild mitral regurgitation. - Right ventricular systolic pressure is mildly elevated at 42.0 mmHg. - Inferior vena cava is dilated with respiratory size variation less than 50%. - Repeat echo completed: LVEF 30% with Regional Wall Motion Abnormality ( Severe Generalized Hypokinesis of the Left Ventricle) Alcohol Abuse - Has hx/o chronic alcohol use - Reportedly drinks nearly a pint of fireball for 3-4 days and then stops. - States last drink was approximately 3 days ago - Denies any withdrawal symptoms. - 2mg lorazepam ordered for seizure precautions - Liver enzymes WNL - [facility] protocol - counselor consulted: recommended outpatient treatment at [facility]; if no beds available likely to go inpatient - Consider supplementation Gout Attack, Improved - Hx/o prior gout attacks and pseudogout attacks - Uric acid 10.2 in ED - C/o left great toe and right pinky finger pain. Says its improving - Redness/swelling noted in physical exam - Took indomethacin from friend prior to arrival for attack - Received Solumedrol 125 IVP x1 - Continue Naproxen 500 mg BID and Allopurinol 100 mg daily - Gout Diet Bronchitis - He dry cough - CT scan reads patchy parenchymal density within the left upper lung possibly due to pneumonia - IV Levaquin for prophylaxis - Continue cepacol and will add cough suppressants - Repeat CXR today Incidental Lung nodule - 7mm nodule within right upper lung - Dr. Rajan recommends follow-up chest CT within 6 months (December 2017) which can be preformed without contrast. - PCP to monitor Resolved: Elevated D-Dimer - 0.82 in ED - Reports SOB in ED - Negative CTA Anxiety, Stable - Very anxious about health per nursing reports - Pt. states he was supposed to be cardioverted multiple times but refused due to fear of procedure - Noncompliant for healthcare - 0.5mg ativan ordered PRN for anxiety Chronic: As above Plan: He remains clinically stable Continue current treatment/PT/OT Routine AM labs CM/SW for discharge planning Other orders as indicated above Code Status: Full Code. He does not have a PCP and should establish locally. LOS anticipate > 96 hrs pending placement for chemical dependency treatment
[2017-06-17] MEDS ORDERED: Diltiazem 120 MG Cap.CD PO SCH (09:00)
[2017-06-17] MEDS ORDERED: Levofloxacin/Dextrose 5%-Water 750 MG in Premix Bag 1 BAG IV ONE (11:36)
--- NOTE | 2017-06-17 12:02 | CR ---
Chest: Portable view of the chest was obtained. Comparison: Prior chest x-ray of 06/15/17. Heart size is normal. Tortuous thoracic aorta is seen. Lungs are clear. Bony structures are grossly intact. Impression: 1. Nothing acute is seen on portable chest x-ray. Diagnostic code #1
[2017-06-17] MEDS ORDERED: Warfarin 7.5 MG Tab PO ONE (18:00)
[2017-06-18] MEDS ORDERED: cloNIDine 0.1 MG/Day Transdermal Patch TRDERM SCH (01:00)
[2017-06-18] MEDS: LORazepam 0.5 MG Tab PO PRN (03:00)
[2017-06-18] MEDS ORDERED: Hydrochlorothiazide 12.5 MG Cap PO SCH (06:00)
[2017-06-18] MEDS ORDERED: Benzonatate 100 MG Cap PO PRN (06:00)
[2017-06-18] MEDS ORDERED: Ibuprofen 200 MG Tab PO PRN (07:45)
[2017-06-18 09:11] VITALS: BP 147/95
--- NOTE | 2017-06-18 09:19 | PCM.DCSUM1 ---
Discharge Summary - Hospital Course Brief History: Julius Sheehan is a 57 yo male with past medical hx/o Afib- aflutter, HF with Reduced EF of 15%, HTN, Gout, Chronic Pain and Substance Abuse who presents to our ED after noon with a "fast heart rate" and shortness of breath. He was admitted for medical management of atrial flutter. - Discharge Data Discharge Date: 06/18/17 Discharge Disposition: DC/Tfer to Inpt Rehab Fac 62 Condition: Good - Discharge Diagnosis/Problem(s) (1) Substance abuse or dependence SNOMED Code(s): 12199503 ICD Code: [id number] - Status: Acute (2) Alcohol abuse SNOMED Code(s): 15656262 ICD Code: F10.10 - ALCOHOL ABUSE, UNCOMPLICATED Status: Acute Priority: Medium (3) Atrial flutter SNOMED Code(s): 0430922 ICD Code: I48.92 - UNSPECIFIED ATRIAL FLUTTER Status: Acute Priority: High (4) Marijuana abuse SNOMED Code(s): 94281012 ICD Code: F12.10 - CANNABIS ABUSE, UNCOMPLICATED Status: Acute (5) CHF (congestive heart failure) SNOMED Code(s): 89333490 ICD Code: I50.9 - HEART FAILURE, UNSPECIFIED Status: Resolved Priority: High Qualifiers: Congestive heart failure type: systolic Congestive heart failure chronicity : acute on chronic Qualified Code(s): I50.23 - Acute on chronic systolic ( congestive) heart failure (6) Gout attack SNOMED Code(s): 60237227 ICD Code: M10.9 - GOUT, UNSPECIFIED Status: Resolved Priority: High Qualifiers: Gout site: foot Gout etiology: unspecified cause Laterality: left Qualified Code(s): M10.9 - Gout, unspecified (7) Incidental lung nodule, > 3mm and < 8mm SNOMED Code(s): 830796526 ICD Code: R91.1 - SOLITARY PULMONARY NODULE Status: Acute Priority: Low Problem Details: 7 mm nodule within right upper chest on 06/15/17. Follow-up chest CT recommended Dec, 2017. - Patient Summary/Data Operative Procedure(s) Performed: None Complications: None Consults: Consultations 06/15/17 20:55 Consult to Case Management [CONS] Routine Consult to Spray Gunner [CONS] Routine 06/16/17 13:52 Consult for Substance Abuse [CONS] Routine Labs Pending at D/C: None Recommended Follow-up Testing/Procedures: None Planned Operative Procedure(s) after DC: None Hospital Course: Patient was primarily admitted for medical management of atrial fibrillation and acute congestive heart failure. He carried a past medical hx/o paroxysmal afib-aflutter in past. He was put on cardizem drip and then switched to oral dose once his rate was controlled. His [id number] score was 2 so he was offered DOACs but her chose warfarin for stroke prophylaxis. His INR was at therapeutic range at the time of discharge. As for his heart failure, he was known to have an EF of 15%. He was placed on heart-failure protocol and he improved on this regimen. His repeat 2D echo showed improved EF of 30%. He was put on lasix, spironolacton and low dose lisinopril on discharge. His hospital course was complicated by acute onset of gout which we felt induced by his alcoholic drinking. He was given anti-inflammatory and uricosuric agent for maintenance medication. On this admission, we addressed his chronic substance abuse and offered him help. He was receptive to it and agreed for inpatient chemical rehab to [facility] in [place]. Once medically stable, he was transferred to [facility] under the services of Dr. Collins, attending psychiatrist for further treatment. He was advised to see his PCP after discharge from chemical treatment. He was further advised to keep his cardiology appointment as scheduled. The patient expressed understanding and in agreement wit the plans as discussed above. All questions were answered. - Patient Instructions Diet: Heart Healthy Diet, Low Sodium (2 grams) Fluid Restriction: 2000 mL Activity: As Tolerated Driving: Do Not Drive Showering/Bathing: May Shower Notify Provider of: Increased Pain, Swelling and Redness, Nausea and/or Vomiting Other/Special Instructions: - Please take all medications as directed. - Follow daily fluid and salt restrictions. - Avoid high protein diet for now due to Gout Attack. - Avoid Alcohol! - Hold Warfarin dose tonight. - Recommend follow up INR level on Thursday. - Follow up with you PCP after discharge from chemical dependency rehab. - Keep your cardiology appointment as scheduled - Discharge Plan Prescriptions/Med Rec: Allopurinol [Zyloprim] 100 mg PO DAILY #30 tablet Diltiazem [Cardizem CD] 180 mg PO DAILY #30 cap.cd Furosemide [Lasix] 20 mg PO ASDIRECTED #90 tablet Lisinopril 5 mg PO DAILY #30 tablet Spironolactone [Aldactone] 25 mg PO ASDIRECTED #60 tablet Warfarin [Coumadin] 1 mg PO ASDIRECTED #30 tablet Home Medications: Home Meds Aspirin [Ecotrin] 325 mg PO DAILY 08/15/14 [History] Metoprolol Tartrate 50 mg PO BID 10/18/16 [History] Acetaminophen [Tylenol Extra Strength] 500 mg PO ASDIRECTED PRN 06/15/17 [ History] Allopurinol [Zyloprim] 100 mg PO DAILY #30 tablet 06/18/17 [Rx] Diltiazem [Cardizem CD] 180 mg PO DAILY #30 cap.cd 06/18/17 [Rx] Furosemide [Lasix] 20 mg PO ASDIRECTED #90 tablet 06/18/17 [Rx] Lisinopril 5 mg PO DAILY #30 tablet 06/18/17 [Rx] Naproxen 500 mg PO BID #6 tablet 06/18/17 [Rx] Spironolactone [Aldactone] 25 mg PO ASDIRECTED #60 tablet 06/18/17 [Rx] Warfarin [Coumadin] 1 mg PO ASDIRECTED #30 tablet 06/18/17 [Rx] Patient Handouts: Low-Purine Diet, Atrial Flutter, Heart Failure, [id number] Referrals: Bairon Valdez [Ordering Only Provider] - 10/13/17 1:00 pm (This appt. is in [place] at [facility] this is for you EP (Electric physiology)) Khanh Oquendo MD [Ordering Only Provider] - 08/10/17 1:20 pm (This appt. is in [facility] time. Please arrive 1220 for labs appt. and to see Doctor it is at 1:20 (this appt. is for your account administrator.) - Discharge Summary/Plan Comment DC Time >30 min.: Yes (45 mins) Discharge Summary/Plan Comment: Transfer to [facility] for chemical dependency rehab under the services of Dr. Collins - General Info Date of Service: 06/18/17 Admission Dx/Problem (Free Text: A-fib with RVR Subjective Update: Follow Up Functional Status: Reports: Pain Controlled, Tolerating Diet - Review of Systems General: Denies: Fever, Chills HEENT: Reports: No Symptoms Pulmonary: Denies: Shortness of Breath Cardiovascular: Denies: Chest Pain, Palpitations, Dyspnea on Exertion, Lightheadedness Gastrointestinal: Reports: Abdominal Pain, Nausea, Vomiting Genitourinary: Reports: No Symptoms Musculoskeletal: Reports: No Symptoms Skin: Denies: Cyanosis, Mottled, Pallor, Diaphoresis, Bruising, Pruritis Neurological: Denies: Confusion, Difficulty Walking, Weakness, Gait Disturbance Psychiatric: Denies: Depression, Anxiety, Agitation, Hallucinations Systems Review Comment: No overnight or acute issues. He feels really good and he is doing relatively well. He has no new complaints. - Patient Data Vitals - Most Recent: Last Vital Signs Temp 36.5 C 06/18/17 09:08 Pulse 100 06/18/17 09:08 Resp 16 06/18/17 09:08 BP 147/95 H 06/18/17 09:08 Pulse Ox 98 06/18/17 09:08 Weight - Most Recent: 99.654 kg I&O - Last 24 hours: Intake & Output 06/17/17 06/18/17 06/18/17 22:59 06:59 14:59 Intake Total 390 425 Output Total 300 1120 Balance 90 -695 Lab Results - Last 24 hrs: Laboratory Results - last 24 hr 06/17/17 06/18/17 06/18/17 Range/Units 05:35 06:34 06:34 WBC 10.22 H (4.23-9.07) K/mm3 RBC 5.68 (4.63-6.08) M/mm3 Hgb 17.3 (13.7-17.5) gm/L Hct 51.0 (40.1-51.0) % MCV 89.8 (79.0-92.2) fl MCH 30.5 (25.7-32.2) pg MCHC 33.9 (32.2-35.5) g/dl RDW Std Deviation 44.6 H (35.1-43.9) fL Plt Count 284 (163-337) K/mm3 MPV 9.9 (9.4-12.3) fl Neut % (Auto) 58.3 (34.0-67.9) % Lymph % (Auto) 31.8 (21.8-53.1) % [place] % (Auto) 8.8 (5.3-12.2) % Eos % (Auto) 0.2 L (0.8-7.0) Baso % (Auto) 0.2 (0.1-1.2) % Neut # (Auto) 5.96 H (1.78-5.38) K/mm3 Lymph # (Auto) 3.25 (1.32-3.57) K/mm3 [place] # (Auto) 0.90 H (0.30-0.82) K/mm3 Eos # (Auto) 0.02 L (0.04-0.54) K/mm3 Baso # (Auto) 0.02 (0.01-0.08) K/mm3 PT (8.0-13.0) SECONDS INR Sodium 138 (136-145) mEq/L Potassium 4.2 (3.5-5.1) mEq/L Chloride 101 (98-107) mEq/L Carbon Dioxide 23 (21-32) mEq/L Anion Gap 18.2 H (5-15) BUN 40 H (7-18) mg/dL Creatinine 1.4 H (0.7-1.3) mg/dL Est Cr Clr Drug Dosing 60.51 mL/min Estimated GFR (MDRD) 52 (>60) mL/min BUN/Creatinine Ratio 28.6 H (14-18) Glucose 94 (74-106) mg/dL Calcium 8.6 (8.5-10.1) mg/dL Magnesium 2.3 (1.8-2.4) mg/dl C-Reactive Protein 1.7 H* 0.5 (<1.0) mg/dL 06/18/17 Range/Units 06:34 WBC (4.23-9.07) K/mm3 RBC (4.63-6.08) M/mm3 Hgb (13.7-17.5) gm/L Hct (40.1-51.0) % MCV (79.0-92.2) fl MCH (25.7-32.2) pg MCHC (32.2-35.5) g/dl RDW Std Deviation (35.1-43.9) fL Plt Count (163-337) K/mm3 MPV (9.4-12.3) fl Neut % (Auto) (34.0-67.9) % Lymph % (Auto) (21.8-53.1) % [place] % (Auto) (5.3-12.2) % Eos % (Auto) (0.8-7.0) Baso % (Auto) (0.1-1.2) % Neut # (Auto) (1.78-5.38) K/mm3 Lymph # (Auto) (1.32-3.57) K/mm3 [place] # (Auto) (0.30-0.82) K/mm3 Eos # (Auto) (0.04-0.54) K/mm3 Baso # (Auto) (0.01-0.08) K/mm3 PT 32.9 H (8.0-13.0) SECONDS INR 2.82 Sodium (136-145) mEq/L Potassium (3.5-5.1) mEq/L Chloride (98-107) mEq/L Carbon Dioxide (21-32) mEq/L Anion Gap (5-15) BUN (7-18) mg/dL Creatinine (0.7-1.3) mg/dL Est Cr Clr Drug Dosing mL/min Estimated GFR (MDRD) (>60) mL/min BUN/Creatinine Ratio (14-18) Glucose (74-106) mg/dL Calcium (8.5-10.1) mg/dL Magnesium (1.8-2.4) mg/dl C-Reactive Protein (<1.0) mg/dL ARINA Results - Last 24 hrs: Microbiology 06/16/17 11:26 Quick Strep Confirmation Culture - Final Throat NEGATIVE FOR BETA STREP Group A Streptococcus Rapid Screen - Final NEGATIVE STREP A SCREEN Med Orders - Current: Current Medications Acetaminophen (Tylenol) 650 mg PO ASDIRECTED PRN PRN Reason: gout flareups Albuterol/Ipratropium (Duoneb 3.0-0.5 Mg/3 Ml) 3 ml NEB Q4H PRN PRN Reason: Shortness Of Breath/wheezing Allopurinol (Zyloprim) 100 mg PO DAILY JESSICA Last Admin: 06/17/17 08:01 Dose: 100 mg Benzocaine/Menthol (Cepacol Sore Throat) 1 lozenge MUCMEM Q8HR PRN PRN Reason: Sore Throat Last Admin: 06/16/17 11:56 Dose: 1 lozenge Benzonatate (Tessalon Perles) 100 mg PO TID PRN PRN Reason: Cough Bumetanide (Bumex) 0.5 mg IVPUSH BID [facility] Last Admin: 06/17/17 21:13 Dose: 0.5 mg Clonidine HCl (Catapres-Tts 1) 0.1 mg TRDERM Q7D [facility] Last Admin: 06/18/17 02:04 Dose: Not Given Diltiazem HCl (Dilacor Xr) 240 mg PO DAILY [facility] Last Admin: 06/17/17 08:01 Dose: 240 mg Hydrochlorothiazide (Hydrochlorothiazide) 12.5 mg PO BIDDIURETIC [facility] Last Admin: 06/18/17 06:37 Dose: 12.5 mg Levofloxacin/Dextrose 750 mg/ (Premix) 150 mls @ 100 mls/hr IV Q24H [facility] Ibuprofen (Motrin) 200 mg PO ASDIRECTED PRN PRN Reason: gout flareups Lorazepam (Ativan) 0.5 mg PO Q6H PRN PRN Reason: anxiety Last Admin: 06/18/17 03:00 Dose: 0.5 mg Lorazepam (Ativan) 2 mg IVPUSH Q4H PRN PRN Reason: Seizures Magnesium Sulfate (Pharmacy To Dose - Magnesium Replacement) 1 dose .XX ASDIRECTED [facility] Metoprolol Tartrate (Lopressor) 50 mg PO BID [facility] Last Admin: 06/17/17 21:14 Dose: 50 mg Metoprolol Tartrate (Lopressor) 5 mg IVPUSH Q4H PRN PRN Reason: Tachycardia Miscellaneous Information (Remove Patch) 1 ea TRDERM Q7D [facility] Naproxen (Naprosyn) 500 mg PO Q12HR [facility] Last Admin: 06/17/17 21:14 Dose: 500 mg Oxycodone/Acetaminophen (Percocet 325-5 Mg) 1 - 2 tab PO Q6H PRN PRN Reason: Pain Last Admin: 06/15/17 21:44 Dose: 1 tab Potassium Chloride (Pharmacy To Dose - Potassium Replacement) 1 dose .XX ASDIRECTED [facility] Temazepam (Restoril) 15 mg PO BEDTIME PRN PRN Reason: Sleep Last Admin: 06/15/17 21:47 Dose: 15 mg Warfarin Sodium (Pharmacy To Dose - Warfarin) 1 dose .XX ASDIRECTED [facility] Warfarin Sodium (Coumadin) 5 mg PO ONETIME ONE Stop: 06/18/17 18:01 Discontinued Medications Aspirin (Ecotrin) 325 mg PO DAILY JESSICA Diltiazem HCl (Diltiazem) 15 mg IVPUSH NOW ONE Stop: 06/15/17 13:17 Last Admin: 06/15/17 13:34 Dose: 15 mg Diltiazem HCl (Cardizem Cd) 240 mg PO DAILY [facility] Last Admin: 06/16/17 08:48 Dose: 240 mg Diltiazem HCl (Cardizem Cd) 360 mg PO DAILY [facility] Enoxaparin Sodium (Lovenox) 100 mg SUBCUT ONETIME ONE Stop: 06/15/17 21:06 Last Admin: 06/15/17 21:47 Dose: 100 mg Enoxaparin Sodium (Lovenox) 150 mg SUBCUT BEDTIME JESSICA Enoxaparin Sodium (Lovenox) 100 mg SUBCUT DAILY [facility] Last Admin: 06/17/17 08:00 Dose: 100 mg Furosemide (Lasix) 40 mg IVPUSH NOW ONE Stop: 06/15/17 15:31 Last Admin: 06/15/17 16:08 Dose: 40 mg Magnesium Sulfate 2 gm/ Premix 50 mls @ 25 mls/hr IV ONETIME ONE Stop: 06/15/17 15:15 Last Admin: 06/15/17 13:37 Dose: 25 mls/hr Sodium Chloride (Normal Saline) 1,000 mls @ 75 mls/hr IV ONETIME ONE Stop: 06/16/17 02:36 Last Admin: 06/15/17 13:32 Dose: 75 mls/hr Diltiazem HCl 125 mg/ Sodium (Chloride) 125 mls @ 5 mls/hr IV TITRATE JESSICA; 5 MG /HR PRN Reason: Protocol Last Titration: 06/16/17 09:56 Dose: 0 mg/hr, 0 mls/hr Sodium Chloride (Normal Saline) 100 mls @ 60 mls/hr IV ASDIRECTED JESSICA Last Admin: 06/15/17 15:30 Dose: 60 mls/hr Levofloxacin/Dextrose 750 mg/ (Premix) 150 mls @ 100 mls/hr IV ONETIME ONE Stop: 06/17/17 13:05 Last Admin: 06/17/17 12:02 Dose: 100 mls/hr Influenza Virus Vaccine (Pharmacy To Dose - Influenza Vaccine) 1 each IM ONETIME ONE Stop: 06/15/17 18:38 Influenza Virus Vaccine (Flulaval Quad [id number]) 60 mcg IM .ONCE ONE Stop: 06/15/17 18:46 Iopamidol (Isovue-370 (76%)) 100 ml IVPUSH ONETIME ONE Stop: 06/15/17 15:18 Last Admin: 06/15/17 15:30 Dose: 100 ml Lorazepam (Ativan) 0.5 mg IVPUSH ONETIME ONE Stop: 06/15/17 13:17 Last Admin: 06/15/17 13:33 Dose: 0.5 mg Methylprednisolone Sodium Succinate (Solu-Medrol) 125 mg IVPUSH ONETIME ONE Stop: 06/15/17 20:59 Last Admin: 06/15/17 21:47 Dose: 125 mg Non-Formulary Medication (Ibuprofen [Ibuprofen]) 200 mg PO ASDIRECTED PRN PRN Reason: gout flareups Sodium Chloride (Saline Flush) 10 ml FLUSH ONETIME ONE Stop: 06/15/17 15:18 Last Admin: 06/15/17 15:30 Dose: 10 ml Warfarin Sodium (Coumadin) 10 mg PO ONETIME ONE Stop: 06/15/17 21:05 Last Admin: 06/15/17 21:46 Dose: 10 mg Warfarin Sodium (Coumadin) 7.5 mg PO ONETIME ONE Stop: 06/16/17 18:01 Last Admin: 06/16/17 17:28 Dose: 7.5 mg Warfarin Sodium (Coumadin) 7.5 mg PO ONETIME ONE Stop: 06/17/17 18:01 Last Admin: 06/17/17 17:26 Dose: 7.5 mg - Exam General: Reports: Alert, Oriented, Cooperative, No Acute Distress HEENT: Reports: Pupils Equal, Pupils Reactive, EOMI, Mucous Membr. Moist/[place] Neck: Reports: Supple, Trachea Midline, No JVD Lungs: Reports: Clear to Auscultation, Normal Respiratory Effort Cardiovascular: Reports: Regular Rate, Regular Rhythm GI/Abdominal Exam: Normal Bowel Sounds, Soft, Non-Tender, No Organomegaly, No Distention, No Abnormal Bruit, No Mass, Pelvis Stable (Male) Exam: Deferred Rectal (Males) Exam: Deferred Back Exam: Reports: Normal Inspection, Decreased Range of Motion Extremities: Normal Inspection, Normal Range of Motion, Non-Tender, No Pedal Edema, Normal Capillary Refill Skin: Reports: Warm, Dry, Intact Neurological: Reports: No New Focal Deficit Psy/Mental Status: Reports: Alert, Normal Affect, Normal Mood *Q Meaningful Use (DIS) - VTE *Q VTE Criteria *Q: - Stroke *Q Stroke Criteria *Q: - AMI *Q AMI Criteria *Q:
[2017-06-18] MEDS: Metoprolol Tartrate 50 MG Tab PO SCH (09:20)
[2017-06-18] MEDS: Diltiazem 240 MG Cap.ER PO SCH (09:20)
[2017-06-18] MEDS: Bumetanide 1 MG/4 ML MDV IVPUSH SCH (09:21)
[2017-06-18] MEDS: Naproxen 500 MG Tab PO SCH (09:21)
[2017-06-18] MEDS: Allopurinol 100 MG Tab PO SCH (09:21)
[2017-06-18] MEDS ORDERED: Diphtheria,Pertussis(Acell),Tetanus Vaccine 0.5 ML SDV IM ONE (10:29)
[2017-06-18] MEDS ORDERED: Levofloxacin/Dextrose 5%-Water 750 MG in Premix Bag 1 BAG IV SCH (11:30)
[2017-06-18] MEDS ORDERED: Warfarin 5 MG Tab PO ONE (18:00)
== END 2017-06-18 10:41 | DRG 308 ==
LOC: JD.ED 12:46 → JD.ICU 17:31 → JD.MS 06-17 19:00
PROVIDERS: ADMIT Internal Medicine; ATTEND Internal Medicine
DX: I48.2 Chronic atrial fibrillation (principal); I50.23 Acute on chronic systolic (congestive) heart failure; I48.92 Unspecified atrial flutter; J02.9 Acute pharyngitis, unspecified; R05 Cough; Z79.01 Long term (current) use of anticoagulants; R91.1 Solitary pulmonary nodule; M10.9 Gout, unspecified; F10.10 Alcohol abuse, uncomplicated; F41.9 Anxiety disorder, unspecified; R79.1 Abnormal coagulation profile; F12.10 Cannabis abuse, uncomplicated; I11.0 Hypertensive heart disease with heart failure; Z79.82 Long term (current) use of aspirin; Z79.899 Other long term (current) drug therapy
CPT/HCPCS: 36415; 71010; 71010-26; 71275; 71275-26; 80048; 80053; 80306; 83735; 83880; 84443; 84484; 84550; 85025; 85379; 85610; 85730; 86140; 87081; 87430; 90471; 90686; 90715; 93005; 93010; 93306; 96365; 96366; 96367; 96375; 96376; 99223; 99231; 99232; 99239; 99285; 99285-25; A9270-GY; G0008; J1650; J1940; J1956; J2060; J2930; J3475; J3490; J7030; J7040; J7050; Q9967

== ENCOUNTER 2018-02-07 19:40 | Emergency (ER) | payer MEDICAID ==
[2018-02-07 19:53] VITALS: BP 155/105
--- NOTE | 2018-02-07 20:13 | EDM.PDOC ---
ED HPI GENERAL MEDICAL PROBLEM - General Chief Complaint: Lower Extremity Injury/Pain Stated Complaint: GOUT IN BOTH FEET Time Seen by Provider: 02/07/18 20:12 - History of Present Illness INITIAL COMMENTS - FREE TEXT/NARRATIVE: 57-year-old male presents emergency room with worsening gout. Patient has recurrent problems with gout his elbows and ankles and feet mostly this left great toe now he's having problems in his right forefoot multiple toes as well as his left great toe this is been acting up for the last 2 days. The patient is using colchicine without any success is using nonsteroidals and this is not help too much. Patient denies any fevers chills and nothing out of the ordinary from his prior gouty attacks he's usually responded most favorably to a short course of steroids in the past Bilateral Feet Pain Score (Numeric/FACES): 8 - Related Data Allergies Allergy/AdvReac Type Severity Reaction Status Date / Time No Known Allergies Allergy Verified 02/07/18 19:49 Home Meds: Home Meds Metoprolol Tartrate 50 mg PO BID 10/18/16 [History] Acetaminophen [Tylenol Extra Strength] 500 mg PO ASDIRECTED PRN 06/15/17 [ History] Allopurinol [Zyloprim] 100 mg PO DAILY #30 tablet 06/18/17 [Rx] Hydrocodone/Acetaminophen [Vicodin 5-300 mg Tablet] 300 mg PO BID PRN 07/16/17 [ History] Warfarin [Coumadin] 5 mg PO DAILY 02/07/18 [History] predniSONE [Prednisone] 40 mg PO QAM #10 tablet 02/07/18 [Rx] Past Medical History - Past Health History Medical/Surgical History: Denies Medical/Surgical History HEENT History: Reports: Other (See Below) Other HEENT History: ears cauterized when he was young. Cardiovascular History: Reports: Afib, Hypertension Other Cardiovascular History: stopped taking xarelto as could not afford it but is on adult asa Respiratory History: Reports: SOB Musculoskeletal History: Reports: Gout Other Musculoskeletal History: chronic pain in feet Other Neuro History: broken neck, [place] Psychiatric History: Reports: Addiction Hematologic History: Reports: None Immunologic History: Reports: None Oncologic (Cancer) History: Reports: None - Infectious Disease History Infectious Disease History: Reports: Other (See Below) Other Infectious Disease History: rickiets - Past Surgical History Head Surgeries/Procedures: Reports: None HEENT Surgical History: Reports: None Other Cardiovascular Surgeries/Procedures: angiogram Neurological Surgical History: Reports: None Musculoskeletal Surgical History: Reports: None Oncologic Surgical History: Reports: None Social & Family History - Family History Family Medical History: Noncontributory - Caffeine Use Caffeine Use: Reports: None - Recreational Drug Use Recreational Drug Use: No - Living Situation & Occupation Living situation: Reports: Occupation: Employed Review of Systems - Review of Systems Review Of Systems: See Below Constitutional: Reports: No Symptoms. Denies: Chills, Fever Eyes: Reports: No Symptoms Ears: Reports: No Symptoms Nose: Reports: No Symptoms Mouth/Throat: Reports: No Symptoms Respiratory: Reports: No Symptoms Cardiovascular: Reports: Lightheadedness GI/Abdominal: Reports: No Symptoms Genitourinary: Reports: No Symptoms Musculoskeletal: Reports: No Symptoms Skin: Reports: No Symptoms Neurological: Reports: No Symptoms ED EXAM, GENERAL - Physical Exam Exam: See Below Exam Limited By: No Limitations General Appearance: Alert, No Apparent Distress Respiratory/Chest: No Respiratory Distress, Lungs Clear, Normal Breath Sounds Cardiovascular: Regular Rate, Rhythm, No Edema, No Murmur GI/Abdominal: Normal Bowel Sounds, Soft, Non-Tender, No Organomegaly Back Exam: Normal Inspection. No: CVA Tenderness (L), CVA Tenderness (R) Extremities: Other (Patient's lower extremities show left great toe that is a little erythematous a little bit swollen not horribly tender he has marked swelling and tenderness involving the metatarsal-phalangeal joints of the second and third toes may be been the fourth ray. This is the most tender area at this point there is no warmth associated with that she has some swelling and mild redness) Course - Vital Signs Last Recorded V/S: Last Vital Signs Temp 36.6 C 02/07/18 19:49 Pulse 62 02/07/18 19:49 Resp 16 02/07/18 19:49 BP 155/105 H 02/07/18 19:49 Pulse Ox 100 02/07/18 19:49 - Orders/Labs/Meds Labs: Laboratory Tests 02/07/18 02/07/18 Range/Units 20:28 20:28 WBC 8.39 (4.23-9.07) K/mm3 RBC 5.01 (4.63-6.08) M/mm3 Hgb 15.2 (13.7-17.5) gm/L Hct 44.9 (40.1-51.0) % MCV 89.6 (79.0-92.2) fl MCH 30.3 (25.7-32.2) pg MCHC 33.9 (32.2-35.5) g/dl RDW Std Deviation 41.8 (35.1-43.9) fL Plt Count 276 (163-337) K/mm3 MPV 9.2 L (9.4-12.3) fl Neutrophils % (Manual) 53 (40-60) % Band Neutrophils % 0 (0-10) % Lymphocytes % (Manual) 34 (20-40) % Atypical Lymphs % 0 % Monocytes % (Manual) 12 H (2-10) % Eosinophils % (Manual) 1 (0.8-7.0) % Basophils % (Manual) 0 L (0.2-1.2) Platelet Estimate Adequate Plt Morphology Comment Normal RBC Morph Comment Normal Sodium 137 (136-145) mEq/L Potassium 3.9 (3.5-5.1) mEq/L Chloride 102 (98-107) mEq/L Carbon Dioxide 26 (21-32) mEq/L Anion Gap 12.9 (5-15) BUN 15 (7-18) mg/dL Creatinine 1.4 H (0.7-1.3) mg/dL Est Cr Clr Drug Dosing 62.36 mL/min Estimated GFR (MDRD) 52 (>60) mL/min BUN/Creatinine Ratio 10.7 L (14-18) Glucose 111 H (74-106) mg/dL Uric Acid 4.1 (3.5-7.2) mg/dL Calcium 8.6 (8.5-10.1) mg/dL Meds: Medications Discontinued Medications Generic Name Dose Route Start Last Admin Trade Name Freq PRN Reason Stop Dose Admin Ketorolac Tromethamine 15 mg 02/07/18 20:43 02/07/18 20:48 Toradol IVPUSH 02/07/18 20:44 15 mg ONETIME ONE Administration Methylprednisolone Sodium Succinate 125 mg 02/07/18 20:27 02/07/18 20:38 Solu-Medrol IVPUSH 02/07/18 20:28 125 mg ONETIME ONE Administration - Re-Assessments/Exams Free Text/Narrative Re-Assessment/Exam: 02/07/18 21:37 For evaluation was done which showed a uric acid that is at the upper side of normal at 4.1 certainly can precipitate this gouty crystals with a range of 3. At this point he'll be started on Solu-Medrol 125 mg here in the emergency room and 15 mg of Toradol IV the patient did get great relief with this and wants to go home Departure - Departure Time of Disposition: 21:38 Disposition: Home, Self-Care 01 Clinical Impression: Gout attack - Discharge Information Prescriptions: predniSONE [Prednisone] 40 mg PO QAM #10 tablet Referrals: Vasquez Delarosa Jr, MD [Primary Care Provider] - Forms: ED Department Discharge Additional Instructions: Return to emergency room if any questions problems worsening symptoms. Follow-up with your regular doctor the middle this next week. Have him recheck your INR as the prednisone can mess with this Continue the ibuprofen. Take the prednisone as directed for 5 days then stop.
[2018-02-07] MEDS ORDERED: methylPREDNISolone Sodium Succinate 125 MG/2 ML SDV IVPUSH ONE (20:27)
[2018-02-07] MEDS ORDERED: Ketorolac 15 MG/ML SDV IVPUSH ONE (20:43)
== END 2018-02-07 21:49 | disposition home or self-care (01) ==
LOC: JD.ED 19:40
DX: M10.9 Gout, unspecified (principal); I10 Essential (primary) hypertension; I48.91 Unspecified atrial fibrillation; Z79.899 Other long term (current) drug therapy
CPT/HCPCS: 36415; 80048; 84550; 85007; 85027; 96374; 96375; 99283; J1885; J2930

== ENCOUNTER 2020-05-26 05:25 | Emergency (ER) | payer MEDICAID ==
[2020-05-26 05:42] VITALS: BP 125/113; PULSE 48
[2020-05-26] MEDS ORDERED: predniSONE 20 MG Tab PO STA (06:03)
[2020-05-26] MEDS ORDERED: Colchicine 0.6 MG Tab PO ONE (06:03)
[2020-05-26] MEDS ORDERED: HYDROmorphone 1 MG/ML Syringe IM ONE (06:04)
--- NOTE | 2020-05-26 06:12 | EDM.PDOC ---
ED HPI GENERAL MEDICAL PROBLEM - General Chief Complaint: General Stated Complaint: GOUT-HANDS/ELBOW/FEET Time Seen by Provider: 05/26/20 05:50 Source of Information: Reports: Patient History Limitations: Reports: No Limitations - History of Present Illness INITIAL COMMENTS - FREE TEXT/NARRATIVE: Mr. Sheehan is a very pleasant 60-year-old gentleman with a past medical history significant for suspected gout, who now presents with pain and swelling to the fingers of both of his hands, and both elbows, along with less significant pain and swelling to his left great toe and right ankle, for the past 4 days. He states that he ordinarily takes colchicine 1 to 2 tablets/day, and that he has been taking that for the past year, but that he ran out 2 days ago. No recent fever. Here in the ED, the patient's initial BP is found to be mildly elevated at 125/113, with bradycardia of 48. He is afebrile, saturating 92% on room air. Other than his chronic/recurrent joint pains, the patient denies having a recent fever, chills, sore throat, ear pain, nasal or sinus congestion, cough, dyspnea, chest pain, palpitations, nausea, vomiting, constipation, diarrhea, abdominal pain, urinary symptoms, recent weight gain or weight loss, recent bloody bowel movements or black bowel movements, headaches, or rashes. The patient's PCP is Dr. Vasquez Delarosa. The patient states that he expects to follow-up with Dr. Delarosa within the next couple of days. Hand Pain Score (Numeric/FACES): 10 - Related Data Allergies Allergy/AdvReac Type Severity Reaction Status Date / Time No Known Allergies Allergy Verified 05/26/20 05:43 Home Meds: Home Meds Metoprolol Tartrate 50 mg PO BID 10/18/16 [History] Hydrocodone/Acetaminophen [Vicodin 5-300 mg Tablet] 300 mg PO BID PRN 07/16/17 [History] Colchicine 1 tab PO Q12H #10 tablet 05/26/20 [Rx] predniSONE [Prednisone] 1 tab PO QAM #5 tablet 05/26/20 [Rx] Past Medical History Cardiovascular History: Reports: Afib (paroxysmal x 2014, untreated), Heart Failure, High Cholesterol, Hypertension Musculoskeletal History: Reports: Fracture (neck), Gout (suspected, not confirmed by aspiration) Psychiatric History: Reports: Addiction (alcohol) Endocrine/Metabolic History: Reports: Hypothyroidism (untreated) - Past Surgical History Cardiovascular Surgical History: Reports: Other (See Below) (coronary angiiogram around 2018 -> clean) Neurological Surgical History: Reports: C-Spine (halo) Musculoskeletal Surgical History: Reports: Arthroscopic Knee (left), Other (See Below) (Right Achilles tendon repair) Social & Family History - Family History Family Medical History: Noncontributory - Tobacco Use Tobacco Use Status *Q: Never Tobacco User - Caffeine Use Caffeine Use: Reports: Coffee - Alcohol Use Alcohol Use History: Yes Date/Time of Last Drink Comment: Sober x late 2018 Alcohol Use Frequency: Binges - Recreational Drug Use Recreational Drug Use: Yes Drug Use in Last 12 Months: No Recreational Drug Type: Reports: Marijuana/Hashish (last smoked 1997) - Living Situation & Occupation Living situation: Reports: Single, Alone Occupation: Employed (farm truck driver) ED ROS GENERAL - Review of Systems Review Of Systems: Comprehensive ROS is negative, except as noted in HPI. ED EXAM, GENERAL - Physical Exam Exam: See Below Exam Limited By: No Limitations General Appearance: Alert, WD/WN, No Apparent Distress Extremities: Other (The fingers of both hands are swollen and mildly erythematous at the joints. They are warm and tender to palpation. There are large tophi on the extensor surfaces of both elbows. No visible abnormality, tenderness, or pain with PROM to the left great toe. Minimal, if any, swelling to the right ankle, with no increased calor or erythema. No apparent pain to PROM of the right ankle. Neurovascular status of all extremities appears to be intact.) Course - Vital Signs Last Recorded V/S: Last Vital Signs Temp 36.6 C 05/26/20 05:35 Pulse 48 L 05/26/20 05:35 Resp 18 05/26/20 05:35 BP 125/113 H 05/26/20 05:35 Pulse Ox 92 L 05/26/20 05:35 - Orders/Labs/Meds Meds: Medications Discontinued Medications Generic Name Dose Route Start Last Admin Trade Name Freq PRN Reason Stop Dose Admin Colchicine 0.6 mg 05/26/20 06:03 05/26/20 06:12 Colcrys PO 05/26/20 06:04 0.6 mg ONETIME ONE Administration Hydromorphone HCl 1 mg 05/26/20 06:04 05/26/20 06:12 Dilaudid IM 05/26/20 06:05 1 mg ONETIME ONE Administration Prednisone 40 mg 05/26/20 06:03 05/26/20 06:12 Prednisone PO 05/26/20 06:04 40 mg ONETIME STA Administration - Re-Assessments/Exams Free Text/Narrative Re-Assessment/Exam: 05/26/20 06:07 As above, the patient has a history of suspected gout, with large tophi on both of his elbows, with pain and swelling to the fingers of both of his hands, both of his elbows, and mild pain and swelling to his left great toe and right ankle for the past 4 days. He states that he ran out of his colchicine, that he ordinarily takes once or twice a day, 2 days ago. I will start him on both colchicine and prednisone here in the ED, and submit prescriptions for both to [facility] for 5 days. The patient states that he will be able to follow-up with his PCP in the next couple of days. He also asked for a shot of something strong, stating that Toradol does not work for him. I therefore ordered an IM injection of Dilaudid. The patient already has Percocet at home. Departure - Departure Time of Disposition: 06:09 Disposition: Home, Self-Care 01 Condition: Good Clinical Impression: Gout flare - Discharge Information *PRESCRIPTION DRUG MONITORING PROGRAM REVIEWED*: Not Applicable *COPY OF PRESCRIPTION DRUG MONITORING REPORT IN PATIENT JOMAR: Not Applicable Prescriptions: Colchicine 1 tab PO Q12H #10 tablet predniSONE [Prednisone] 1 tab PO QAM #5 tablet Referrals: Vasquez Delarosa Jr, MD [Primary Care Provider] - Igor Lehman MD [Physician] - Forms: ED Department Discharge Additional Instructions: You were seen in the emergency room for pain and swelling of the fingers of both of your hands, both your elbows, with less significant pain and swelling to your left big toe and right ankle, for the past 4 days. Based on your history and physical examination, you are most likely suffering from a flare of gout, however, other possibilities, including pseudogout, are possible. You have been started on colchicine and prednisone, and given an injection of Dilaudid. Prescriptions for colchicine and prednisone have been sent to the [facility], located in the [place] [facility]. Take 1 tablet of colchicine every 12 hours, starting this evening, 05/26/2020, as prescribed. Take 1 tablet of prednisone every morning, starting tomorrow morning, 05/27/2020, as prescribed. It is very important that you follow-up with your PCP, Dr. Vasquez Delarosa, this week. We strongly recommend that you follow-up with the Orthopedic Surgeon Dr. Igor Lehman, in order to undergo appropriate studies to determine if it is gout versus some other etiology that you are suffering from. With a proper diagnosis, you can receive the best treatment. If any other problems, please do not hesitate to return to the ER. Sepsis Event Note (ED) - Evaluation Sepsis Screening Result: No Definite Risk - Focused Exam Vital Signs: Vital Signs Temp Pulse Resp BP Pulse Ox 05/26/20 05:35 36.6 C 48 L 18 125/113 H 92 L
== END 2020-05-26 06:27 | disposition home or self-care (01) ==
LOC: JD.ED 05:25
DX: M10.9 Gout, unspecified (principal); I48.91 Unspecified atrial fibrillation; I11.0 Hypertensive heart disease with heart failure; I50.9 Heart failure, unspecified; Z79.899 Other long term (current) drug therapy
CPT/HCPCS: 96372; 99283; A9270; J1170; J7512

== ENCOUNTER 2023-07-31 10:31 | Inpatient (IN) | payer MEDICARE, MEDICAID ==
[2023-07-31] MEDS ORDERED: Sodium Chloride 0.9% 10 ML Syringe FLUSH PRN (10:36)
[2023-07-31] MEDS ORDERED: Diltiazem 25 MG/5 ML SDV IVPUSH ONE (10:51)
[2023-07-31 11:00] LABS: BASOPHILS PERCENT AUTO 0.4 % (0.0-1.0); EOSINOPHILS PERCENT AUTO 0.4 % (0.0-6.0); HEMATOCRIT 48.6 % (42.0-52.0); HEMOGLOBIN 16.2 gm/dl (14.0-18.0); IMMATURE GRAN ABSOLUTE AUTO 0.04 K/mm3 (0.00-0.05); IMMATURE GRAN PERCENT AUTO 0.4 % (0.0-0.4); LYMPHOCYTES ABSOLUTE AUTO 3.1 K/mm3 (1.0-4.8); LYMPHOCYTES PERCENT AUTO 31.9 % (24.0-44.0); MEAN CORPUSCULAR HEMOGLOBIN 30.8 pg (28.0-32.0); MEAN CORPUSCULAR HGB CONC 33.3 g/dl (32.0-36.0); MEAN CORPUSCULAR VOLUME 92.4 fl (83.0-99.0); MEAN PLATELET VOLUME 9.3 fl (9.4-12.4); MONOCYTES ABSOLUTE AUTO 0.6 K/mm3 (0.0-0.8); MONOCYTES PERCENT AUTO 5.9 % (0.0-8.0); NEUTROPHILS ABSOLUTE AUTO 5.9 K/mm3 (1.8-7.7); PLATELET COUNT,PLT 300 K/mm3 (150-400); RED BLOOD CELL COUNT 5.26 M/mm3 (4.52-5.90)
[2023-07-31 11:12] LABS: APPEARANCE,URINE CLEAR (Clear); BILIRUBIN,URINE NEGATIVE (Negative); COLOR,URINE YELLOW (Yellow); GLUCOSE,URINE NEGATIVE (Negative); KETONES,URINE NEGATIVE (Negative); LEUKOCYTE ESTERASE,URINE NEGATIVE (Negative); NITRITE,URINE NEGATIVE (Negative); OCCULT BLOOD,URINE TRACE-INTACT (Negative); PROTEIN,URINE 2+ (Negative); UROBILINOGEN,URINE 0.2 (0.2-1.0)
[2023-07-31 11:28] LABS: A/G RATIO 0.9 (1-2); ANION GAP 18.9 (5-15); BILIRUBIN TOTAL 1.4 mg/dL (0.2-1.0); BUN/CREATININE RATIO 9.3 (14-18); CALCIUM 9.5 mg/dL (8.5-10.1); CREATININE 1.4 mg/dL (0.7-1.3); EST CRCL DRUG DOSING (CG) 56.03 mL/min; POTASSIUM,K 3.9 mEq/L (3.5-5.1); PROTEIN TOTAL,TP 8.5 g/dl (6.4-8.2)
[2023-07-31] MEDS ORDERED: Bumetanide 1 MG/4 ML MDV IVPUSH ONE (11:30)
[2023-07-31] MEDS ORDERED: Diltiazem 180 MG Cap.CD PO ONE (11:30)
[2023-07-31 11:36] LABS: RBC,URINE 0-5 /hpf (0-5); WBC,URINE 0-5 /hpf (0-5)
[2023-07-31 11:37] LABS: BACTERIA,URINE FEW /hpf (FEW); MUCUS,URINE FEW /hpf (FEW); SQUAMOUS EPITHELIAL CELLS,UR 0-5 /hpf (0-5)
[2023-07-31] MEDS ORDERED: Ondansetron 4 MG Tab.DIS PO PRN (14:43)
[2023-07-31] MEDS ORDERED: Docusate Sodium 100 MG Cap PO PRN (14:43)
[2023-07-31] MEDS ORDERED: Acetaminophen 325 MG Tab PO PRN (14:43)
[2023-07-31] MEDS ORDERED: Naloxone 0.4 MG/ML SDV IVPUSH PRN (15:53)
[2023-07-31] MEDS ORDERED: HYDROmorphone 1 MG/ML Syringe IVPUSH ONE (16:00)
[2023-07-31] MEDS: Sodium Chloride 0.9% 1,000 ML IV SCH (16:13)
[2023-07-31] MEDS: Diltiazem 125 MG in Sodium Chloride 0.9% 100 ML IV SCH (16:13)
[2023-07-31] MEDS: oxyCODONE 5 MG Tab PO PRN ×2 (16:18→20:28)
[2023-07-31] MEDS: Colchicine 0.6 MG Tab PO SCH ×2 (16:18→20:28)
[2023-07-31] MEDS: HYDROmorphone 1 MG/ML Syringe IVPUSH PRN (20:21)
[2023-07-31] MEDS: Apixaban 5 MG Tab PO SCH (20:28)
[2023-08-01] MEDS: oxyCODONE 5 MG Tab PO PRN ×2 (00:22→04:34)
[2023-08-01] MEDS: HYDROmorphone 1 MG/ML Syringe IVPUSH PRN ×7 (00:23→20:28)
[2023-08-01] MEDS: Sodium Chloride 0.9% 1,000 ML IV SCH (04:47)
[2023-08-01] MEDS: Benzocaine/Cetylpyridinium/Menthol Lozenge MUCMEM PRN ×3 (05:02→21:31)
[2023-08-01 05:37] LABS: BASOPHILS ABSOLUTE AUTO 0.1 K/mm3 (0.0-0.2); BASOPHILS PERCENT AUTO 0.6 % (0.0-1.0); EOSINOPHILS ABSOLUTE AUTO 0.1 K/mm3 (0.0-0.4); EOSINOPHILS PERCENT AUTO 1.1 % (0.0-6.0); HEMATOCRIT 41.9 % (42.0-52.0); IMMATURE GRAN ABSOLUTE AUTO 0.04 K/mm3 (0.00-0.05); IMMATURE GRAN PERCENT AUTO 0.5 % (0.0-0.4); LYMPHOCYTES ABSOLUTE AUTO 3.1 K/mm3 (1.0-4.8); LYMPHOCYTES PERCENT AUTO 38.9 % (24.0-44.0); MEAN CORPUSCULAR HEMOGLOBIN 31.6 pg (28.0-32.0); MEAN CORPUSCULAR HGB CONC 33.9 g/dl (32.0-36.0); MEAN CORPUSCULAR VOLUME 93.3 fl (83.0-99.0); MEAN PLATELET VOLUME 9.9 fl (9.4-12.4); MONOCYTES ABSOLUTE AUTO 0.7 K/mm3 (0.0-0.8); MONOCYTES PERCENT AUTO 8.4 % (0.0-8.0); NEUTROPHILS PERCENT AUTO 50.5 % (41.0-71.0); PLATELET COUNT,PLT 254 K/mm3 (150-400); RED BLOOD CELL COUNT 4.49 M/mm3 (4.52-5.90); WHITE BLOOD CELL COUNT,WBC 7.86 K/mm3 (3.9-11.3)
[2023-08-01 05:41] LABS: HEMOGLOBIN 14.2 gm/dl (14.0-18.0)
[2023-08-01 06:04] LABS: A/G RATIO 0.9 (1-2); ALBUMIN 3.3 g/dl (3.4-5.0); ANION GAP 12.4 (5-15); BUN/CREATININE RATIO 13.1 (14-18); CALCIUM 8.8 mg/dL (8.5-10.1); CREATININE 1.3 mg/dL (0.7-1.3); EST CRCL DRUG DOSING (CG) 60.34 mL/min; MAGNESIUM 1.7 mg/dL (1.8-2.4); POTASSIUM,K 3.4 mEq/L (3.5-5.1)
[2023-08-01] MEDS: Diltiazem 125 MG in Sodium Chloride 0.9% 100 ML IV SCH (07:28)
[2023-08-01] MEDS: Allopurinol 300 MG Tab PO SCH (07:59)
[2023-08-01] MEDS: Metoprolol Tartrate 50 MG Tab PO SCH ×2 (07:59→19:13)
[2023-08-01] MEDS: Apixaban 5 MG Tab PO SCH ×2 (08:00→20:29)
[2023-08-01] MEDS: Colchicine 0.6 MG Tab PO SCH ×2 (08:00→20:29)
[2023-08-01] MEDS ORDERED: Colchicine 0.6 MG Tab PO SCH (09:00)
[2023-08-01] MEDS ORDERED: APIXABAN 5 MG PO SCH (09:00)
[2023-08-02] MEDS ORDERED: Apixaban 5 MG Tab PO SCH
[2023-08-02] MEDS ORDERED: Metoprolol Tartrate 50 MG Tab PO SCH
[2023-08-02] MEDS: HYDROmorphone 1 MG/ML Syringe IVPUSH PRN ×5 (00:28→17:05)
[2023-08-02] MEDS: Benzocaine/Cetylpyridinium/Menthol Lozenge MUCMEM PRN ×2 (05:07→11:19)
[2023-08-02 05:30] LABS: BASOPHILS PERCENT AUTO 0.6 % (0.0-1.0); EOSINOPHILS ABSOLUTE AUTO 0.1 K/mm3 (0.0-0.4); EOSINOPHILS PERCENT AUTO 1.7 % (0.0-6.0); HEMATOCRIT 39.6 % (42.0-52.0); HEMOGLOBIN 13.4 gm/dl (14.0-18.0); IMMATURE GRAN ABSOLUTE AUTO 0.05 K/mm3 (0.00-0.05); IMMATURE GRAN PERCENT AUTO 0.7 % (0.0-0.4); LYMPHOCYTES ABSOLUTE AUTO 2.5 K/mm3 (1.0-4.8); MEAN CORPUSCULAR HEMOGLOBIN 30.8 pg (28.0-32.0); MEAN CORPUSCULAR HGB CONC 33.8 g/dl (32.0-36.0); MEAN PLATELET VOLUME 10.2 fl (9.4-12.4); MONOCYTES ABSOLUTE AUTO 0.6 K/mm3 (0.0-0.8); MONOCYTES PERCENT AUTO 8.9 % (0.0-8.0); NEUTROPHILS ABSOLUTE AUTO 3.8 K/mm3 (1.8-7.7); NEUTROPHILS PERCENT AUTO 53.1 % (41.0-71.0); PLATELET COUNT,PLT 233 K/mm3 (150-400); RED BLOOD CELL COUNT 4.35 M/mm3 (4.52-5.90); WHITE BLOOD CELL COUNT,WBC 7.21 K/mm3 (3.9-11.3)
[2023-08-02] MEDS ORDERED: guaiFENesin/Dextromethorphan 100-10 MG/5 ML Soln 5 ML Cup PO PRN (05:31)
[2023-08-02 05:50] LABS: ANION GAP 16.9 (5-15); BUN/CREATININE RATIO 16.4 (14-18); CALCIUM 8.5 mg/dL (8.5-10.1); CREATININE 1.1 mg/dL (0.7-1.3); EST CRCL DRUG DOSING (CG) 71.31 mL/min; MAGNESIUM 1.9 mg/dL (1.8-2.4); POTASSIUM,K 3.9 mEq/L (3.5-5.1)
[2023-08-02] MEDS: Metoprolol Tartrate 50 MG Tab PO SCH (07:12)
[2023-08-02] MEDS: Allopurinol 300 MG Tab PO SCH (08:39)
[2023-08-02] MEDS: Colchicine 0.6 MG Tab PO SCH (08:39)
[2023-08-02] MEDS: Apixaban 5 MG Tab PO SCH (08:40)
[2023-08-02] MEDS ORDERED: Diltiazem 180 MG Cap.CD PO SCH ×2 (09:00)
[2023-08-02 20:03] VITALS: BP 124/94; PULSE 104
== END 2023-08-02 20:00 | disposition home or self-care (01) | DRG 310 ==
LOC: JD.ED 10:31 → JD.ICU 14:40
PROVIDERS: ADMIT Internal Medicine; ATTEND Internal Medicine
DX: I48.91 Unspecified atrial fibrillation (principal); I48.0 Paroxysmal atrial fibrillation; I11.0 Hypertensive heart disease with heart failure; I50.9 Heart failure, unspecified; M1A.9XX1 Chronic gout, unspecified, with tophus (tophi); M10.9 Gout, unspecified; I50.811 Acute right heart failure; E78.00 Pure hypercholesterolemia, unspecified; E03.9 Hypothyroidism, unspecified; Z79.01 Long term (current) use of anticoagulants; Z79.899 Other long term (current) drug therapy; Z87.81 Personal history of (healed) traumatic fracture; Z98.890 Other specified postprocedural states; Z91.141 Patient's other noncompliance with medication regimen due to financial hardship
CPT/HCPCS: 36415; 71046; 80053; 81001; 83735; 83880; 84484; 84550; 85025; 93005 ×2; 96374; 96375; 99285; A9270; J3490 ×3; 80048; J1170; J7030

== ENCOUNTER 2023-08-18 23:05 | Emergency (ER) | payer MEDICARE, MEDICAID ==
[2023-08-18] MEDS ORDERED: Furosemide 40 MG/4 ML VIAL IVPUSH ONE (23:34)
[2023-08-18] MEDS ORDERED: HYDROmorphone 1 MG/ML Syringe IVPUSH ONE (23:34)
[2023-08-18] MEDS ORDERED: methylPREDNISolone Sodium Succinate 125 MG/2 ML SDV IVPUSH ONE (23:35)
[2023-08-18] MEDS ORDERED: Diltiazem 25 MG/5 ML SDV IVPUSH ONE (23:37)
[2023-08-19 00:06] LABS: BASOPHILS ABSOLUTE AUTO 0.1 K/mm3 (0.0-0.2); BASOPHILS PERCENT AUTO 0.7 % (0.0-1.0); EOSINOPHILS ABSOLUTE AUTO 0.1 K/mm3 (0.0-0.4); EOSINOPHILS PERCENT AUTO 0.8 % (0.0-6.0); HEMATOCRIT 48.9 % (42.0-52.0); HEMOGLOBIN 16.1 gm/dl (14.0-18.0); IMMATURE GRAN ABSOLUTE AUTO 0.06 K/mm3 (0.00-0.05); IMMATURE GRAN PERCENT AUTO 0.6 % (0.0-0.4); LYMPHOCYTES ABSOLUTE AUTO 3.1 K/mm3 (1.0-4.8); LYMPHOCYTES PERCENT AUTO 30.9 % (24.0-44.0); MEAN CORPUSCULAR HEMOGLOBIN 31.1 pg (28.0-32.0); MEAN CORPUSCULAR HGB CONC 32.9 g/dl (32.0-36.0); MEAN CORPUSCULAR VOLUME 94.6 fl (83.0-99.0); MEAN PLATELET VOLUME 9.9 fl (9.4-12.4); MONOCYTES ABSOLUTE AUTO 0.6 K/mm3 (0.0-0.8); NEUTROPHILS ABSOLUTE AUTO 6.1 K/mm3 (1.8-7.7); PLATELET COUNT,PLT 272 K/mm3 (150-400); RED BLOOD CELL COUNT 5.17 M/mm3 (4.52-5.90); WHITE BLOOD CELL COUNT,WBC 10.01 K/mm3 (3.9-11.3)
[2023-08-19 00:16] LABS: INR 1.4; PROTHROMBIN TIME 14.6 SECONDS (9.7-12.0)
[2023-08-19 00:17] LABS: PTT,PARTIAL THROMBOPLSTIN TIME 31.6 SECONDS (21.7-31.4)
[2023-08-19 00:23] LABS: APPEARANCE,URINE CLEAR (Clear); BACTERIA,URINE FEW /hpf (FEW); BILIRUBIN,URINE 1+ (Negative); COLOR,URINE YELLOW (Yellow); EPITHELIAL CELLS,URINE 0-5 /hpf (0-5); GLUCOSE,URINE NEGATIVE (Negative); HYALINE CASTS,URINE 20-30 /lpf (0-5); KETONES,URINE NEGATIVE (Negative); LEUKOCYTE ESTERASE,URINE NEGATIVE (Negative); MUCUS,URINE MODERATE /hpf (FEW); NITRITE,URINE NEGATIVE (Negative); OCCULT BLOOD,URINE NEGATIVE (Negative); PH,URINE 5.5 (5.0-8.0); PROTEIN,URINE 1+ (Negative); RBC,URINE 0-5 /hpf (0-5); UROBILINOGEN,URINE 0.2 (0.2-1.0); WBC,URINE 0-5 /hpf (0-5)
[2023-08-19 00:29] LABS: ANION GAP 16.3 (5-15); BILIRUBIN TOTAL 0.9 mg/dL (0.2-1.0); C-REACTIVE PROTEIN 1.8 mg/dL (<1.0); CREATININE 1.4 mg/dL (0.7-1.3); EST CRCL DRUG DOSING (CG) 56.03 mL/min; MAGNESIUM 2.2 mg/dL (1.8-2.4); POTASSIUM,K 4.3 mEq/L (3.5-5.1); URIC ACID 7.6 mg/dL (3.5-7.2)
[2023-08-19] MEDS ORDERED: HYDROmorphone 1 MG/ML Syringe IVPUSH ONE ×2 (05:00→10:00)
[2023-08-19] MEDS ORDERED: Furosemide 40 MG/4 ML VIAL IVPUSH ONE (05:00)
[2023-08-19] MEDS ORDERED: Metoprolol Tartrate 50 MG Tab PO ONE (05:15)
[2023-08-19] MEDS ORDERED: methylPREDNISolone Sodium Succinate 125 MG/2 ML SDV IVPUSH ONE (05:16)
[2023-08-19 05:20] VITALS: PULSE 99
[2023-08-19] MEDS ORDERED: Diltiazem 240 MG Cap.ER PO ONE (07:06)
[2023-08-19] MEDS ORDERED: Diltiazem 25 MG/5 ML SDV IVPUSH ONE (09:43)
[2023-08-19 10:35] VITALS: BP 122/94
== END 2023-08-19 10:32 | disposition home or self-care (01) ==
LOC: JD.ED 23:05
DX: I50.9 Heart failure, unspecified (principal); I48.91 Unspecified atrial fibrillation; M10.09 Idiopathic gout, multiple sites; Z79.899 Other long term (current) drug therapy; Z79.83 Long term (current) use of bisphosphonates
CPT/HCPCS: 36415; 71045; 80053; 81001; 83735; 83880; 84484; 84550; 85025; 85610; 85652; 85730; 86140; 93005; 96374; 96375; 96376; 99285; A9270; J1170; J1940; J2930; J3490; 93010

== ENCOUNTER 2023-12-13 22:52 | Inpatient (IN) | payer MEDICARE, MEDICAID ==
[2023-12-13 23:09] LABS: BASOPHILS ABSOLUTE AUTO 0.1 K/mm3 (0.0-0.2); BASOPHILS PERCENT AUTO 0.5 % (0.0-1.0); EOSINOPHILS PERCENT AUTO 0.1 % (0.0-6.0); HEMATOCRIT 48.7 % (42.0-52.0); HEMOGLOBIN 16.1 gm/dl (14.0-18.0); IMMATURE GRAN ABSOLUTE AUTO 0.04 K/mm3 (0.00-0.05); IMMATURE GRAN PERCENT AUTO 0.4 % (0.0-0.4); LYMPHOCYTES ABSOLUTE AUTO 1.3 K/mm3 (1.0-4.8); LYMPHOCYTES PERCENT AUTO 11.5 % (24.0-44.0); MEAN CORPUSCULAR HEMOGLOBIN 30.4 pg (28.0-32.0); MEAN CORPUSCULAR HGB CONC 33.1 g/dl (32.0-36.0); MEAN CORPUSCULAR VOLUME 91.9 fl (83.0-99.0); MEAN PLATELET VOLUME 9.4 fl (9.4-12.4); MONOCYTES ABSOLUTE AUTO 0.7 K/mm3 (0.0-0.8); MONOCYTES PERCENT AUTO 6.2 % (0.0-8.0); NEUTROPHILS ABSOLUTE AUTO 9.3 K/mm3 (1.8-7.7); NEUTROPHILS PERCENT AUTO 81.3 % (41.0-71.0); PLATELET COUNT,PLT 226 K/mm3 (150-400)
[2023-12-13 23:27] LABS: INR 1.35; PROTHROMBIN TIME 14.1 SECONDS (9.7-12.0)
[2023-12-13 23:39] LABS: A/G RATIO 1.2 (1-2); ALBUMIN 3.8 g/dl (3.4-5.0); ANION GAP 12.3 (5-15); BILIRUBIN TOTAL 2.1 mg/dL (0.2-1.0); BUN/CREATININE RATIO 17.9 (14-18); CALCIUM 9.3 mg/dL (8.5-10.1); CREATININE 1.4 mg/dL (0.7-1.3); EST CRCL DRUG DOSING (CG) 52.6 mL/min; POTASSIUM,K 4.3 mEq/L (3.5-5.1); PROTEIN TOTAL,TP 7.1 g/dl (6.4-8.2)
[2023-12-13] MEDS: Furosemide 20 MG/2 ML VIAL IVPUSH ONE (23:58)
[2023-12-14] MEDS: Morphine 4 MG/ML Syringe IVPUSH ONE (00:02)
[2023-12-14] MEDS: Morphine 2 MG/ML SYRINGE IVPUSH ONE (05:05)
[2023-12-14 08:12] LABS: INR 1.34
[2023-12-14] MEDS: Metoprolol Succinate 50 MG Tab.ER PO SCH (08:25)
[2023-12-14] MEDS: Allopurinol 100 MG Tab PO SCH (08:26)
[2023-12-14] MEDS: Diltiazem IR 60 MG Tab PO SCH (08:26)
[2023-12-14] MEDS: Furosemide 40 MG Tab PO SCH (08:26)
[2023-12-14] MEDS: Colchicine 0.6 MG Tab PO SCH (08:52)
[2023-12-14] MEDS: Morphine 2 MG/ML SYRINGE IVPUSH PRN (10:48)
[2023-12-14] MEDS: Warfarin 5 MG Tab PO SCH (17:41)
[2023-12-14] MEDS: Heparin Sodium 5,000 Units/ML Vial IVPUSH ONE (17:45)
[2023-12-14] MEDS: Heparin Sodium/D5W 25,000 UNITS/500 ML BAG IV SCH (17:46)
[2023-12-15 06:56] LABS: BASOPHILS ABSOLUTE AUTO 0.1 K/mm3 (0.0-0.2); BASOPHILS PERCENT AUTO 0.4 % (0.0-1.0); EOSINOPHILS ABSOLUTE AUTO 0.1 K/mm3 (0.0-0.4); EOSINOPHILS PERCENT AUTO 0.9 % (0.0-6.0); HEMATOCRIT 46.2 % (42.0-52.0); HEMOGLOBIN 15.3 gm/dl (14.0-18.0); IMMATURE GRAN ABSOLUTE AUTO 0.08 K/mm3 (0.00-0.05); IMMATURE GRAN PERCENT AUTO 0.7 % (0.0-0.4); LYMPHOCYTES ABSOLUTE AUTO 3.7 K/mm3 (1.0-4.8); LYMPHOCYTES PERCENT AUTO 31.9 % (24.0-44.0); MEAN CORPUSCULAR HEMOGLOBIN 30.4 pg (28.0-32.0); MEAN CORPUSCULAR HGB CONC 33.1 g/dl (32.0-36.0); MEAN CORPUSCULAR VOLUME 91.7 fl (83.0-99.0); MEAN PLATELET VOLUME 9.6 fl (9.4-12.4); MONOCYTES ABSOLUTE AUTO 0.9 K/mm3 (0.0-0.8); MONOCYTES PERCENT AUTO 7.8 % (0.0-8.0); NEUTROPHILS ABSOLUTE AUTO 6.8 K/mm3 (1.8-7.7); NEUTROPHILS PERCENT AUTO 58.3 % (41.0-71.0); PLATELET COUNT,PLT 199 K/mm3 (150-400); RED BLOOD CELL COUNT 5.04 M/mm3 (4.52-5.90)
[2023-12-15 07:34] LABS: A/G RATIO 0.9 (1-2); ALBUMIN 3.2 g/dl (3.4-5.0); BILIRUBIN TOTAL 1.7 mg/dL (0.2-1.0); BUN/CREATININE RATIO 13.3 (14-18); CALCIUM 9.1 mg/dL (8.5-10.1); CREATININE 1.5 mg/dL (0.7-1.3); EST CRCL DRUG DOSING (CG) 52.29 mL/min; PROTEIN TOTAL,TP 6.6 g/dl (6.4-8.2)
[2023-12-15 08:16] LABS: INR 1.26; PROTHROMBIN TIME 13.3 SECONDS (9.7-12.0)
[2023-12-15] MEDS: ALPRAZolam 0.5 MG Tab PO PRN (10:29)
[2023-12-15] MEDS: Temazepam 15 MG Cap PO PRN (22:30)
[2023-12-15] MEDS: Albuterol/Ipratropium 3.0-0.5 MG/3 ML Neb Soln NEB PRN (22:38)
[2023-12-15] MEDS: Furosemide 20 MG/2 ML VIAL IVPUSH ONE (23:35)
[2023-12-16] MEDS: cefTRIAXone 2 GM in Sodium Chloride 0.9% 100 ML IV ONE (01:39)
[2023-12-16 04:55] LABS: BASOPHILS ABSOLUTE AUTO 0.1 K/mm3 (0.0-0.2); BASOPHILS PERCENT AUTO 0.5 % (0.0-1.0); EOSINOPHILS PERCENT AUTO 0.1 % (0.0-6.0); HEMATOCRIT 46.6 % (42.0-52.0); HEMOGLOBIN 15.7 gm/dl (14.0-18.0); IMMATURE GRAN ABSOLUTE AUTO 0.11 K/mm3 (0.00-0.05); IMMATURE GRAN PERCENT AUTO 0.7 % (0.0-0.4); LYMPHOCYTES ABSOLUTE AUTO 2.3 K/mm3 (1.0-4.8); LYMPHOCYTES PERCENT AUTO 15.7 % (24.0-44.0); MEAN CORPUSCULAR HEMOGLOBIN 30.2 pg (28.0-32.0); MEAN CORPUSCULAR HGB CONC 33.7 g/dl (32.0-36.0); MEAN CORPUSCULAR VOLUME 89.6 fl (83.0-99.0); MEAN PLATELET VOLUME 10.3 fl (9.4-12.4); MONOCYTES PERCENT AUTO 6.6 % (0.0-8.0); NEUTROPHILS ABSOLUTE AUTO 11.3 K/mm3 (1.8-7.7); NEUTROPHILS PERCENT AUTO 76.4 % (41.0-71.0); PLATELET COUNT,PLT 215 K/mm3 (150-400); WHITE BLOOD CELL COUNT,WBC 14.74 K/mm3 (3.9-11.3)
[2023-12-16 05:22] LABS: INR 1.42; PROTHROMBIN TIME 14.8 SECONDS (9.7-12.0)
[2023-12-16 05:35] LABS: ALBUMIN 3.7 g/dl (3.4-5.0); ANION GAP 19.1 (5-15); BILIRUBIN TOTAL 2.6 mg/dL (0.2-1.0); BUN/CREATININE RATIO 11.4 (14-18); CALCIUM 9.6 mg/dL (8.5-10.1); CREATININE 1.4 mg/dL (0.7-1.3); EST CRCL DRUG DOSING (CG) 56.03 mL/min; POTASSIUM,K 4.1 mEq/L (3.5-5.1); PROTEIN TOTAL,TP 7.6 g/dl (6.4-8.2)
[2023-12-16] MEDS: Diltiazem IR 60 MG Tab PO SCH (08:06)
[2023-12-16] MEDS: oxyCODONE 5 MG Tab PO PRN (11:24)
[2023-12-16] MEDS: Warfarin 3 MG Tab PO SCH (17:58)
[2023-12-16] MEDS: Acetaminophen 325 MG Tab PO PRN (20:48)
[2023-12-17] MEDS: Ondansetron 4 MG Tab.DIS PO PRN (00:37)
[2023-12-17] MEDS: cefTRIAXone 2 GM in Sodium Chloride 0.9% 100 ML IV SCH (01:12)
[2023-12-17 05:24] LABS: INR 1.57; PROTHROMBIN TIME 16.2 SECONDS (9.7-12.0)
[2023-12-17 05:26] LABS: PTT,PARTIAL THROMBOPLSTIN TIME 83.8 SECONDS (21.7-31.4)
[2023-12-17 07:27] LABS: BASOPHILS ABSOLUTE AUTO 0.1 K/mm3 (0.0-0.2); BASOPHILS PERCENT AUTO 0.6 % (0.0-1.0); EOSINOPHILS ABSOLUTE AUTO 0.1 K/mm3 (0.0-0.4); HEMATOCRIT 47.1 % (42.0-52.0); HEMOGLOBIN 15.5 gm/dl (14.0-18.0); IMMATURE GRAN ABSOLUTE AUTO 0.05 K/mm3 (0.00-0.05); IMMATURE GRAN PERCENT AUTO 0.5 % (0.0-0.4); LYMPHOCYTES ABSOLUTE AUTO 2.9 K/mm3 (1.0-4.8); LYMPHOCYTES PERCENT AUTO 31.2 % (24.0-44.0); MEAN CORPUSCULAR HEMOGLOBIN 30.4 pg (28.0-32.0); MEAN CORPUSCULAR HGB CONC 32.9 g/dl (32.0-36.0); MEAN CORPUSCULAR VOLUME 92.4 fl (83.0-99.0); MEAN PLATELET VOLUME 10.4 fl (9.4-12.4); MONOCYTES ABSOLUTE AUTO 0.8 K/mm3 (0.0-0.8); NEUTROPHILS ABSOLUTE AUTO 5.3 K/mm3 (1.8-7.7); NEUTROPHILS PERCENT AUTO 57.7 % (41.0-71.0); PLATELET COUNT,PLT 190 K/mm3 (150-400); WHITE BLOOD CELL COUNT,WBC 9.26 K/mm3 (3.9-11.3)
[2023-12-17 07:40] LABS: A/G RATIO 0.8 (1-2); ALBUMIN 3.3 g/dl (3.4-5.0); ANION GAP 12.9 (5-15); BILIRUBIN TOTAL 1.7 mg/dL (0.2-1.0); BUN/CREATININE RATIO 16.9 (14-18); CALCIUM 9.6 mg/dL (8.5-10.1); CREATININE 1.3 mg/dL (0.7-1.3); EST CRCL DRUG DOSING (CG) 60.34 mL/min; POTASSIUM,K 3.9 mEq/L (3.5-5.1); PROTEIN TOTAL,TP 7.4 g/dl (6.4-8.2)
[2023-12-17] MEDS: Diltiazem IR 60 MG Tab PO SCH (08:01)
[2023-12-17] MEDS: Warfarin 7.5 MG Tab PO SCH (17:06)
[2023-12-18] MEDS: Diltiazem IR 60 MG Tab PO ONE (02:03)
[2023-12-18] MEDS: Metoprolol Succinate 50 MG Tab.ER PO ONE (02:03)
[2023-12-18 04:52] LABS: BASOPHILS PERCENT AUTO 0.4 % (0.0-1.0); EOSINOPHILS ABSOLUTE AUTO 0.1 K/mm3 (0.0-0.4); EOSINOPHILS PERCENT AUTO 1.2 % (0.0-6.0); HEMATOCRIT 42.1 % (42.0-52.0); HEMOGLOBIN 13.9 gm/dl (14.0-18.0); IMMATURE GRAN ABSOLUTE AUTO 0.08 K/mm3 (0.00-0.05); IMMATURE GRAN PERCENT AUTO 0.9 % (0.0-0.4); LYMPHOCYTES ABSOLUTE AUTO 2.3 K/mm3 (1.0-4.8); LYMPHOCYTES PERCENT AUTO 27.2 % (24.0-44.0); MEAN CORPUSCULAR HEMOGLOBIN 30.2 pg (28.0-32.0); MEAN CORPUSCULAR VOLUME 91.5 fl (83.0-99.0); MEAN PLATELET VOLUME 9.8 fl (9.4-12.4); MONOCYTES ABSOLUTE AUTO 0.7 K/mm3 (0.0-0.8); NEUTROPHILS ABSOLUTE AUTO 5.3 K/mm3 (1.8-7.7); NEUTROPHILS PERCENT AUTO 62.3 % (41.0-71.0); PLATELET COUNT,PLT 188 K/mm3 (150-400); WHITE BLOOD CELL COUNT,WBC 8.45 K/mm3 (3.9-11.3)
[2023-12-18 05:08] LABS: INR 1.66; PROTHROMBIN TIME 17.1 SECONDS (9.7-12.0)
[2023-12-18 05:31] LABS: A/G RATIO 0.8 (1-2); ALBUMIN 2.7 g/dl (3.4-5.0); ANION GAP 13.6 (5-15); BILIRUBIN TOTAL 0.8 mg/dL (0.2-1.0); BUN/CREATININE RATIO 17.5 (14-18); CALCIUM 8.6 mg/dL (8.5-10.1); CREATININE 1.2 mg/dL (0.7-1.3); EST CRCL DRUG DOSING (CG) 65.36 mL/min; POTASSIUM,K 3.6 mEq/L (3.5-5.1); PROTEIN TOTAL,TP 6.2 g/dl (6.4-8.2)
[2023-12-18] MEDS: Warfarin 7.5 MG Tab PO SCH (17:24)
[2023-12-19] MEDS ORDERED: Diltiazem 120 MG Cap.CD PO SCH
[2023-12-19] MEDS ORDERED: Metoprolol Succinate 50 MG Tab.ER PO SCH
[2023-12-19] MEDS ORDERED: Empagliflozin 10 MG Tab PO SCH
[2023-12-19 05:45] LABS: A/G RATIO 0.8 (1-2); ANION GAP 17.2 (5-15); BILIRUBIN TOTAL 0.7 mg/dL (0.2-1.0); BUN/CREATININE RATIO 16.9 (14-18); CREATININE 1.3 mg/dL (0.7-1.3); EST CRCL DRUG DOSING (CG) 60.34 mL/min; POTASSIUM,K 4.2 mEq/L (3.5-5.1); PROTEIN TOTAL,TP 6.7 g/dl (6.4-8.2)
[2023-12-19 05:57] LABS: BASOPHILS ABSOLUTE AUTO 0.1 K/mm3 (0.0-0.2); BASOPHILS PERCENT AUTO 0.7 % (0.0-1.0); EOSINOPHILS ABSOLUTE AUTO 0.1 K/mm3 (0.0-0.4); EOSINOPHILS PERCENT AUTO 1.4 % (0.0-6.0); HEMATOCRIT 44.1 % (42.0-52.0); HEMOGLOBIN 14.7 gm/dl (14.0-18.0); IMMATURE GRAN PERCENT AUTO 1.3 % (0.0-0.4); LYMPHOCYTES ABSOLUTE AUTO 2.8 K/mm3 (1.0-4.8); LYMPHOCYTES PERCENT AUTO 36.3 % (24.0-44.0); MEAN CORPUSCULAR HEMOGLOBIN 30.4 pg (28.0-32.0); MEAN CORPUSCULAR HGB CONC 33.3 g/dl (32.0-36.0); MEAN CORPUSCULAR VOLUME 91.3 fl (83.0-99.0); MEAN PLATELET VOLUME 10.1 fl (9.4-12.4); MONOCYTES ABSOLUTE AUTO 0.5 K/mm3 (0.0-0.8); MONOCYTES PERCENT AUTO 6.4 % (0.0-8.0); NEUTROPHILS ABSOLUTE AUTO 4.1 K/mm3 (1.8-7.7); NEUTROPHILS PERCENT AUTO 53.9 % (41.0-71.0); PLATELET COUNT,PLT 199 K/mm3 (150-400); RED BLOOD CELL COUNT 4.83 M/mm3 (4.52-5.90); WHITE BLOOD CELL COUNT,WBC 7.68 K/mm3 (3.9-11.3)
[2023-12-19 06:03] LABS: INR 2.07
[2023-12-19 08:38] VITALS: PULSE 98
[2023-12-19 12:05] VITALS: BP 122/78
== END 2023-12-19 12:00 | disposition home or self-care (01) | DRG 291 ==
LOC: JD.ED 22:52 → JD.MS 12-14 06:56 → JD.ICU 12-14 08:03
PROVIDERS: ADMIT Internal Medicine; ATTEND Internal Medicine
DX: I50.43 Acute on chronic combined systolic (congestive) and diastolic (congestive) heart failure (principal); J18.9 Pneumonia, unspecified organism; I48.91 Unspecified atrial fibrillation; E66.9 Obesity, unspecified; Z68.33 Body mass index [BMI] 33.0-33.9, adult; M1A.9XX1 Chronic gout, unspecified, with tophus (tophi); I50.811 Acute right heart failure; I10 Essential (primary) hypertension; I51.3 Intracardiac thrombosis, not elsewhere classified; Z79.899 Other long term (current) drug therapy; Z79.01 Long term (current) use of anticoagulants; I25.2 Old myocardial infarction; Z68.31 Body mass index [BMI] 31.0-31.9, adult
CPT/HCPCS: 36415 ×2; 71045; 80053; 83880; 84484 ×2; 84550; 85025; 85610; 93005 ×2; 96374; 96375; 96376; 99285; J1940; J2270 ×2; 83735; 85730; 87040; 93010; 93307; 94640; 94660; 94762; A9270-GY; J0696; J1644; J3490; J7620-GY

== ENCOUNTER 2024-02-16 08:56 | Emergency (ER) | payer MEDICARE, MEDICAID ==
[2024-02-16] MEDS: Diltiazem 25 MG/5 ML SDV IVPUSH ONE (09:23)
[2024-02-16] MEDS: Sodium Chloride 0.9% 10 ML Syringe FLUSH PRN (09:24)
[2024-02-16 09:32] LABS: BASOPHILS PERCENT AUTO 0.5 % (0.0-1.0); EOSINOPHILS PERCENT AUTO 0.1 % (0.0-6.0); HEMATOCRIT 51.1 % (42.0-52.0); IMMATURE GRAN ABSOLUTE AUTO 0.03 K/mm3 (0.00-0.05); IMMATURE GRAN PERCENT AUTO 0.4 % (0.0-0.4); LYMPHOCYTES ABSOLUTE AUTO 1.9 K/mm3 (1.0-4.8); LYMPHOCYTES PERCENT AUTO 21.9 % (24.0-44.0); MEAN CORPUSCULAR HEMOGLOBIN 29.7 pg (28.0-32.0); MEAN CORPUSCULAR HGB CONC 32.5 g/dl (32.0-36.0); MEAN CORPUSCULAR VOLUME 91.4 fl (83.0-99.0); MEAN PLATELET VOLUME 9.5 fl (9.4-12.4); MONOCYTES ABSOLUTE AUTO 0.5 K/mm3 (0.0-0.8); MONOCYTES PERCENT AUTO 5.5 % (0.0-8.0); NEUTROPHILS ABSOLUTE AUTO 6.1 K/mm3 (1.8-7.7); NEUTROPHILS PERCENT AUTO 71.6 % (41.0-71.0); PLATELET COUNT,PLT 191 K/mm3 (150-400); RED BLOOD CELL COUNT 5.59 M/mm3 (4.52-5.90); WHITE BLOOD CELL COUNT,WBC 8.44 K/mm3 (3.9-11.3)
[2024-02-16 09:37] LABS: HEMOGLOBIN 16.6 gm/dl (14.0-18.0)
[2024-02-16 09:47] LABS: INR 1.8; PROTHROMBIN TIME 18.4 SECONDS (9.7-12.0)
[2024-02-16 10:02] LABS: A/G RATIO 1.2 (1-2); ALBUMIN 3.7 g/dl (3.4-5.0); ANION GAP 17.4 (5-15); BILIRUBIN TOTAL 2.6 mg/dL (0.2-1.0); BUN/CREATININE RATIO 13.3 (14-18); CALCIUM 9.1 mg/dL (8.5-10.1); CREATININE 1.2 mg/dL (0.7-1.3); EST CRCL DRUG DOSING (CG) 65.36 mL/min; MAGNESIUM 1.9 mg/dL (1.8-2.4); POTASSIUM,K 4.4 mEq/L (3.5-5.1); PROTEIN TOTAL,TP 6.7 g/dl (6.4-8.2)
[2024-02-16 11:25] LABS: CORONAVIRUS COVID-19 NAA NEGATIVE (NEGATIVE); INFLUENZA A NAA NEGATIVE (NEGATIVE); RESPIRATORY SYNCYTIAL VIR NAA NEGATIVE (NEGATIVE)
[2024-02-16] MEDS: Furosemide 40 MG/4 ML VIAL IVPUSH ONE (11:30)
[2024-02-16] MEDS: Morphine 4 MG/ML Syringe IVPUSH ONE (12:54)
[2024-02-16 15:52] VITALS: BP 140/94; PULSE 90
== END 2024-02-16 15:15 ==
LOC: JD.ED 08:56
DX: I48.91 Unspecified atrial fibrillation (principal); I11.0 Hypertensive heart disease with heart failure; I50.9 Heart failure, unspecified; R07.9 Chest pain, unspecified; R79.89 Other specified abnormal findings of blood chemistry; I25.2 Old myocardial infarction; E66.9 Obesity, unspecified; Z79.01 Long term (current) use of anticoagulants; Z79.899 Other long term (current) drug therapy; Z68.30 Body mass index [BMI] 30.0-30.9, adult
CPT/HCPCS: 0241U; 36415; 71045; 80053; 83690; 83735; 83880; 84484; 85025; 85610; 93005; 96374; 96375; 99285; J1940; J2270; J3490; 93010